=== PATIENT | male | born 1970 | race Caucasian/White ===

== ENCOUNTER 2017-07-18 11:23 | Inpatient (IN) | payer OTHER ==
[2017-07-18 13:41] LABS: BASOPHIL 0.2 % (0-2.0); EOSINOPHIL 0.3 % (0-4.5); MCHC 33.8 g/dl (32.0-35.9); MEAN CELL VOLUME 97.8 fl (80-96); MEAN PLT VOLUME 8.3 fl (7.5-11.1); NEUTROPHILS 89.9 % (42.8-82.8); PLATELET COUNT 195 K/MM3 (134-434); RDW 13.1 % (11.9-15.9); WHITE BLOOD COUNT 14.8 K/mm3 (4.0-10.0)
[2017-07-18 14:07] LABS: ALBUMIN 3.9 g/dl (3.4-5.0); ANION GAP 5 (8-16); BILIRUBIN,TOTAL 0.2 mg/dL (0.2-1.0); CALCIUM 9.6 mg/dL (8.5-10.1); CO2 32 mmol/L (21-32); CREATININE 1.1 mg/dL (0.7-1.3); GLUCOSE,RANDOM 121 mg/dL (74-106); SGOT/AST 12 U/L (15-37); SGPT/ALT 18 U/L (12-78); TOT PROT 7.5 g/dl (6.4-8.2)
[2017-07-18 14:08] LABS: ALK PHOS 64 U/L (45-117)
--- NOTE | 2017-07-18 15:52 | PDOC ---
History of Present Illness - General History Source: Patient Exam Limitations: No Limitations - History of Present Illness Initial Comments: 07/18/17 16:09 The patient is a 47 year old male with a significant past medical history of mild mental retardation, seizure disorder, schizophrenia, depression and hypertension who presents to the ED s/p fall earlier today. The patient reports he was walking down a flight of stairs when he tripped and fell down 3 stairs towards the bottom. Patient states he landed on his back but denies injury to the head. Patient reports pain to his lower back and a slight frontal headache. Denies fever or chills. Denies nausea, vomiting. Denies cough. Denies loss of consciousness. Denies any other symptoms. Denies a history of falling. <Char Whatley - Last Filed: 07/18/17 16:33> - General History Source: Patient, Other (aid) Exam Limitations: No Limitations <Dana Ricketts - Last Filed: 07/18/17 17:00> - General Chief Complaint: Injury Stated Complaint: INJURY Time Seen by Provider: 07/18/17 12:36 Past History <Char Whatley - Last Filed: 07/18/17 16:33> - Past Medical History GI Disorders: Yes Psychiatric Problems: Yes (depression,explosive d/o) Seizures: Yes - Suicide/Smoking/Psychosocial Hx Smoking History: Never smoked Have you smoked in the past 12 months: No Number of Cigarettes Smoked Daily: 0 Cigars Per Day: 0 Information on smoking cessation initiated: No Hx Alcohol Use: No Drug/Substance Use Hx: No Substance Use Type: None <Dana Ricketts - Last Filed: 07/18/17 17:00> - Past Medical History Allergies/Adverse Reactions: Allergies Allergy/AdvReac Type Severity Reaction Status Date / Time No Known Allergies Allergy Verified 07/18/17 12:58 Home Medications: Ambulatory Orders Bethanechol Chloride [Urecholine -] 50 mg PO BID 10/28/15 Buspirone HCl [Buspar -] 15 mg PO BID 10/28/15 Calcium Carbonate/Vitamin D3 [Oystercal-D 500 mg-400 Unit Tb] 1 each PO DAILY Clozapine [Clozaril] 300 mg PO DAILY 10/28/15 Divalproex *ER* [Depakote *ER* -] 250 mg PO DAILY 10/28/15 Divalproex *ER* [Depakote *ER* -] 500 mg PO HS 10/28/15 Docusate Sodium [Colace -] 300 mg PO TID 10/28/15 Enalapril Maleate [Vasotec -] 2.5 mg PO DAILY 10/28/15 Ergocalciferol (Vitamin D2) [Vitamin D] 50,000 unit PO DAILY 10/28/15 Folic Acid - 1 mg PO DAILY 10/28/15 Lacosamide [Vimpat -] 50 mg PO BID 10/28/15 Levothyroxine [Synthroid -] 15 mcg PO DAILY 10/28/15 Levothyroxine [Synthroid -] 175 mcg PO DAILY 10/28/15 [place] Carbonate [Eskalith -] 450 mg PO BID 10/28/15 Multivitamins [Tab-A-Vit -] 1 tab PO DAILY 10/28/15 Omeprazole [Prilosec (RX)] 20 mg PO DAILY 10/28/15 Sennosides [Senna] 8.6 mg PO BID 10/28/15 Tamsulosin HCl [Flomax] 0.4 mg PO DAILY 10/28/15 Review of Systems - Review of Systems Able to Perform ROS?: Yes Comments:: 07/18/17 16:09 GENERAL/CONSTITUTIONAL: No fever or chills. No weakness. HEAD, EYES, EARS, NOSE AND THROAT: No change in vision. No ear pain or discharge. No sore throat. CARDIOVASCULAR: No chest pain or shortness of breath. RESPIRATORY: No cough, wheezing, or hemoptysis. GASTROINTESTINAL: No nausea, vomiting, diarrhea or constipation. GENITOURINARY: No dysuria, frequency, or change in urination. MUSCULOSKELETAL: + back pain. No joint or muscle swelling or pain. No neck pain. SKIN: No rash NEUROLOGIC: + headache. No vertigo, loss of consciousness, or change in strength/sensation. ENDOCRINE: No increased thirst. No abnormal weight change. HEMATOLOGIC/LYMPHATIC: No anemia, easy bleeding, or history of blood clots. ALLERGIC/IMMUNOLOGIC: No hives or skin allergy. All Other Systems: Reviewed and Negative <Char Whatley - Last Filed: 07/18/17 16:33> *Physical Exam - Vital Signs Last Vital Signs Temp Pulse Resp BP Pulse Ox 98.6 F 72 16 131/70 100 07/18/17 11:38 07/18/17 11:38 07/18/17 11:38 07/18/17 11:38 07/18/17 11:38 - Physical Exam Comments: 07/18/17 16:09 GENERAL: Awake, alert, and fully oriented, in no acute distress HEAD: No signs of trauma EYES: PERRLA, EOMI, sclera anicteric, conjunctiva clear ENT: Auricles normal inspection, hearing grossly normal, nares patent, oropharynx clear without exudates. Moist mucosa NECK: Normal ROM, supple, no lymphadenopathy, JVD, or masses. No midline cervical spinal tenderness. LUNGS: Breath sounds equal, clear to auscultation bilaterally. No wheezes, and no crackles HEART: Regular rate and rhythm, normal S1 and S2, no murmurs, rubs or gallops ABDOMEN: Soft, nontender, normoactive bowel sounds. No guarding, no rebound. No masses EXTREMITIES: Normal range of motion, no edema. No clubbing or cyanosis. No cords, erythema, or tenderness MUSCULOSKELETAL: + lower back tenderness. NEUROLOGICAL: Alert, oriented. GCS 25, 5/5 strength intact. At baseline. SKIN: Warm, Dry, normal turgor, no rashes or lesions noted. <Char Whatley - Last Filed: 07/18/17 16:33> - Vital Signs Last Vital Signs Temp Pulse Resp BP Pulse Ox 98.6 F 72 16 131/70 100 07/18/17 11:38 07/18/17 11:38 07/18/17 11:38 07/18/17 11:38 07/18/17 11:38 <Dana Ricketts - Last Filed: 07/18/17 17:00> Heart Score/ECG Review #1 General ECG Interpretation: Sinus Rhythm, Normal Rate (72), Normal Intervals, No acute ischemic changes <Dana Ricketts - Last Filed: 07/18/17 17:00> ED Treatment Course - LABORATORY CBC & Chemistry Diagram: 07/18/17 13:31 07/18/17 13:31 - ADDITIONAL ORDERS Additional order review: Laboratory Results 07/18/17 07/18/17 13:31 13:31 Sodium 140 Potassium 4.5 Chloride 103 Carbon Dioxide 32 Anion Gap 5 L BUN 15 D Creatinine 1.1 D Creat Clearance w eGFR > 60 Random Glucose 121 H D Lactic Acid 1.1 Calcium 9.6 Total Bilirubin 0.2 D AST 12 L ALT 18 Alkaline Phosphatase 64 D Total Protein 7.5 Albumin 3.9 07/18/17 13:31 RBC 3.90 L MCV 97.8 H MCHC 33.8 RDW 13.1 MPV 8.3 Neutrophils % 89.9 H D Lymphocytes % 5.2 L D Monocytes % 4.4 Eosinophils % 0.3 D Basophils % 0.2 - RADIOLOGY Radiograph Interpretation: 07/18/17 16:33 CT/HEAD CT WITHOUT CONTRAST Impression: No CT evidence of acute intracranial pathology. Reported by: Jose Miguel Barton CT/CERVICAL SPINE CT W/O CONTR Impression: No fracture is identified. CT/THORACIC SPINE CT W/O CONTRAST Impression: No thoracic spine fracture is identified. An acute nondisplaced fracture of the left eight rib is noted posteriorly. Several small right upper lobe opacities are seen which may be on the basis of infiltrates, pulmonary contusion or less likely groundglass pulmonary nodules. Correlate clinically and will close follow-up CT to evaluate for resolution. Reported by: Jose Miguel Barton - Medications Given in the ED: ED Medications Discontinued Medications Generic Name Dose Route Start Last Admin Trade Name Freq PRN Reason Stop Dose Admin Ketorolac Tromethamine 30 mg 07/18/17 15:55 07/18/17 16:02 Toradol Injection - IVPUSH 07/18/17 15:56 30 mg ONCE ONE Administration <Char Whatley - Last Filed: 07/18/17 16:33> - LABORATORY CBC & Chemistry Diagram: 07/18/17 13:31 07/18/17 13:31 - ADDITIONAL ORDERS Additional order review: Laboratory Results 07/18/17 07/18/17 13:31 13:31 Sodium 140 Potassium 4.5 Chloride 103 Carbon Dioxide 32 Anion Gap 5 L BUN 15 D Creatinine 1.1 D Creat Clearance w eGFR > 60 Random Glucose 121 H D Lactic Acid 1.1 Calcium 9.6 Total Bilirubin 0.2 D AST 12 L ALT 18 Alkaline Phosphatase 64 D Total Protein 7.5 Albumin 3.9 07/18/17 13:31 RBC 3.90 L MCV 97.8 H MCHC 33.8 RDW 13.1 MPV 8.3 Neutrophils % 89.9 H D Lymphocytes % 5.2 L D Monocytes % 4.4 Eosinophils % 0.3 D Basophils % 0.2 <Dana Ricketts - Last Filed: 07/18/17 17:00> Medical Decision Making - Medical Decision Making 07/18/17 16:[address] Rendon at 16:03. Patient will be admitted <Char Whatley - Last Filed: 07/18/17 16:33> - Medical Decision Making 07/18/17 15:50 47 yo male with h/o schizoaffective disorde,r epilepsy, under 24 hour care here with aid. for fall down stairs. pt states he was walking down stairs, and tripped. fell down 3 - 4 stairs towards bottom of stair case. landed on his back. denies loc. does c/o mild headach.e no new weakness. numbness no vomiting. no f/c no other complaints. fall was unwitness. pt at his baseline. on exam awake alert head atraumatic. no cervical spine tenderness. lungs clear bilaterally heart rrr no mrg abd soft nt nd. ext wwp. no edema. no swelling. plan: r/o traumatic injury ct head. cervical spine and spinal ct r/o fx. pain control. arabella robertson back to facility. 07/18/17 16:29 pt wiht rib fracture. and possible infiltrate. no sxs or trauma suggestive of contusion. will treat with ceftriaxone and azithromycin. due to rib fracture in prescence of infection will admit of pain control, incentive spirometry and abx. d/w pushpinder sings. will admit to observationl. <Dana Ricketts - Last Filed: 07/18/17 17:00> *DC/Admit/Observation/Transfer - Attestations Scribe Attestion: 07/18/17 16:09 Documentation prepared by Char Whatley, acting as biomedical photographer for Dana Ricketts MD <Char Whatley - Last Filed: 07/18/17 16:33> - Discharge Dispostion Admit: Yes <Dana Ricketts - Last Filed: 07/18/17 17:00> Diagnosis at time of Disposition: Pneumonia, Closed rib fracture - Referrals
[2017-07-18] MEDS ORDERED: KETOROLAC TROMETHAMINE 30 MG/1 ML VIAL IVPUSH ONE (15:55)
[2017-07-18] MEDS ORDERED: CEFTRIAXONE 1 GM in DEXTROSE 5%-WATER - 100 ML IVPB ONE (16:08)
[2017-07-18] MEDS ORDERED: AZITHROMYCIN IVPB 500 MG in DEXTROSE 5%-WATER - 250 ML IVPB ONE (16:08)
[2017-07-18] MEDS ORDERED: cefTRIAXone SODIUM 1 GM VIAL ONE ×2 (16:48→16:49)
[2017-07-18] MEDS ORDERED: KETOROLAC TROMETHAMINE 30 MG/1 ML VIAL ONE (16:48)
[2017-07-18] MEDS ORDERED: AZITHROMYCIN IVPB 250 ML IVPB ONE (16:48)
[2017-07-18] MEDS ORDERED: ALBUTEROL SO4 0.083% IH SOL 2.5 MG/3 ML VIAL.NEB. NEB PRN (17:34)
[2017-07-18] MEDS ORDERED: CEFTRIAXONE 50 ML ONE (18:55)
[2017-07-18 20:14] VITALS: BMI 20.6
[2017-07-18 21:11] LABS: BASOPHIL 0.1 % (0-2.0); EOSINOPHIL 0.5 % (0-4.5); MCH 33.9 pg (25.7-33.7); MCHC 34.3 g/dl (32.0-35.9); MEAN CELL VOLUME 98.7 fl (80-96); MEAN PLT VOLUME 8.5 fl (7.5-11.1); NEUTROPHILS 79.1 % (42.8-82.8); PLATELET COUNT 183 K/MM3 (134-434); RDW 13.3 % (11.9-15.9); WHITE BLOOD COUNT 8.6 K/mm3 (4.0-10.0)
[2017-07-18] MEDS: LITHIUM CARBONATE 450 MG TABLET.ER PO SCH (21:31)
[2017-07-18] MEDS: busPIRone HCL 5 MG TABLET PO SCH (21:31)
[2017-07-18] MEDS: DIVALPROEX NA *ER* EXTEND REL 500 MG TABLET.SA (FP) PO SCH (21:31)
[2017-07-18] MEDS: BETHANECHOL CHLORIDE 25 MG TABLET PO SCH (21:31)
[2017-07-18] MEDS: HEPARIN NA (PORCINE) 5,000 UNITS/ML 1ML VIAL SQ SCH (21:32)
[2017-07-18] MEDS: LACOSAMIDE 50 MG TABLET PO SCH (21:32)
[2017-07-18] MEDS: SENNOSIDES 8.6MG TABLET (FP) PO SCH (21:32)
[2017-07-19] MEDS: ACETAMINOPHEN 325 MG TABLET (FP) PO PRN ×2 (05:04→13:04)
[2017-07-19] MEDS ORDERED: LEVOTHYROXINE NA 100 MCG TABLET (FP) ONE (05:53)
[2017-07-19] MEDS ORDERED: LEVOTHYROXINE NA 75 MCG TABLET (FP) ONE (05:53)
[2017-07-19] MEDS: LEVOTHYROXINE 100 MCG, LEVOTHYROXINE 75 MCG PO SCH (06:22)
--- NOTE | 2017-07-19 09:55 | EKG ---
Test Reason : Blood Pressure : / mmHG Vent. Rate : 072 BPM Atrial Rate : 072 BPM P-R Int : 162 ms QRS Dur : 100 ms QT Int : 372 ms P-R-T Axes : 072 026 043 degrees QTc Int : 407 ms POOR DATA QUALITY, INTERPRETATION MAY BE ADVERSELY AFFECTED NORMAL SINUS RHYTHM NORMAL ECG WHEN COMPARED WITH ECG OF 08-DEC-2009 12:48, NO SIGNIFICANT CHANGE WAS FOUND Confirmed by JOVANY RIZVI MD ([id number]) on 07/19/2017 9:54:45 AM Referred By: Confirmed By:JOVANY RIZVI MD
[2017-07-19] MEDS ORDERED: LEVOTHYROXINE NA 175 MCG TABLET PO SCH (10:00)
[2017-07-19] MEDS ORDERED: PATIENT'S OWN MEDICATION (NON-FORMULARY) (Calcium Carbonate/Vitamin D3 [Oystercal-D 500 Mg PO SCH (10:00)
[2017-07-19] MEDS ORDERED: PATIENT'S OWN MEDICATION (NON-FORMULARY) (Omeprazole 20 MG) PO SCH (10:00)
[2017-07-19] MEDS ORDERED: CLOZAPINE 300 MG PO SCH (10:00)
[2017-07-19] MEDS ORDERED: cefTRIAXone SODIUM 1 GM VIAL ONE (10:15)
[2017-07-19] MEDS ORDERED: PT OWN MED DRAWER 7, Y5N ONE ×2 (10:15→21:01)
[2017-07-19] MEDS ORDERED: DEXTROSE 5%-WATER - 50 ML IVPB ONE (10:15)
[2017-07-19] MEDS: CEFTRIAXONE 1 GM in DEXTROSE 5%-WATER - 50 ML IVPB SCH (10:23)
[2017-07-19] MEDS: FOLIC ACID 1 MG TABLET (FP) PO SCH (10:24)
[2017-07-19] MEDS: TAMSULOSIN HCL 0.4 MG CAP.ER.24H (FP) PO SCH (10:24)
[2017-07-19] MEDS: SENNOSIDES 8.6MG TABLET (FP) PO SCH ×2 (10:24→21:02)
[2017-07-19] MEDS: ENALAPRIL MALEATE 2.5 MG TABLET (FP) PO SCH (10:24)
[2017-07-19] MEDS: BETHANECHOL CHLORIDE 25 MG TABLET PO SCH ×2 (10:24→21:02)
[2017-07-19] MEDS: MULTIVITAMINS (DAILY MVI) TABLET (FP) PO SCH (10:24)
[2017-07-19] MEDS: LACOSAMIDE 50 MG TABLET PO SCH ×2 (10:24→21:02)
[2017-07-19] MEDS: PANTOPRAZOLE 20 MG TABLET (FP) PO SCH (10:24)
[2017-07-19] MEDS: HEPARIN NA (PORCINE) 5,000 UNITS/ML 1ML VIAL SQ SCH ×2 (10:25→21:02)
[2017-07-19] MEDS: CALCIUM 500MG/VIT-D 200 UNITS COMBO TABLET (FP) PO SCH (10:25)
[2017-07-19] MEDS: DIVALPROEX NA *ER* EXTEND REL 250 MG TABLET.SA PO SCH (10:26)
[2017-07-19] MEDS: busPIRone HCL 5 MG TABLET PO SCH ×2 (10:26→21:03)
[2017-07-19] MEDS: cloZAPine 100 MG TABLET PO SCH (10:27)
[2017-07-19] MEDS: LITHIUM CARBONATE 450 MG TABLET.ER PO SCH ×2 (10:27→21:03)
[2017-07-19] MEDS ORDERED: clonazePAM 0.5 MG TABLET PO PRN (15:12)
--- NOTE | 2017-07-19 15:19 | HP ---
Admitting History and Physical - Primary Care Physician PCP: Rios Rendon - Admission Chief Complaint: fall History of Present Illness: The patient is a 47 year old male with a significant past medical history of mild mental retardation, seizure disorder, schizophrenia, hypothyroidism, depression and hypertension who presents to the ED s/p fall . The patient reports he was walking down a flight of stairs when he tripped and fell down 3 stairs towards the bottom. Patient states he landed on his back but denies injury to the head. Patient reports pain to his lower back and a slight frontal headache. Denies fever or chills. Denies nausea, vomiting. Denies cough. Denies loss of consciousness. Denies any other symptoms. Denies a history of falling. work up done in er was -ve except showed rib fracture and possible pneumonia / lung opacities wbc were elevated also given abx ct head-ve pt kept for obs case was discussed with er physician. pt seen today sitting in chair. no distress. poor historian. denies pain. no cough/ headche. no h/o fever/ chills History Source: Medical Record, Caregiver - Smoking History Smoking history: Never smoked Have you smoked in the past 12 months: No Aproximately how many cigarettes per day: 0 - Alcohol/Substance Use Hx Alcohol Use: No Home Medications - Allergies Allergies/Adverse Reactions: Allergies Allergy/AdvReac Type Severity Reaction Status Date / Time No Known Allergies Allergy Verified 07/18/17 12:58 - Home Medications Home Medications: Ambulatory Orders Bethanechol Chloride [Urecholine -] 50 mg PO BID 10/28/15 Buspirone HCl [Buspar -] 15 mg PO BID 10/28/15 Calcium Carbonate/Vitamin D3 [Oystercal-D 500 mg-400 Unit Tb] 1 each PO DAILY Clozapine [Clozaril] 300 mg PO DAILY 10/28/15 Divalproex *ER* [Depakote *ER* -] 250 mg PO DAILY 10/28/15 Divalproex *ER* [Depakote *ER* -] 500 mg PO HS 10/28/15 Docusate Sodium [Colace -] 300 mg PO TID 10/28/15 Enalapril Maleate [Vasotec -] 2.5 mg PO DAILY 10/28/15 Ergocalciferol (Vitamin D2) [Vitamin D] 50,000 unit PO DAILY 10/28/15 Folic Acid - 1 mg PO DAILY 10/28/15 Lacosamide [Vimpat -] 50 mg PO BID 10/28/15 Levothyroxine [Synthroid -] 15 mcg PO DAILY 10/28/15 Levothyroxine [Synthroid -] 175 mcg PO DAILY 10/28/15 [place] Carbonate [Eskalith -] 450 mg PO BID 10/28/15 Multivitamins [Tab-A-Vit -] 1 tab PO DAILY 10/28/15 Omeprazole [Prilosec (RX)] 20 mg PO DAILY 10/28/15 Sennosides [Senna] 8.6 mg PO BID 10/28/15 Tamsulosin HCl [Flomax] 0.4 mg PO DAILY 10/28/15 Review of Systems Findings/Remarks: see rampart Physical Examination Vital Signs: Vital Signs Temperature 98.3 F 07/19/17 08:00 Pulse Rate 71 07/19/17 11:03 Respiratory Rate 20 07/19/17 08:00 Blood Pressure 149/73 07/19/17 08:00 O2 Sat by Pulse Oximetry (%) 97 07/19/17 11:03 Constitutional: Yes: No Distress, Calm Eyes: Yes: Conjunctiva Clear Neck: Yes: Supple Cardiovascular: Yes: Regular Rate and Rhythm Respiratory: Yes: CTA Bilaterally Gastrointestinal: Yes: Normal Bowel Sounds, Soft Edema: No Neurological: Yes: Alert Psychiatric: Yes: Alert Labs: CBC, BMP 07/18/17 20:00 Imaging - Results Chest X-ray: Report Reviewed Cat Scan: Report Reviewed EKG: Report Reviewed Problem List - Problems (1) Closed rib fracture Code(s): S22.39XA - FRACTURE OF ONE RIB, UNSP SIDE, INIT FOR CLOS FX (2) Pneumonia Code(s): J18.9 - PNEUMONIA, UNSPECIFIED ORGANISM (3) Hypertension Code(s): I10 - ESSENTIAL (PRIMARY) HYPERTENSION (4) Mental retardation Code(s): F79 - UNSPECIFIED INTELLECTUAL DISABILITIES (5) Hypothyroidism Code(s): E03.9 - HYPOTHYROIDISM, UNSPECIFIED Assessment/Plan stable doubt pneumonia cxr ok. will order ct chest. meds reviewed lithium level pending fall precautions. if stable- anticipate d/c in am.
[2017-07-19] MEDS: DIVALPROEX NA *ER* EXTEND REL 500 MG TABLET.SA (FP) PO SCH (21:03)
[2017-07-20] MEDS ORDERED: LEVOTHYROXINE NA 75 MCG TABLET (FP) ONE (05:34)
[2017-07-20] MEDS ORDERED: LEVOTHYROXINE NA 100 MCG TABLET (FP) ONE (05:34)
[2017-07-20] MEDS: LEVOTHYROXINE 100 MCG, LEVOTHYROXINE 75 MCG PO SCH (06:10)
[2017-07-20] MEDS ORDERED: VANCOMYCIN 1,000 MG in DEXTROSE 5%-WATER - 250 ML IVPB ONE (09:30)
[2017-07-20] MEDS ORDERED: cefTRIAXone SODIUM 1 GM VIAL ONE (10:28)
[2017-07-20] MEDS ORDERED: DEXTROSE 5%-WATER - 50 ML IVPB ONE (10:28)
[2017-07-20] MEDS ORDERED: PT OWN MED DRAWER 7, Y5N ONE ×2 (10:28→18:06)
[2017-07-20] MEDS: MULTIVITAMINS (DAILY MVI) TABLET (FP) PO SCH (10:31)
[2017-07-20] MEDS: HEPARIN NA (PORCINE) 5,000 UNITS/ML 1ML VIAL SQ SCH ×2 (10:31→21:38)
[2017-07-20] MEDS: LACOSAMIDE 50 MG TABLET PO SCH ×2 (10:31→21:38)
[2017-07-20] MEDS: CALCIUM 500MG/VIT-D 200 UNITS COMBO TABLET (FP) PO SCH (10:31)
[2017-07-20] MEDS: BETHANECHOL CHLORIDE 25 MG TABLET PO SCH ×2 (10:32→21:38)
[2017-07-20] MEDS: SENNOSIDES 8.6MG TABLET (FP) PO SCH ×2 (10:32→21:38)
[2017-07-20] MEDS: ENALAPRIL MALEATE 2.5 MG TABLET (FP) PO SCH (10:32)
[2017-07-20] MEDS: PANTOPRAZOLE 20 MG TABLET (FP) PO SCH (10:32)
[2017-07-20] MEDS: TAMSULOSIN HCL 0.4 MG CAP.ER.24H (FP) PO SCH (10:32)
[2017-07-20] MEDS: FOLIC ACID 1 MG TABLET (FP) PO SCH (10:32)
[2017-07-20] MEDS: CEFTRIAXONE 1 GM in DEXTROSE 5%-WATER - 50 ML IVPB SCH (10:34)
[2017-07-20] MEDS: busPIRone HCL 5 MG TABLET PO SCH ×2 (10:35→21:39)
[2017-07-20] MEDS: cloZAPine 100 MG TABLET PO SCH (10:36)
[2017-07-20] MEDS: DIVALPROEX NA *ER* EXTEND REL 250 MG TABLET.SA PO SCH (10:37)
[2017-07-20] MEDS: LITHIUM CARBONATE 450 MG TABLET.ER PO SCH ×2 (10:38→21:39)
--- NOTE | 2017-07-20 10:42 | PN ---
Progress Note (short form) - Note Progress Note: ID consult dictated imp/reccd s/p fall with rib fracture bacteremia possible pneumonia leukocytosis one of four blood cultures positive gpc clusters, suspect contaminant no signs of skin breakdown or clinical endocarditis repeat blood cultures prior to vancomycin on rocephin for possible pneumonia, f/u chest ct Problem List - Problems (1) Bacteremia Code(s): R78.81 - BACTEREMIA (2) Pneumonia Code(s): J18.9 - PNEUMONIA, UNSPECIFIED ORGANISM (3) Leukocytosis Code(s): D72.829 - ELEVATED WHITE BLOOD CELL COUNT, UNSPECIFIED
[2017-07-20] MEDS: DOCUSATE SODIUM 100 MG CAPSULE (FP) PO SCH ×2 (13:45→21:38)
[2017-07-20] MEDS: ACETAMINOPHEN 325 MG TABLET (FP) PO PRN (14:07)
--- NOTE | 2017-07-20 19:34 | PN ---
Progress Note (short form) - Note Progress Note: pt seen/ examined earlier today c/c- pain in back +ve one set of cultute-- GM +ve no other issues afebrile given one dose of vanco Vital Signs Temp 98.4 F 07/20/17 18:00 Pulse 97 H 07/20/17 18:00 Resp 20 07/20/17 18:00 BP 106/66 07/20/17 18:00 Pulse Ox 100 07/20/17 12:00 Intake & Output 07/19/17 07/20/17 07/20/17 23:59 11:59 23:59 Intake Total 350 50 450 Balance 350 50 450 Intake: IVPB 50 50 50 Oral 300 400 Other: Voiding Method Toilet Toilet Toilet # Unmeasured Voids Void 3 1 Bowel Movement No # Bowel Movements 0 Active Medications Acetaminophen (Tylenol -) 650 mg PO Q4H PRN PRN Reason: FEVER OR PAIN Last Admin: 07/20/17 14:07 Dose: 650 mg Albuterol Sulfate (Ventolin 0.083% Nebulizer Soln -) 1 amp NEB Q4H PRN PRN Reason: SHORT OF BREATH/WHEEZING Bethanechol Chloride (Urecholine -) 50 mg PO BID [facility] Last Admin: 07/20/17 10:32 Dose: 50 mg Buspirone HCl (Buspar -) 15 mg PO BID [facility] Last Admin: 07/20/17 10:35 Dose: 15 mg Calcium Carbonate/Cholecalciferol (Os-Arturo 500+D -) 1 tab PO DAILY [facility] Last Admin: 07/20/17 10:31 Dose: 1 tab Clonazepam (Klonopin -) 0.5 mg PO BID PRN PRN Reason: ANXIETY Clozapine (Clozaril -) 300 mg PO DAILY [facility] Last Admin: 07/20/17 10:36 Dose: 300 mg Divalproex Sodium (Depakote *Er* -) 250 mg PO DAILY [facility] Last Admin: 07/20/17 10:37 Dose: 250 mg Divalproex Sodium (Depakote *Er* -) 500 mg PO HS [facility] Last Admin: 07/19/17 21:03 Dose: 500 mg Docusate Sodium (Colace -) 100 mg PO TID [facility] Last Admin: 07/20/17 13:45 Dose: 100 mg Enalapril Maleate (Vasotec -) 2.5 mg PO DAILY [facility] Last Admin: 07/20/17 10:32 Dose: 2.5 mg Folic Acid (Folic Acid -) 1 mg PO DAILY [facility] Last Admin: 07/20/17 10:32 Dose: 1 mg Heparin Sodium (Porcine) (Heparin -) 5,000 unit SQ BID [facility] Last Admin: 07/20/17 10:31 Dose: 5,000 unit Ceftriaxone Sodium 1 gm/ (Dextrose) 50 mls @ 100 mls/hr IVPB DAILY [facility] Last Admin: 07/20/17 10:34 Dose: 100 mls/hr Lacosamide (Vimpat -) 50 mg PO BID [facility] Last Admin: 07/20/17 10:31 Dose: 50 mg Levothyroxine Sodium (Synthroid -) 150 mcg PO SuFrSa@0700 [facility] Levothyroxine Sodium 100 mcg/ (Levothyroxine Sodium 75 mcg) 175 mcg PO MoTuWeTh @0700 [facility] [place] Carbonate (Eskalith -) 450 mg PO BID [facility] Last Admin: 07/20/17 10:38 Dose: 450 mg Multivitamins/Minerals/Vitamin C (Tab-A-Vit -) 1 tab PO DAILY [facility] Last Admin: 07/20/17 10:31 Dose: 1 tab Naproxen (Naprosyn -) 500 mg PO BID PRN PRN Reason: BACK PAIN Pantoprazole Sodium (Protonix -) 20 mg PO DAILY [facility] Last Admin: 07/20/17 10:32 Dose: 20 mg Senna (Senna -) 1 tab PO BID [facility] Last Admin: 07/20/17 10:32 Dose: 1 tab Tamsulosin HCl (Flomax -) 0.4 mg PO DAILY@0830 [facility] Last Admin: 07/20/17 10:32 Dose: 0.4 mg CBC, BMP 07/18/17 20:00 07/18/17 13:31 ct chest-- noted Microbiology 07/18/17 16:59 Blood Culture - Preliminary Blood - Peripheral Venous NO GROWTH OBTAINED AFTER 48 HOURS, INCUBATION TO CONTINUE FOR 3 DAYS. 07/18/17 16:59 Blood Culture - Preliminary Blood - Peripheral Venous Pending Organism Physical Examination Constitutional: Yes: No Distress, Calm Eyes: Yes: Conjunctiva Clear Neck: Yes: Supple Cardiovascular: Yes: Regular Rate and Rhythm Respiratory: Yes: CTA Bilaterally Gastrointestinal: Yes: Normal Bowel Sounds, Soft Edema: No Neurological: Yes: Alert Psychiatric: Yes: Alert Imaging - Results Chest X-ray: Report Reviewed Cat Scan: Report Reviewed EKG: Report Reviewed Assessment/Plan +ve gm +ve bactremia likley contaminant Pneumonia ? ct chest noted meds reviewed naproxyn for pain-likely muscular due to fall fall precautions. lithium level pending. will follow Problem List - Problems (1) Closed rib fracture Code(s): S22.39XA - FRACTURE OF ONE RIB, UNSP SIDE, INIT FOR CLOS FX (2) Pneumonia Code(s): J18.9 - PNEUMONIA, UNSPECIFIED ORGANISM (3) Hypertension Code(s): I10 - ESSENTIAL (PRIMARY) HYPERTENSION (4) Mental retardation Code(s): F79 - UNSPECIFIED INTELLECTUAL DISABILITIES (5) Hypothyroidism Code(s): E03.9 - HYPOTHYROIDISM, UNSPECIFIED
[2017-07-20] MEDS: NAPROXEN 500 MG TABLET (FP) PO PRN (19:48)
[2017-07-20] MEDS: DIVALPROEX NA *ER* EXTEND REL 500 MG TABLET.SA (FP) PO SCH (21:39)
--- NOTE | 2017-07-20 21:53 | CONS ---
DATE OF CONSULTATION: 07/20/2017 REQUESTING PROVIDER: Rios Rendon MD HISTORY: This is a 47-year-old man with past medical history of mild mental retardation, schizoaffective disorder, and depression. He lives in a long term. He tripped and sustained a fall down 3 steps towards the bottom. He landed on his back. He was brought to the emergency room where he had multiple imaging studies. He reports discomfort in his lower back. He had a head CT that was negative. Cervical spine and thoracic spine CT scans showed a left 8th rib fracture and possible pneumonia. He was noted to have an elevated white count, but no fevers. He was admitted for observation. Given his elevated white count, which was 14.8 on admission and the abnormal possible infiltrate on CT scan, he was started on ceftriaxone and a dedicated chest CT was ordered. I am asked to see him because one of four blood culture bottles is now growing gram-positive cocci and clusters. Patient is awake and alert. He still notes that he has some low back pain, but otherwise feels well. PAST MEDICAL HISTORY: Notable for a history of mild mental retardation, seizure disorder, depression, hypothyroidism, hypertension, and schizoaffective disorder. PAST SURGICAL HISTORY: There is no known surgical history. ALLERGIES: No known drug allergies. MEDICATIONS AT PRISON: Include Vimpat, clonazepam, Depakote, BuSpar, lithium, Vasotec, vitamin D, Os-Arturo, multivitamins, folic acid, omeprazole, senna, Colace, bethanechol, clozapine, Flomax, Synthroid. FAMILY HISTORY: Not available. SOCIAL HISTORY: As stated previously, resides in a long term. REVIEW OF SYSTEMS: He describes having low back pain, otherwise there are no complaints. PHYSICAL EXAMINATION: Vital signs: Since admission, he has been afebrile since admission. Current temperature is 98.2, pulse 84, blood pressure 128/80, respiratory rate 16, saturating 97% on room air. HEENT: He is normocephalic. His eyes are anicteric. He has poor dentition. He does not recall when he last went to the dentist. Neck: Supple. Lungs: Diminished breath sounds at the bases. Heart: Regular rate and rhythm. There are no murmurs, rubs, or gallops. Abdomen: Soft and nontender. Extremities: Without edema. He has no skin breakdown. He has no phlebitis. LABORATORY: White count on admission was 14.8. This morning it is 8.6, hemoglobin 12.6, platelets of 183. Chemistries: BUN is 15 and creatinine is 1.1. LFTs are normal. Blood cultures: 1 of 4 bottles are growing gram-positive cocci and clusters. Imaging is as previously reported. IN SUMMARY: This is a 47-year-old man, status post fall with rib fracture, bacteremia, possible pneumonia and leukocytosis. One of four blood cultures is positive for gram-positive cocci and clusters. I suspect contaminant as there is no sign of skin breakdown or clinical endocarditis. He has no fever as well. I would recommend we repeat blood cultures before giving him vancomycin. He is on Rocephin for possible pneumonia and would follow up chest CT to see if we need to continue this as well. Further recommendations to follow based on his clinical course. Jessica GONZALEZ/[id number]
[2017-07-21] MEDS ORDERED: LEVOTHYROXINE NA 75 MCG TABLET (FP) ONE (06:03)
[2017-07-21] MEDS ORDERED: LEVOTHYROXINE NA 100 MCG TABLET (FP) ONE (06:03)
[2017-07-21] MEDS: LEVOTHYROXINE 100 MCG, LEVOTHYROXINE 75 MCG PO SCH (06:05)
[2017-07-21] MEDS: DOCUSATE SODIUM 100 MG CAPSULE (FP) PO SCH ×3 (06:05→21:07)
[2017-07-21] MEDS: NAPROXEN 500 MG TABLET (FP) PO PRN ×2 (06:06→21:08)
[2017-07-21] MEDS: TAMSULOSIN HCL 0.4 MG CAP.ER.24H (FP) PO SCH (08:13)
[2017-07-21] MEDS ORDERED: PT OWN MED DRAWER 7, Y5N ONE (09:40)
[2017-07-21] MEDS ORDERED: cefTRIAXone SODIUM 1 GM VIAL ONE (09:40)
[2017-07-21] MEDS ORDERED: DEXTROSE 5%-WATER - 50 ML IVPB ONE (09:41)
[2017-07-21] MEDS: CEFTRIAXONE 1 GM in DEXTROSE 5%-WATER - 50 ML IVPB SCH (09:41)
[2017-07-21] MEDS: PANTOPRAZOLE 20 MG TABLET (FP) PO SCH (09:42)
[2017-07-21] MEDS: CALCIUM 500MG/VIT-D 200 UNITS COMBO TABLET (FP) PO SCH (09:42)
[2017-07-21] MEDS: ENALAPRIL MALEATE 2.5 MG TABLET (FP) PO SCH (09:42)
[2017-07-21] MEDS: SENNOSIDES 8.6MG TABLET (FP) PO SCH ×2 (09:42→21:07)
[2017-07-21] MEDS: FOLIC ACID 1 MG TABLET (FP) PO SCH (09:42)
[2017-07-21] MEDS: MULTIVITAMINS (DAILY MVI) TABLET (FP) PO SCH (09:50)
[2017-07-21] MEDS: BETHANECHOL CHLORIDE 25 MG TABLET PO SCH ×2 (09:50→21:07)
[2017-07-21] MEDS: LACOSAMIDE 50 MG TABLET PO SCH ×2 (09:50→21:07)
[2017-07-21] MEDS: busPIRone HCL 5 MG TABLET PO SCH ×2 (09:50→21:08)
[2017-07-21] MEDS: cloZAPine 100 MG TABLET PO SCH (09:51)
[2017-07-21] MEDS: DIVALPROEX NA *ER* EXTEND REL 250 MG TABLET.SA PO SCH (09:51)
[2017-07-21] MEDS: LITHIUM CARBONATE 450 MG TABLET.ER PO SCH ×2 (09:52→21:11)
[2017-07-21] MEDS: HEPARIN NA (PORCINE) 5,000 UNITS/ML 1ML VIAL SQ SCH ×2 (09:55→21:07)
--- NOTE | 2017-07-21 10:53 | PN ---
Progress Note (short form) - Note Progress Note: no distress No c/o cough and SOB Feels fine Vital Signs - 24 hr 07/20/17 07/20/17 07/20/17 12:00 14:00 18:00 Temperature 98.0 F 98.4 F Pulse Rate 108 H 97 H Respiratory 20 20 Rate Blood Pressure 137/71 106/66 O2 Sat by Pulse 100 Oximetry (%) 07/20/17 07/20/17 07/21/17 20:00 22:00 02:00 Temperature 97.9 F 98.0 F Pulse Rate 90 96 H Respiratory 18 20 Rate Blood Pressure 110/72 126/76 O2 Sat by Pulse 98 Oximetry (%) 07/21/17 07/21/17 07/21/17 04:00 06:00 09:07 Temperature 98.2 F 98.2 F Pulse Rate 86 84 Respiratory 20 20 Rate Blood Pressure 131/82 130/44 O2 Sat by Pulse 96 Oximetry (%) Current Medications Generic Name Dose Route Start Last Admin Trade Name Freq PRN Reason Stop Dose Admin Acetaminophen 650 mg 07/18/17 17:34 07/20/17 14:07 Tylenol - PO 650 mg Q4H PRN Administration FEVER OR PAIN Albuterol Sulfate 1 amp 07/18/17 17:34 Ventolin 0.083% Nebulizer Soln - NEB Q4H PRN SHORT OF BREATH/WHEEZING Bethanechol Chloride 50 mg 07/18/17 22:00 07/21/17 09:50 Urecholine - PO 50 mg BID TORSTEN Administration Buspirone HCl 15 mg 07/18/17 22:00 07/21/17 09:50 Buspar - PO 15 mg BID TORSTEN Administration Calcium Carbonate/Cholecalciferol 1 tab 07/19/17 10:00 07/21/17 09:42 Os-Arturo 500+D - PO 1 tab DAILY TORSTEN Administration Clonazepam 0.5 mg 07/19/17 15:12 Klonopin - PO BID PRN ANXIETY Clozapine 300 mg 07/19/17 10:00 07/21/17 09:51 Clozaril - PO 300 mg DAILY TORSTEN Administration Divalproex Sodium 250 mg 07/19/17 10:00 07/21/17 09:51 Depakote *Er* - PO 250 mg DAILY TORSTEN Administration Divalproex Sodium 500 mg 07/18/17 22:00 07/20/17 21:39 Depakote *Er* - PO 500 mg HS TORSTEN Administration Docusate Sodium 100 mg 07/20/17 14:00 07/21/17 06:05 Colace - PO 100 mg TID TORSTEN Administration Enalapril Maleate 2.5 mg 07/19/17 10:00 07/21/17 09:42 Vasotec - PO 2.5 mg DAILY TORSTEN Administration Folic Acid 1 mg 07/19/17 10:00 07/21/17 09:42 Folic Acid - PO 1 mg DAILY TORSTEN Administration Heparin Sodium (Porcine) 5,000 unit 07/18/17 22:00 07/21/17 09:55 Heparin - SQ 5,000 unit BID TORSTEN Administration Ceftriaxone Sodium 1 gm/ 50 mls @ 100 mls/hr 07/19/17 10:00 07/21/17 09:41 Dextrose IVPB 100 mls/hr DAILY TORSTEN Administration Lacosamide 50 mg 07/18/17 22:00 07/21/17 09:50 Vimpat - PO 50 mg BID TORSTEN Administration Levothyroxine Sodium 150 mcg 07/24/17 07:00 Synthroid - PO [id number]@0700 TORSTEN Levothyroxine Sodium 100 mcg/ 175 mcg 07/21/17 07:00 07/21/17 06:05 Levothyroxine Sodium 75 mcg PO 175 mcg [id number]@0700 TORSTEN Administration [place] Carbonate 450 mg 07/18/17 22:00 07/21/17 09:52 Eskalith - PO 450 mg BID TORSTEN Administration Multivitamins/Minerals/Vitamin C 1 tab 07/19/17 10:00 07/21/17 09:50 Tab-A-Vit - PO 1 tab DAILY TORSTEN Administration Naproxen 500 mg 07/20/17 16:40 07/21/17 06:06 Naprosyn - PO 500 mg BID PRN Administration BACK PAIN Pantoprazole Sodium 20 mg 07/19/17 10:00 07/21/17 09:42 Protonix - PO 20 mg DAILY TORSTEN Administration Senna 1 tab 07/18/17 22:00 07/21/17 09:42 Senna - PO 1 tab BID TORSTEN Administration Tamsulosin HCl 0.4 mg 07/19/17 08:30 07/21/17 08:13 Flomax - PO 0.4 mg DAILY@0830 TORSTEN Administration Laboratory Results - last 24 hr 07/19/17 06:40 [place] 1.2 S1 S2 RRR Lungs clear Abd- soft, NT No edema A/P ? opacification right lung-- will order CT chest in 3 months ? Pneumonia- on antibiotics repeat blood cultures pending-- one of 4 bottles positive-- likely contaminant if repeat negative, will dc pt to [facility] tomorrow Problem List - Problems (1) Bacteremia Code(s): R78.81 - BACTEREMIA (2) Hypertension Code(s): I10 - ESSENTIAL (PRIMARY) HYPERTENSION (3) Leukocytosis Code(s): D72.829 - ELEVATED WHITE BLOOD CELL COUNT, UNSPECIFIED (4) Pneumonia Code(s): J18.9 - PNEUMONIA, UNSPECIFIED ORGANISM
[2017-07-21] MEDS ORDERED: BISACODYL 10 MG SUPP.RECT RC ONE (13:55)
--- NOTE | 2017-07-21 16:25 | PN ---
Progress Note (short form) - Note Progress Note: NAD Vital Signs Period Temp Pulse Resp BP Sys/Coughlin Pulse Ox Last 24 Hr 97.9 F-98.8 F 84-100 18-20 106-131/44-82 96-98 cor-rrr lungs clear abd soft,nt ext no edema CBC, BMP 07/18/17 20:00 07/18/17 13:31 Microbiology 07/20/17 11:05 Blood - Peripheral Venous Blood Culture - Preliminary NO GROWTH OBTAINED AFTER 24 HOURS, INCUBATION TO CONTINUE FOR 4 DAYS. 07/20/17 11:00 Blood - Peripheral Venous Blood Culture - Preliminary NO GROWTH OBTAINED AFTER 24 HOURS, INCUBATION TO CONTINUE FOR 4 DAYS. 07/18/17 16:59 Blood - Peripheral Venous Blood Culture - Preliminary NO GROWTH OBTAINED AFTER 48 HOURS, INCUBATION TO CONTINUE FOR 3 DAYS. 07/18/17 16:59 Blood - Peripheral Venous Blood Culture - Preliminary Pending Organism imp/reccd s/p fall with rib fracture bacteremia possible pneumonia leukocytosis one of four blood cultures positive gpc clusters, suspect contaminant f/u cultures in am continue ceftriaxone for pneumonia hopefully home in am on ceftin Problem List - Problems (1) Bacteremia Code(s): R78.81 - BACTEREMIA (2) Pneumonia Code(s): J18.9 - PNEUMONIA, UNSPECIFIED ORGANISM (3) Leukocytosis Code(s): D72.829 - ELEVATED WHITE BLOOD CELL COUNT, UNSPECIFIED
[2017-07-21] MEDS: DIVALPROEX NA *ER* EXTEND REL 500 MG TABLET.SA (FP) PO SCH (21:08)
[2017-07-22 01:55] VITALS: PULSE 77
[2017-07-22] MEDS ORDERED: LEVOTHYROXINE NA 75 MCG TABLET (FP) ONE (06:05)
[2017-07-22] MEDS ORDERED: LEVOTHYROXINE NA 100 MCG TABLET (FP) ONE (06:06)
[2017-07-22] MEDS: LEVOTHYROXINE 100 MCG, LEVOTHYROXINE 75 MCG PO SCH (06:07)
[2017-07-22] MEDS: DOCUSATE SODIUM 100 MG CAPSULE (FP) PO SCH (06:07)
[2017-07-22] MEDS: TAMSULOSIN HCL 0.4 MG CAP.ER.24H (FP) PO SCH (08:13)
--- NOTE | 2017-07-22 09:42 | DS ---
Physical Examination Vital Signs: Vital Signs Temperature 97.9 F 07/22/17 01:55 Pulse Rate 77 07/22/17 01:55 Respiratory Rate 19 07/22/17 01:55 Blood Pressure 114/74 07/22/17 01:55 O2 Sat by Pulse Oximetry (%) 95 07/21/17 20:20 Constitutional: Yes: No Distress, Calm Cardiovascular: Yes: Regular Rate and Rhythm Respiratory: Yes: CTA Bilaterally Gastrointestinal: Yes: Normal Bowel Sounds, Soft. No: Abdomen, Obese, Distention, Tenderness Edema: No Discharge Summary Reason For Visit: PNEUMONIA, CLOSED RIB FRACTURE Current Active Problems Bacteremia (Acute) Closed rib fracture (Acute) Hypertension (Acute) Hypothyroidism (Acute) Leukocytosis (Acute) Mental retardation (Acute) Pneumonia (Acute) Hospital Course: Admitted for fall- found to have left rib fracture Also found to have pneumonia Started on iv antibiotics pt better CT chest shows right lobe opacification-- needs follow up CT chest in 3 months to reassess the opacity blood cultures were repeated and they are negative initial one shows one of 4 bottles positive for bacteremia -- likely contaminant stable for dc to home may resume work shop Condition: Improved - Instructions Referrals: Rios Rendon MD [Primary Care Provider] - Disposition: HALF-WAY FACILITY - Home Medications Comprehensive Discharge Medication List: Ambulatory Orders Bethanechol Chloride [Urecholine -] 50 mg PO BID 10/28/15 Buspirone HCl [Buspar -] 15 mg PO BID 10/28/15 Calcium Carbonate/Vitamin D3 [Oystercal-D 500 mg-400 Unit Tb] 1 each PO DAILY Clozapine [Clozaril] 300 mg PO DAILY 10/28/15 Divalproex *ER* [Depakote *ER* -] 250 mg PO DAILY 10/28/15 Divalproex *ER* [Depakote *ER* -] 500 mg PO HS 10/28/15 Docusate Sodium [Colace -] 300 mg PO TID 10/28/15 Enalapril Maleate [Vasotec -] 2.5 mg PO DAILY 10/28/15 Ergocalciferol (Vitamin D2) [Vitamin D] 50,000 unit PO DAILY 10/28/15 Folic Acid - 1 mg PO DAILY 10/28/15 Lacosamide [Vimpat -] 50 mg PO BID 10/28/15 Levothyroxine [Synthroid -] 15 mcg PO DAILY 10/28/15 Levothyroxine [Synthroid -] 175 mcg PO DAILY 10/28/15 [place] Carbonate [Eskalith -] 450 mg PO BID 10/28/15 Multivitamins [Tab-A-Vit -] 1 tab PO DAILY 10/28/15 Omeprazole [Prilosec (RX)] 20 mg PO DAILY 10/28/15 Sennosides [Senna] 8.6 mg PO BID 10/28/15 Tamsulosin HCl [Flomax] 0.4 mg PO DAILY 10/28/15
[2017-07-22] MEDS ORDERED: PT OWN MED DRAWER 7, Y5N ONE (09:43)
[2017-07-22] MEDS ORDERED: cefTRIAXone SODIUM 1 GM VIAL ONE (09:43)
[2017-07-22] MEDS ORDERED: DEXTROSE 5%-WATER - 50 ML IVPB ONE (09:44)
--- NOTE | 2017-07-22 09:46 | PN ---
Progress Note (short form) - Note Progress Note: NAD feels well wants to go home Vital Signs Period Temp Pulse Resp BP Sys/Coughlin Pulse Ox Last 24 Hr 97.9 F-98.8 F 77-102 19-20 114-128/66-74 95 cor-rrr lungs clear abd soft,nt ext no edema CBC, BMP 07/18/17 20:00 07/18/17 13:31 Microbiology 07/18/17 16:59 Blood - Peripheral Venous Blood Culture - Preliminary Anaerobic Cocci 07/18/17 16:59 Blood - Peripheral Venous Blood Culture - Preliminary NO GROWTH OBTAINED AFTER 72 HOURS, INCUBATION TO CONTINUE FOR 2 DAYS. 07/20/17 11:05 Blood - Peripheral Venous Blood Culture - Preliminary NO GROWTH OBTAINED AFTER 24 HOURS, INCUBATION TO CONTINUE FOR 4 DAYS. 07/20/17 11:00 Blood - Peripheral Venous Blood Culture - Preliminary NO GROWTH OBTAINED AFTER 24 HOURS, INCUBATION TO CONTINUE FOR 4 DAYS. imp/reccd s/p fall with rib fracture bacteremia-suspect contaminant possible pneumonia leukocytosis one of four blood cultures positive gpc clusters, suspect contaminant can switch to po augmentin 875 bid for 7 days please call back if needed Problem List - Problems (1) Bacteremia Code(s): R78.81 - BACTEREMIA (2) Pneumonia Code(s): J18.9 - PNEUMONIA, UNSPECIFIED ORGANISM (3) Leukocytosis Code(s): D72.829 - ELEVATED WHITE BLOOD CELL COUNT, UNSPECIFIED
[2017-07-22] MEDS: PANTOPRAZOLE 20 MG TABLET (FP) PO SCH (09:56)
[2017-07-22] MEDS: MULTIVITAMINS (DAILY MVI) TABLET (FP) PO SCH (09:56)
[2017-07-22] MEDS: SENNOSIDES 8.6MG TABLET (FP) PO SCH (09:56)
[2017-07-22] MEDS: FOLIC ACID 1 MG TABLET (FP) PO SCH (09:56)
[2017-07-22] MEDS: ENALAPRIL MALEATE 2.5 MG TABLET (FP) PO SCH (09:56)
[2017-07-22] MEDS: LACOSAMIDE 50 MG TABLET PO SCH (09:56)
[2017-07-22] MEDS: CALCIUM 500MG/VIT-D 200 UNITS COMBO TABLET (FP) PO SCH (09:56)
[2017-07-22] MEDS: busPIRone HCL 5 MG TABLET PO SCH (09:57)
[2017-07-22] MEDS: BETHANECHOL CHLORIDE 25 MG TABLET PO SCH (09:57)
[2017-07-22] MEDS: CEFTRIAXONE 1 GM in DEXTROSE 5%-WATER - 50 ML IVPB SCH (09:58)
[2017-07-22] MEDS: HEPARIN NA (PORCINE) 5,000 UNITS/ML 1ML VIAL SQ SCH (09:58)
[2017-07-22] MEDS: LITHIUM CARBONATE 450 MG TABLET.ER PO SCH (09:59)
[2017-07-22] MEDS: cloZAPine 100 MG TABLET PO SCH (10:00)
[2017-07-22 13:03] VITALS: BP 134/72; TEMP 98.4
[2017-07-24] MEDS ORDERED: LEVOTHYROXINE NA 75 MCG TABLET (FP) PO SCH (07:00)
== END 2017-07-22 14:31 | disposition home or self-care (01) | DRG 205 ==
LOC: JER 11:23 → JERFT 11:23 → JERBED 16:31 → J6S 19:41 → OBSVTOIN 07-20 12:05
PROVIDERS: ADMIT Internal Medicine; ATTEND Internal Medicine
DX: S22.32XA Fracture of one rib, left side, initial encounter for closed fracture (principal); J18.9 Pneumonia, unspecified organism; G40.802 Other epilepsy, not intractable, without status epilepticus; F20.89 Other schizophrenia; R78.81 Bacteremia; Y92.89 Other specified places as the place of occurrence of the external cause; W10.8XXA Fall (on) (from) other stairs and steps, initial encounter; F70 Mild intellectual disabilities; F32.89 Other specified depressive episodes; I10 Essential (primary) hypertension; E03.9 Hypothyroidism, unspecified; D72.829 Elevated white blood cell count, unspecified
CPT/HCPCS: 36415; 70450-TC; 71020-TC; 71101-TC; 71250-TC; 72125-TC; 72128-TC; 80053; 80178; 83605; 85025; 87040; 93005; 93010; 94010; 99283-25; G0378; J1644

== ENCOUNTER 2017-11-09 10:02 | Day surgery (SDC) | payer OTHER ==
[2017-11-06 13:16] VITALS: BMI 20.5
[2017-11-09 10:37] VITALS: TEMP 97.6
[2017-11-09 10:50] LABS: BASO % 0.3 % (0-2.0); EOS % 1.7 % (0-4.5); HEMATOCRIT 37.6 % (35.4-49); HEMOGLOBIN 12.4 GM/dL (11.7-16.9); LYMPH % 19.7 % (8-40); MCH 32.6 pg (25.7-33.7); MEAN CELL VOLUME 98.8 fl (80-96); MEAN PLT VOLUME 8.3 fl (7.5-11.1); MONO % 5.9 % (3.8-10.2); NEUT % 72.4 % (42.8-82.8); PLATELET COUNT 186 K/MM3 (134-434); RBC 3.81 M/mm3 (4.00-5.60); RDW 13.2 % (11.9-15.9); WHITE BLOOD COUNT 6.9 K/mm3 (4.0-10.0)
[2017-11-09 10:59] LABS: INR 1.01 (0.82-1.09); PROTHROMBIN TIME (PATIENT) 11.4 SEC (9.98-11.88)
[2017-11-09 12:57] VITALS: BP 133/84; PULSE 75
== END 2017-11-09 12:45 | disposition home or self-care (01) ==
LOC: JRADIR 10:02
PROVIDERS: ATTEND Internal Medicine Pulmonary Disease
PROC: BB4BZZZ Ultrasonography of Pleura (ICD-10-PCS; principal; 2017-11-09)
DX: J90 Pleural effusion, not elsewhere classified (principal); Z53.8 Procedure and treatment not carried out for other reasons
CPT/HCPCS: 36415; 76604-TC; 85025; 85610

== ENCOUNTER 2018-07-21 09:14 | Emergency (ER) | payer OTHER ==
[2018-07-21 09:18] VITALS: BP 123/68; PULSE 88; TEMP 97.9; BMI 22.8
--- NOTE | 2018-07-21 10:17 | PDOC ---
History of Present Illness - General Chief Complaint: Injury Stated Complaint: FALL/INJURY Time Seen by Provider: 07/21/18 09:34 History Source: Patient, Legal Guardian(s) Exam Limitations: No Limitations - History of Present Illness Initial Comments: 07/21/18 10:12 Slipped, tripped and fell this morning on extension cord. Patient states he hit his head and left hand. There was no LOC, no bleeding from nose or ears, no behavior changes per guardian Occurred: reports: just prior to arrival Severity: reports: mild Pain Location: reports: face, upper extremity Method of Injury: Yes: fall Modifying Factors: improves with: None Loss of Consciousness: no loss of consciousness Associated Symptoms (Fall): denies symptoms Past History - Travel Traveled outside of the country in the last 30 days: No Close contact w/someone who was outside of country & ill: No - Past Medical History Allergies/Adverse Reactions: Allergies Allergy/AdvReac Type Severity Reaction Status Date / Time chlorpromazine Allergy Intermediate Verified 07/21/18 09:19 [From Thorazine] Home Medications: Ambulatory Orders Buspirone HCl [Buspar -] 30 mg PO BID 10/28/15 Calcium Carbonate/Vitamin D3 [Oystercal-D 500 mg-400 Unit Tb] 1 each PO DAILY Clozapine [Clozaril] 300 mg PO HS 10/28/15 Docusate Sodium [Colace -] 300 mg PO TID 10/28/15 Enalapril Maleate [Vasotec -] 2.5 mg PO DAILY 10/28/15 Ergocalciferol (Vitamin D2) [Vitamin D] 50,000 unit PO MONTHLY 10/28/15 Folic Acid - 1 mg PO DAILY 10/28/15 Lacosamide [Vimpat -] 50 mg PO BID 10/28/15 Levothyroxine [Synthroid -] 15 mcg PO ASDIR 10/28/15 Levothyroxine [Synthroid -] 175 mcg PO ASDIR 10/28/15 [place] Carbonate [Eskalith -] 450 mg PO BID 10/28/15 Multivitamins [Multivit ([facility] Formulary)] 1 tab PO DAILY 10/28/15 Omeprazole [Prilosec (RX)] 20 mg PO DAILY 10/28/15 Sennosides [Senna] 8.6 mg PO BID 10/28/15 Tamsulosin HCl [Flomax -] 0.4 mg PO HS 10/28/15 Clonazepam [Klonopin] 0.5 mg PO TID 11/06/17 Depakote 500 mg PO BID 11/06/17 Desmopressin Acetate [Ddavp] 0.2 mg PO BID 11/06/17 Anemia: No Asthma: No Cancer: No Cardiac Disorders: No CVA: No COPD: No CHF: No DVT: No Dementia: No Diabetes: No GI Disorders: Yes (GERD) Disorders: No HTN: Yes Hypercholesterolemia: No Liver Disease: No Psychiatric Problems: Yes (depression,explosive d/o) Seizures: Yes Thyroid Disease: No - Suicide/Smoking/Psychosocial Hx Smoking History: Never smoked Have you smoked in the past 12 months: No Number of Cigarettes Smoked Daily: 0 Cigars Per Day: 0 Information on smoking cessation initiated: No Hx Alcohol Use: No Drug/Substance Use Hx: No Substance Use Type: None Hx Substance Use Treatment: No *Physical Exam - Vital Signs Last Vital Signs Temp Pulse Resp BP Pulse Ox 97.9 F 88 17 123/68 99 07/21/18 09:17 07/21/18 09:17 07/21/18 09:17 07/21/18 09:17 07/21/18 09:17 - Physical Exam General Appearance: Yes: Nourished, Appropriately Dressed. No: Apparent Distress, Mild Distress HEENT: positive: ROXANA, Normal ENT Inspection (nasal bridge, either orbit, or forehead. No evidence of contusion, abrasion or hematoma.), TMs Normal (no hemotympanum, no drainage from nose or ears, no evidence of skull fracture), Other (no dental injury, has full range of motion of jaw) Neck: positive: Supple. negative: Tender, Tender midline Respiratory/Chest: positive: Chest Tender, Lungs Clear Musculoskeletal: positive: Normal Inspection Extremity: positive: Normal Capillary Refill, Normal Inspection (no tenderness along any extremity, left wrist has a superficial abrasion at wrist joint but has full range of motion to all digits, strong grasp, flexion and extension at wrist and elbow. Neurovascular intact to fingers.), Normal Range of Motion Integumentary: positive: Normal Color, Dry, Warm Neurologic: positive: cashier assistant II-XII NML intact, Fully Oriented, Alert, Normal Mood/ Affect, Normal Response, Motor Strength 5/5 Progress Note - Progress Note Progress Note: Status post fall with no obvious injuries. May treat conservatively and Tylenol as needed. *DC/Admit/Observation/Transfer Diagnosis at time of Disposition: Contusion of face Qualifiers: Encounter type: initial encounter Qualified Code(s): S00.83XA - Contusion of other part of head, initial encounter - Discharge Dispostion Disposition: HOME Condition at time of disposition: Stable Decision to Admit order: No - Referrals Referrals: Car Parr MD [Primary Care Provider] - - Patient Instructions Additional Instructions: Rest, ice to area on and off for 15 minutes 4-6 times a day Avoid heavy lifting or exercise until pain and swelling is resolved or until further directed Followup with private physician in one to 2 days if not improving, May use ibuprofen 2-200 mg tablets every 6 hours as needed for pain - Post Discharge Activity Forms/Work/School Notes: Back to Work
== END 2018-07-21 10:22 | disposition home or self-care (01) ==
LOC: JERFT 09:14
DX: S00.83XA Contusion of other part of head, initial encounter (principal); W18.39XA Other fall on same level, initial encounter; Y93.89 Activity, other specified; Y92.89 Other specified places as the place of occurrence of the external cause; K21.9 Gastro-esophageal reflux disease without esophagitis; I10 Essential (primary) hypertension; F32.9 Major depressive disorder, single episode, unspecified; F63.81 Intermittent explosive disorder
CPT/HCPCS: 99281-25

== ENCOUNTER 2018-11-07 14:55 | Emergency (ER) | payer OTHER ==
[2018-11-07 15:03] VITALS: BP 121/55; PULSE 103; TEMP 99.2; BMI 19.9
[2018-11-07] MEDS ORDERED: SODIUM CHLORIDE 0.9% 500 ML INFUS.BAG IV ONE (16:32)
--- NOTE | 2018-11-07 17:04 | PDOC ---
Attending Attestation - HPI HPI: 11/07/18 19:36 The patient is a 48 year old male, from [facility], with a significant past medical history of intellectual disability, anxiety/depression with psychosis, conduct disorder, urination retention, hypothyroidism, and HTN who presents to the ED today complaining of vomiting and diarrhea since last night. The patient reports a non bilious and non bloody vomiting after eating dinner last night and reports another episode after eating breakfast this morning. Patient also reports loose stool. Denies fever or chills. Denies any other symptoms <Char Whatley - Last Filed: 11/07/18 19:35> - Resident Resident Name: Gisela Mckeon - ED Attending Attestation I have performed the following: I have examined & evaluated the patient, The case was reviewed & discussed with the resident, I agree w/resident's findings & plan, Exceptions are as noted - HPI HPI: 11/07/18 17:03 48 yo male had experienced 2 episodes of vomiting and loose stools. Pt lives at senior living and p/w an attendant - Physicial Exam PE: 11/08/18 02:20 slender 48 yo male has 2 episodes of vomiting head ncat neck supple lungs cta b/l cvs [id number] abd soft,nontender ext no edema neuro axox3,ambulatory skin warm and dry - Medical Decision Making 11/08/18 02:24 pt's symptoms resolved benign abd exam labs reviewed pt was hungry and ate a sandwich, passed po challenge and was discharged <Casi Matthew - Last Filed: 11/08/18 02:27> Attestations - Attestations 11/07/18 19:37 Documentation prepared by Char Whatley, acting as medical case manager for Casi Matthew MD <Char Whatley - Last Filed: 11/07/18 19:35>
--- NOTE | 2018-11-07 17:09 | PDOC ---
History of Present Illness - General Chief Complaint: Nausea/Vomiting Stated Complaint: FEVER - History of Present Illness Initial Comments: Davey Wright is a 48yo man with a H intellectual disability, anxiety/ depression with psychosis, conduct disorder, previous SOB 2/2 severe constipation, urinary retention, hypothyroidism, HTN who presents from [facility] (assisted) with emesis and diarrhea. Per Davey, present with an aide from [facility], he ate a normal breakfast today and vomited after eating. This episode of emesis was witnessed, and the aide confirms that it was NBNB. Davey then reported a second episode of emesis last night after dinner, and he additioally stated that he was having loose stools. Per the aide, Davey has not had any recent travel, change in diet or unusual foods, sick contacts, change in medication, fevers/chills, or other recent illness. He follows up with his PMD and psych regularly, and he has his medication levels checked as indicated. He previously had severe constipation and polyuria, but these have both resolved; he now has regular bowel movements at least daily with his prescribed bowel regimen. He denies any recent constipation, abdominal bloating, or significant pain. He states that he was feeling well prior to yesterday evening. Past History - Past Medical History Allergies/Adverse Reactions: Allergies Allergy/AdvReac Type Severity Reaction Status Date / Time chlorpromazine Allergy Intermediate Verified 11/07/18 15:03 [From Thorazine] Home Medications: Ambulatory Orders Buspirone HCl [Buspar -] 30 mg PO BID 10/28/15 Calcium Carbonate/Vitamin D3 [Oystercal-D 500 mg-400 Unit Tb] 1 each PO DAILY Clozapine [Clozaril] 300 mg PO HS 10/28/15 Docusate Sodium [Colace -] 300 mg PO TID 10/28/15 Enalapril Maleate [Vasotec -] 2.5 mg PO DAILY 10/28/15 Ergocalciferol (Vitamin D2) [Vitamin D] 50,000 unit PO MONTHLY 10/28/15 Folic Acid - 1 mg PO DAILY 10/28/15 Lacosamide [Vimpat -] 50 mg PO BID 10/28/15 Levothyroxine [Synthroid -] 15 mcg PO ASDIR 10/28/15 Levothyroxine [Synthroid -] 175 mcg PO ASDIR 10/28/15 [place] Carbonate [Eskalith -] 450 mg PO BID 10/28/15 Multivitamins [Multivit ([facility] Formulary)] 1 tab PO DAILY 10/28/15 Omeprazole [Prilosec (RX)] 20 mg PO DAILY 10/28/15 Sennosides [Senna] 8.6 mg PO BID 10/28/15 Tamsulosin HCl [Flomax -] 0.4 mg PO HS 10/28/15 Clonazepam [Klonopin] 0.5 mg PO TID 11/06/17 Desmopressin Acetate [Ddavp] 0.2 mg PO BID 11/06/17 Anemia: No Asthma: No Cancer: No Cardiac Disorders: No CVA: No COPD: No CHF: No DVT: No Dementia: No Diabetes: No GI Disorders: Yes (GERD) Disorders: No HTN: Yes Hypercholesterolemia: No Liver Disease: No Psychiatric Problems: Yes (depression,explosive d/o) Seizures: Yes Thyroid Disease: No - Suicide/Smoking/Psychosocial Hx Smoking History: Never smoked Have you smoked in the past 12 months: No Number of Cigarettes Smoked Daily: 0 Cigars Per Day: 0 Hx Alcohol Use: No Drug/Substance Use Hx: No Substance Use Type: None Hx Substance Use Treatment: No Review of Systems - Review of Systems Comments:: General: No fevers, no chills, no weight or appetite change, no malaise HEENT: No changes in vision, no changes in hearing, no congestion, no sore throat CV: No chest pain, no palpitations, no LE edema Pulm: No SOB, no cough, no wheezing GI: +nausea, vomiting, diarrhea : No frequency, no urgency, no dysuria Musc: No back pain, no joint swelling, no recent injury Skin: No rash, no lesions, no erythema Endo: No excessive thirst, no heat/cold intolerance Heme: No unusual bruising or bleeding, no swollen glands Neuro: No syncope, no numbness/tingling, no focal weakness Vasc: No claudication Psych: h/o anxiety, depression, psychosis (per notes) *Physical Exam - Vital Signs Last Vital Signs Temp Pulse Resp BP Pulse Ox 99.2 F 103 H 20 121/55 L 99 11/07/18 15:00 11/07/18 15:00 11/07/18 15:00 11/07/18 15:00 11/07/18 15:00 - Physical Exam Comments: General: Comfortable, no acute distress HEENT: PERRL, EOMI, MMM, voice normal, normal neck ROM, no LAD Cards: RRR, no murmur appreciated Pulm: Comfortable on room air, clear to auscultation bilaterally Abd: Soft, nontender, nondistended, no rigidity or guarding, +BS Ext: Atraumatic. No LE edema. ROM intact. Strength 5/5 and equal bilaterally Vasc: Extremities WWP. Skin: Normal color, no rashes or lesions Neuro: A&Ox3, CN grossly intact, normal speech, motor/sensory grossly intact and symmetric Psych: Mood appropriate to situation Moderate Sedation - Procedure Monitoring Vital Signs: Procedure Monitoring Vital Signs Temperature 99.2 F 11/07/18 15:00 Pulse Rate 103 H 11/07/18 15:00 Respiratory Rate 20 11/07/18 15:00 Blood Pressure 121/55 L 11/07/18 15:00 O2 Sat by Pulse Oximetry (%) 99 11/07/18 15:00 ED Treatment Course - LABORATORY CBC & Chemistry Diagram: 11/07/18 17:00 11/07/18 17:00 Medical Decision Making - Medical Decision Making 11/07/18 17:01 Davey Wright is a 48yo man with a PMH of intellectual disability, anemia, urinary retention, hypothyroidism, SBO (v severe constipation), HTN, anxiety/ depression who presents from his assisted with 2x emesis and report of diarrhea. He was tachycardic on arrival - Nausea, vomiting, diarrhea most likely due to viral gastroenteritis. No known sick contacts, but per aide from facility did not report symptoms until vomiting was witnessed today, possible other residents are ill. No report of travel or diet change. - h/o SBO and constipation, but benign abdominal exam. Reports at least one BM per day. Med list includes doc/senna and miralax, and aide reports that Mr Wright has regular BMs - Less likely bacterial in nature as pt has no report of eating raw or undercooked foods, no known sick contacts, unlikely to have exposure - No abdominal tenderness suggesting appendicitis, cholecystitis, or other acute surgical pathology - CBC, CMP, mag, phos, UA, urine culture for evaluation - 1L NS bolus for likly dehydration given tachycardia in the setting of vomiting and diarrhea - Could potentially be medication induced as pt takes multiple psych meds, synthroid. However, per notes from PMD has levels checked regularly and has not had a dosage change recently 11/07/18 18:29 - Labs reviewed. No concerning abnormalities - No additional episodes of vomiting. Denies nausea currently, feels hungry. - Need to send UA for for eval, but will likely d/c home. 11/07/18 18:57 - Requesting dinner. Will PO challenge as pt states he is hungry and feels much better. 11/07/18 19:19 - Tolerated turkey sandwich and apple juice without issues. Continues to deny nausea - HR checked at bedside manually; approximately 85-90/min after bolus - Discussed home care and return precautions with Mr Wright's aide. She states understanding. Discussed with Dr Matthew. Gisela Mckeon PGY1 *DC/Admit/Observation/Transfer Diagnosis at time of Disposition: Vomiting and diarrhea - Discharge Dispostion Condition at time of disposition: Stable - Referrals - Patient Instructions Printed Discharge Instructions: DI for Diarrhea and Traveler's Diarrhea -- Adult, DI for Vomiting -- Adult Additional Instructions: Discharge Instructions: - You were seen in the emergency department for nausea, vomiting, and diarrhea. - You had IV fluids for dehydration - You had blood tests to check your blood counts, electrolytes, kidney function , and liver function. These were all normal - At home, continue to encourage fluid intake. Make sure you are drinking plenty of water, clear juices, sports drinks, or other clear liquids even if you cannot eat. Avoid acidic foods, spicy foods, and dairy products until you are feeling better. When you feel ready to eat, start with easy to digest foods such as bread or rice. - Make an appointment to follow up with your primary doctor if your symptoms continue for more than a week. - Seek immediate medical care if you have severe nausea/vomiting that prevents you from eating, you cannot tolerate liquids, you have fever to 101F or higher, you have blood in your vomit or the vomit becomes green, or you have any medical emergency including chest pain or shortness of breath. - Post Discharge Activity
[2018-11-07 17:32] LABS: BASO % 0.2 % (0-2.0); EOS % 0.5 % (0-4.5); HEMOGLOBIN 12.8 GM/dL (11.7-16.9); LYMPH % 3.6 % (8-40); MCH 34.6 pg (25.7-33.7); MCHC 34.6 g/dl (32.0-35.9); MEAN CELL VOLUME 100.1 fl (80-96); MEAN PLT VOLUME 8.4 fl (7.5-11.1); MONO % 4.9 % (3.8-10.2); NEUT % 90.8 % (42.8-82.8); PLATELET COUNT 156 K/MM3 (134-434); RBC 3.69 M/mm3 (4.00-5.60); RDW 13.7 % (11.9-15.9); WHITE BLOOD COUNT 8.8 K/mm3 (4.0-10.0)
[2018-11-07 18:07] LABS: ALBUMIN 3.5 g/dl (3.4-5.0); ALK PHOS 57 U/L (45-117); ANION GAP 8 MMOL/L (8-16); BILIRUBIN,TOTAL 0.5 mg/dL (0.2-1); BLOOD UREA NITROGEN 19 mg/dL (7-18); CALCIUM 8.6 mg/dL (8.5-10.1); CHLORIDE 103 mmol/L (98-107); CO2 25 mmol/L (21-32); CREATININE 1.1 mg/dL (0.55-1.3); GLUCOSE,RANDOM 92 mg/dL (74-106); PHOSPHOROUS 3.5 mg/dL (2.5-4.9); SGPT/ALT 15 U/L (13-61); SODIUM 136 mmol/L (136-145); TOT PROT 7.1 g/dl (6.4-8.2)
[2018-11-07 18:08] LABS: POTASSIUM 4.3 mmol/L (3.5-5.1); SGOT/AST 14 U/L (15-37)
[2018-11-07 18:47] LABS: URINE APPEARANCE CLEAR; URINE BILIRUBIN NEGATIVE (<2.0 mg/dL); URINE COLOR LTYELLOW; URINE GLUCOSE (UA) NEGATIVE (NEGATIVE); URINE KETONE TRACE (NEGATIVE); URINE LEUK ESTERASE NEGATIVE (NEGATIVE); URINE NITRITE NEGATIVE (NEGATIVE); URINE PROTEIN NEGATIVE (NEGATIVE); URINE UROBILINOGEN NEGATIVE mg/dL (0.2-1.0)
== END 2018-11-07 19:48 | disposition home or self-care (01) ==
LOC: JER 14:55
DX: R11.2 Nausea with vomiting, unspecified (principal); R19.7 Diarrhea, unspecified; I10 Essential (primary) hypertension; F91.8 Other conduct disorders; F79 Unspecified intellectual disabilities; F41.8 Other specified anxiety disorders; F32.3 Major depressive disorder, single episode, severe with psychotic features; E03.9 Hypothyroidism, unspecified; Z87.19 Personal history of other diseases of the digestive system
CPT/HCPCS: 36415; 80053; 81003; 83735; 84100; 85025; 99283-25

== ENCOUNTER 2018-12-07 07:28 | Emergency (ER) | payer OTHER ==
[2018-12-07 07:55] VITALS: BP 111/68; PULSE 96; TEMP 98.7; BMI 25.0
--- NOTE | 2018-12-07 08:36 | PDOC ---
History of Present Illness - General History Source: Patient, Other ([facility] staff) - History of Present Illness Associated Symptoms: denies: headaches, nausea/vomiting <Debora Gomez - Last Filed: 12/07/18 09:33> <Aishwarya Loza - Last Filed: 12/07/18 12:42> - General Chief Complaint: Head/Neck problem Stated Complaint: HEAD LAC S/P FALL Time Seen by Provider: 12/07/18 08:27 Past History - Past Medical History Anemia: No Asthma: No Cancer: No Cardiac Disorders: No CVA: No COPD: No CHF: No DVT: No Dementia: No Diabetes: No GI Disorders: Yes (GERD) Disorders: No HTN: Yes Hypercholesterolemia: No Liver Disease: No Psychiatric Problems: Yes (depression,explosive d/o) Seizures: Yes Thyroid Disease: No - Suicide/Smoking/Psychosocial Hx Smoking History: Never smoked Have you smoked in the past 12 months: No Number of Cigarettes Smoked Daily: 0 Cigars Per Day: 0 Hx Alcohol Use: No Drug/Substance Use Hx: No Substance Use Type: None Hx Substance Use Treatment: No <Debora Gomez - Last Filed: 12/07/18 09:33> <Aishwarya Loza - Last Filed: 12/07/18 12:42> - Past Medical History Allergies/Adverse Reactions: Allergies Allergy/AdvReac Type Severity Reaction Status Date / Time chlorpromazine Allergy Intermediate Verified 12/07/18 07:50 [From Thorazine] Home Medications: Ambulatory Orders Buspirone HCl [Buspar -] 30 mg PO BID 10/28/15 Calcium Carbonate/Vitamin D3 [Oystercal-D 500 mg-400 Unit Tb] 1 each PO DAILY Clozapine [Clozaril] 300 mg PO HS 10/28/15 Docusate Sodium [Colace -] 300 mg PO TID 10/28/15 Enalapril Maleate [Vasotec -] 2.5 mg PO DAILY 10/28/15 Ergocalciferol (Vitamin D2) [Vitamin D] 50,000 unit PO MONTHLY 10/28/15 Folic Acid - 1 mg PO DAILY 10/28/15 Lacosamide [Vimpat -] 50 mg PO BID 10/28/15 Levothyroxine [Synthroid -] 15 mcg PO ASDIR 10/28/15 Levothyroxine [Synthroid -] 175 mcg PO ASDIR 10/28/15 [place] Carbonate [Eskalith -] 450 mg PO BID 10/28/15 Multivitamins [Multivit ([facility] Formulary)] 1 tab PO DAILY 10/28/15 Omeprazole [Prilosec (RX)] 20 mg PO DAILY 10/28/15 Sennosides [Senna] 8.6 mg PO BID 10/28/15 Tamsulosin HCl [Flomax -] 0.4 mg PO HS 10/28/15 Clonazepam [Klonopin] 0.5 mg PO TID 11/06/17 Desmopressin Acetate [Ddavp] 0.2 mg PO BID 11/06/17 Review of Systems - Review of Systems Respiratory: No: Shortness of Breath Cardiac (ROS): No: Chest Pain ABD/GI: No: Nausea, Vomiting Neurological: No: Headache, Dizziness <Debora Gomez - Last Filed: 12/07/18 09:33> *Physical Exam - Vital Signs Last Vital Signs Temp Pulse Resp BP Pulse Ox 98.7 F 96 H 16 111/68 99 12/07/18 07:52 12/07/18 07:52 12/07/18 07:52 12/07/18 07:52 12/07/18 07:52 - Physical Exam General Appearance: Yes: Appropriately Dressed. No: Apparent Distress HEENT: positive: Normal Voice, Other (minor facial abrasiosn to R forehead and nasal bridge, no facial swelling/deformity, ~1cm superficial lac to R parietal area) Respiratory/Chest: positive: Lungs Clear, Normal Breath Sounds. negative: Respiratory Distress Cardiovascular: positive: Regular Rate, S1, S2 Integumentary: positive: Dry, Warm Neurologic: positive: Alert, Normal Mood/Affect, Motor Strength 5/5 <Debora Gomez - Last Filed: 12/07/18 09:33> - Vital Signs Last Vital Signs Temp Pulse Resp BP Pulse Ox 98.7 F 96 H 16 111/68 99 12/07/18 07:52 12/07/18 07:52 12/07/18 07:52 12/07/18 07:52 12/07/18 07:52 <Aishwarya Loza - Last Filed: 12/07/18 12:42> Moderate Sedation - Procedure Monitoring Vital Signs: Procedure Monitoring Vital Signs Temperature 98.7 F 12/07/18 07:52 Pulse Rate 96 H 12/07/18 07:52 Respiratory Rate 16 12/07/18 07:52 Blood Pressure 111/68 12/07/18 07:52 O2 Sat by Pulse Oximetry (%) 99 12/07/18 07:52 <Debora Gomez - Last Filed: 12/07/18 09:33> - Procedure Monitoring Vital Signs: Procedure Monitoring Vital Signs Temperature 98.7 F 12/07/18 07:52 Pulse Rate 96 H 12/07/18 07:52 Respiratory Rate 16 12/07/18 07:52 Blood Pressure 111/68 12/07/18 07:52 O2 Sat by Pulse Oximetry (%) 99 12/07/18 07:52 <Aishwarya Loza - Last Filed: 12/07/18 12:42> Procedures - Laceration/Wound Repair Right Head Wound Length: to 2.5 cm Wound Explored: clean Wound's Depth, Shape: superficial Irrigated w/ Saline: Yes Betadine Prep: Yes Wound Repaired With: Tiesha (5) Progress: 12/07/18 08:44 bacitracin applied <Debora Gomez - Last Filed: 12/07/18 09:33> ED Treatment Course - Medications Given in the ED: ED Medications Discontinued Medications Generic Name Dose Route Start Last Admin Trade Name Freq PRN Reason Stop Dose Admin Diphtheria/Tetanus/Acell Pertussis 0.5 ml 12/07/18 08:38 12/07/18 08:51 Boostrix - IM 12/07/18 08:39 0.5 ml .ONCE ONE Administration <Aishwarya Loza - Last Filed: 12/07/18 12:42> Medical Decision Making - Medical Decision Making 12/07/18 08:28 48-year-old male, resident of [facility] with history of schizoaffective d/o, depression, seizures, hypothyroid and HTN, brought in by [facility] staff for unwitnessed head injury. Per staff member, took care of patient overnight and that last night pt had no obvious injuries, but that this a.m. when he saw patient, pt had multiple facial and head injuries. States patient told him he tripped and fell in his room last night but unsure if he struck head against the furniture or the ground. Patient is able to give history here and denies any LOC. Reports no headache, nausea, vomiting, visual changes or focal weakness at this time. Denies chest pain or dizziness prior to fall. Pt also denies seizure and per [facility] staff, pt's seizures has been well controlled on meds and that pt has not had a seizure in years. Per staff member, pt is baseline otherwise w/ no AMS See exam Head injury s/p suspected mechanical fall Not on blood thinners Stable and in NAD, w/ exam only remarkable for minor facial abrasions and scalp lac -tetanus -lac repair -CTH -anticipate dc back to [facility] 12/07/18 09:36 CTH read as neg for acute pathology. Pt has since been given tetanus and had scalp lac repaired w/ tiesha. Pt remains stable and alert here. Will dc w/ wound check as needed in 2 days <Debora Gomez - Last Filed: 12/07/18 09:33> *DC/Admit/Observation/Transfer <Debora Gomez - Last Filed: 12/07/18 09:33> - Attestations Physician Attestion: I reviewed the case with the mid-level practitioner and agree with the mid- level practitioner's assessment, diagnosis and disposition. <Aishwarya Loza - Last Filed: 12/07/18 12:42> Diagnosis at time of Disposition: Head injury Qualifiers: Encounter type: initial encounter Qualified Code(s): S09.90XA - Unspecified injury of head, initial encounter Laceration of scalp Qualifiers: Encounter type: initial encounter Qualified Code(s): S01.01XA - Laceration without foreign body of scalp, initial encounter - Discharge Dispostion Disposition: HOME - Referrals Referrals: Rios Rendon MD [Primary Care Provider] - - Patient Instructions Printed Discharge Instructions: Laceration Repair, DI for Closed Head Injury Additional Instructions: Patient was seen here for head and facial injuries. His head CT was negative. He was given tetanus vaccine We placed 5 tiesha in patient's scalp. Return for nay signs of infection such as redness, pus or fever Otherwise, patient needs to return to ED in 7-14 days for removal of tiesha In the meantime, keep wound dry for 2 days. After that you can let water run over wound You can apply bacitracin ointment (this is over the counter) once a day to laceration until patient returns for removal of tiesha. Facial abrasions are minor and should heal on their own. Pt can resume all usual activities - Post Discharge Activity
[2018-12-07] MEDS ORDERED: DIPHTH,PERTUSS(ACELL),TET 0.5 ML DISP.SYRIN IM ONE ×2 (08:38→08:47)
== END 2018-12-07 10:28 | disposition home or self-care (01) ==
LOC: JER 07:28
PROC: 3E0234Z Introduction of Serum, Toxoid and Vaccine into Muscle, Percutaneous Approach (ICD-10-PCS; principal; 2018-12-07)
PROC: 0HQ0XZZ Repair Scalp Skin, External Approach (ICD-10-PCS; 2018-12-07)
DX: S01.01XA Laceration without foreign body of scalp, initial encounter (principal); S00.31XA Abrasion of nose, initial encounter; S00.81XA Abrasion of other part of head, initial encounter; W18.39XA Other fall on same level, initial encounter; Y93.89 Activity, other specified; Y92.098 Other place in other non-institutional residence as the place of occurrence of the external cause; Y99.8 Other external cause status; I10 Essential (primary) hypertension; E03.9 Hypothyroidism, unspecified; G40.909 Epilepsy, unspecified, not intractable, without status epilepticus; F25.9 Schizoaffective disorder, unspecified; F32.9 Major depressive disorder, single episode, unspecified
CPT/HCPCS: 12001; 70450-TC; 90471; 90715; 99281-25

== ENCOUNTER 2018-12-10 01:44 | Inpatient (IN) | payer OTHER ==
--- NOTE | 2018-12-10 01:57 | PDOC ---
History of Present Illness - General Chief Complaint: SIRS, Suspected/Possible Stated Complaint: FEVER Time Seen by Provider: 12/10/18 01:57 History Source: Patient, Care Provider, EMS, [facility] Records Exam Limitations: Clinical Condition - History of Present Illness Initial Comments: 48 yo M w a hx of intellectual disability, anxiety/depression with psychosis, conduct disorder, previous SOB 2/2 severe constipation, urinary retention, hypothyroidism, HTN presents from [facility] (skilled nursing) [facility] with fevers up to 102. The aid who is with him at bedside states that he found him in bed shaking noticed he had a fever and then brought him into the ER. The patient is not able to contribute much to the history secondary to his mental condition. PCP: Rios Rendon Hx: From [facility]. Denies smoking, drinking, or other substance usage. Allergies: Chlorpromazine Past History - Past Medical History Allergies/Adverse Reactions: Allergies Allergy/AdvReac Type Severity Reaction Status Date / Time chlorpromazine Allergy Intermediate Verified 12/10/18 02:05 [From Thorazine] Home Medications: Ambulatory Orders Buspirone HCl [Buspar -] 30 mg PO BID 10/28/15 Calcium Carbonate/Vitamin D3 [Oystercal-D 500 mg-400 Unit Tb] 1 each PO DAILY Clozapine [Clozaril] 300 mg PO HS 10/28/15 Docusate Sodium [Colace -] 300 mg PO TID 10/28/15 Enalapril Maleate [Vasotec -] 2.5 mg PO DAILY 10/28/15 Ergocalciferol (Vitamin D2) [Vitamin D] 50,000 unit PO MONTHLY 10/28/15 Folic Acid - 1 mg PO DAILY 10/28/15 Lacosamide [Vimpat -] 50 mg PO BID 10/28/15 Levothyroxine [Synthroid -] 15 mcg PO ASDIR 10/28/15 Levothyroxine [Synthroid -] 175 mcg PO ASDIR 10/28/15 [place] Carbonate [Eskalith -] 450 mg PO BID 10/28/15 Multivitamins [Multivit ([facility] Formulary)] 1 tab PO DAILY 10/28/15 Omeprazole [Prilosec (RX)] 20 mg PO DAILY 10/28/15 Sennosides [Senna] 8.6 mg PO BID 10/28/15 Tamsulosin HCl [Flomax -] 0.4 mg PO HS 10/28/15 Clonazepam [Klonopin] 0.5 mg PO TID 11/06/17 Desmopressin Acetate [Ddavp] 0.2 mg PO BID 11/06/17 Anemia: No Asthma: No Cancer: No Cardiac Disorders: No CVA: No COPD: No CHF: No DVT: No Dementia: No Diabetes: No GI Disorders: Yes (GERD) Disorders: No HTN: Yes Hypercholesterolemia: No Liver Disease: No Psychiatric Problems: Yes (depression,explosive d/o) Seizures: Yes Thyroid Disease: No - Suicide/Smoking/Psychosocial Hx Smoking History: Never smoked Have you smoked in the past 12 months: No Number of Cigarettes Smoked Daily: 0 Cigars Per Day: 0 Hx Alcohol Use: No Drug/Substance Use Hx: No Substance Use Type: None Hx Substance Use Treatment: No Review of Systems - Review of Systems Able to Perform ROS?: No (Dementia) *Physical Exam - Physical Exam Comments: GENERAL: Repeatedly saying he is hungry. Well-appearing, well-nourished. No apparent distress. HEENT: Normocephalic, atraumatic. PERRL, EOM intact. CARDIOVASCULAR: Normal S1, S2. Tachycardic rate and regular rhythm. PULMONARY: No evidence of respiratory distress. Lungs clear to auscultation bilaterally. No wheezing, rales or rhonchi. ABDOMEN: Soft, non-distended, non-tender. EXTREMITIES: Normal ROM in all four extremities. No gross deformities. SKIN: Warm, dry. No rash NEUROLOGICAL: No focal neurological deficits. ED Treatment Course - LABORATORY CBC & Chemistry Diagram: 12/10/18 02:41 12/10/18 02:41 Medical Decision Making - Medical Decision Making 48 yo M w a hx of intellectual disability, anxiety/depression with psychosis, conduct disorder, previous SOB 2/2 severe constipation, urinary retention, hypothyroidism, HTN presents from [facility] (skilled nursing) [facility] with fevers up to 102. The aid who is with him at bedside states that he found him in bed shaking noticed he had a fever and then brought him into the ER. The patient is not able to contribute much to the history secondary to his mental condition. VS: Febrile, tachycardic DDx IBNLT: Influenza, Sepsis, pna, gastroenteritis, UTI, other infection. Plan: ED adult sepsis workup - labs, urine, ekg, cxr, IV hydration, offirmev, re -assess. CXR shows a suspicious lesion in the right upper lobe - Will obtain a CT chest CT chest shows a cavitary lesion suspicious for pna vs cancer. - Will antibiose in ed, place in isolation, and admit for PNA and to have cancer ruled out. *DC/Admit/Observation/Transfer Diagnosis at time of Disposition: PNA (pneumonia) - Discharge Dispostion Condition at time of disposition: Stable Decision to Admit order: Yes - Referrals - Patient Instructions - Post Discharge Activity
[2018-12-10] MEDS ORDERED: SODIUM CHLORIDE 2,449 ML IV ONE (02:35)
[2018-12-10] MEDS ORDERED: ACETAMINOPHEN 1000 MG/100 ML VIAL (NON FORMULARY) IVPB ONE (02:37)
[2018-12-10] MEDS ORDERED: ACETAMINOPHEN INJECTION 100 ML IVPB ONE (02:45)
[2018-12-10 03:31] LABS: BASO % 0.2 % (0-2.0); EOS % 0.9 % (0-4.5); HEMATOCRIT 30.5 % (35.4-49); LYMPH % 10.2 % (8-40); MCH 35.5 pg (25.7-33.7); MEAN CELL VOLUME 98.6 fl (80-96); MEAN PLT VOLUME 8.5 fl (7.5-11.1); NEUT % 78.7 % (42.8-82.8); PLATELET COUNT 246 K/MM3 (134-434); RDW 13.4 % (11.9-15.9); WHITE BLOOD COUNT 9.9 K/mm3 (4.0-10.0)
[2018-12-10 03:43] LABS: INR 1.21 (0.83-1.09); PROTHROMBIN TIME (PATIENT) 14.3 SEC (9.7-13.0)
[2018-12-10 03:45] LABS: ACTIVATED PTT 33.9 SECONDS (25.2-36.5)
--- NOTE | 2018-12-10 03:59 | PDOC ---
Attending Attestation - Resident Resident Name: Davion Moreland - ED Attending Attestation I have performed the following: I have examined & evaluated the patient, The case was reviewed & discussed with the resident, I agree w/resident's findings & plan, Exceptions are as noted - HPI HPI: 12/10/18 03:57 48-year-old male with past medical history of GERD, hypertension, depression, seizure disorder, mental retardation, psychosis, conduct disorder, thyroid disorder presents from [facility] for fever. The patient's caretakers at the bedside noted that he was having chills. They noted a temperature of approximately 101. Patient himself does not specify any specific complaints. - Physicial Exam PE: 12/10/18 03:57 GENERAL: Awake, alert, and fully oriented, in no acute distress. Warm to touch. HEAD: No signs of trauma EYES: EOMI, sclera anicteric, conjunctiva clear ENT: Auricles normal inspection, hearing grossly normal, nares patent, NECK: Normal ROM, supple, LUNGS: Breath sounds equal, clear to auscultation bilaterally. No wheezes, and no crackles HEART: Regular rate and rhythm, normal S1 and S2, no murmurs, rubs or gallops ABDOMEN: Soft, nontender, No guarding, no rebound. No masses EXTREMITIES: Normal range of motion, no edema. No clubbing or cyanosis. No cords, erythema, or tenderness NEUROLOGICAL: Cranial nerves II through XII grossly intact. Normal speech SKIN: Warm, Dry, normal turgor, no rashes or lesions noted. - Medical Decision Making 12/10/18 03:58 Vital Signs Temp Pulse Resp BP Pulse Ox 100.9 F H 103 H 18 111/76 97 12/10/18 02:02 12/10/18 02:02 12/10/18 02:02 12/10/18 02:02 12/10/18 02:02 48 year old male with history of MR presents with fever. Will need to investigate including chest xray, labs, UA/UC, blood cultures. Tylenol for the fever. Reassess. Otherwise, nontoxic appearing. 12/10/18 05:35 CBC, BMP 12/10/18 02:41 12/10/18 02:41 CMP Sodium 135 mmol/L (136-145) L 12/10/18 02:41 Potassium 4.7 mmol/L (3.5-5.1) 12/10/18 02:41 Chloride 103 mmol/L (98-107) 12/10/18 02:41 Carbon Dioxide 27 mmol/L (21-32) 12/10/18 02:41 Anion Gap 5 MMOL/L (8-16) L 12/10/18 02:41 BUN 13 mg/dL (7-18) 12/10/18 02:41 Creatinine 1.0 mg/dL (0.55-1.3) 12/10/18 02:41 Creat Clearance w eGFR > 60 (>60) 12/10/18 02:41 Random Glucose 113 mg/dL (74-106) H 12/10/18 02:41 Calcium 8.8 mg/dL (8.5-10.1) 12/10/18 02:41 Total Bilirubin 0.2 mg/dL (0.2-1) 12/10/18 02:41 AST 12 U/L (15-37) L 12/10/18 02:41 ALT 13 U/L (13-61) 12/10/18 02:41 Alkaline Phosphatase 53 U/L (45-117) 12/10/18 02:41 Creatine Kinase 34 U/L (26-308) 12/10/18 02:41 CK-MB (CK-2) < 1.0 ng/mL (0.5-3.6) 12/10/18 02:41 Troponin I < 0.02 ng/ml (0.00-0.05) 12/10/18 02:41 Total Protein 6.7 g/dl (6.4-8.2) 12/10/18 02:41 Albumin 2.7 g/dl (3.4-5.0) L 12/10/18 02:41 Chest xray reviewed by me, pending official radiology read. Appears to have a new coin lesion on right upper chest. Will obtain a chest CT to further evaluate for potential malignancy. UA pending. 12/10/18 05:58 CT chest reviewed by me, pending official radiology read. Large ?cavitary? lesion in right upper lobe. Could this be cancer? Could this be TB? Will initiate vanc and zosyn. Will isolate patient on TB precautions. Admit. 12/10/18 06:08 Phone numbers: TERE ([employer] [employer]): [phone] Nurse Suzan: [phone] Heart Score/ECG Review #1 ECG reviewed & interpreted by me at: 03:00 12/10/18 03:59 NSR 99, no std/claudette, normal axis, normal intervals, QTC 420 msec
[2018-12-10 04:00] LABS: ALBUMIN 2.7 g/dl (3.4-5.0); ALK PHOS 53 U/L (45-117); ANION GAP 5 MMOL/L (8-16); BILIRUBIN,TOTAL 0.2 mg/dL (0.2-1); BLOOD UREA NITROGEN 13 mg/dL (7-18); CALCIUM 8.8 mg/dL (8.5-10.1); CHLORIDE 103 mmol/L (98-107); CO2 27 mmol/L (21-32); GLUCOSE,RANDOM 113 mg/dL (74-106); POTASSIUM 4.7 mmol/L (3.5-5.1); SGOT/AST 12 U/L (15-37); SGPT/ALT 13 U/L (13-61); SODIUM 135 mmol/L (136-145); TOT PROT 6.7 g/dl (6.4-8.2)
[2018-12-10] MEDS ORDERED: VANCOMYCIN 1,000 MG in DEXTROSE 5%-WATER - 250 ML IVPB ONE (05:55)
[2018-12-10] MEDS ORDERED: PIPERACILLIN/TAZOB 3.375 GM 3.375 GM in DEXTROSE 5%-WATER - 50 ML IVPB ONE (05:56)
[2018-12-10] MEDS ORDERED: PIPERACILLIN/TAZOB 3.375 GM 3.375 GM/50 ML BAG IVPB ONE (05:58)
[2018-12-10] MEDS ORDERED: VANCOMYCIN 1 GRAM (PRE-DOCKED) 1,000 MG/250 ML BAG IVPB ONE (06:10)
--- NOTE | 2018-12-10 11:32 | EKG ---
Test Reason : Blood Pressure : / mmHG Vent. Rate : 099 BPM Atrial Rate : 099 BPM P-R Int : 156 ms QRS Dur : 094 ms QT Int : 328 ms P-R-T Axes : 070 006 033 degrees QTc Int : 420 ms NORMAL SINUS RHYTHM NORMAL ECG WHEN COMPARED WITH ECG OF 18-JUL-2017 13:25, NO SIGNIFICANT CHANGE WAS FOUND Confirmed by JOVANY RIZVI MD ([id number]) on 12/10/2018 11:31:52 AM Referred By: GERONIMO Confirmed By:JOVANY RIZVI MD
[2018-12-10] MEDS ORDERED: ACETAMINOPHEN 325 MG TABLET (FP) PO PRN (13:10)
--- NOTE | 2018-12-10 13:18 | HP ---
Admitting History and Physical - Primary Care Physician PCP: Rios Rendon - Admission History of Present Illness: Pt well known to me In summary/ Per ER notes 48 yo M w a hx of intellectual disability, anxiety/depression with psychosis, conduct disorder, previous SOB 2/2 severe constipation, urinary retention, hypothyroidism, HTN presents from [facility] ([facility] with fevers up to 102. The aid who is with him at bedside states that he found him in bed shaking noticed he had a fever and then brought him into the ER. The patient is not able to contribute much to the history secondary to his mental condition. ct chest showed lung mass-- Pneumonia vs malignancy pt given abx admitted to floor kept in isolation - concern about TB pt still in er . Seen / examined awake/ comfortable mood calm denies pain denies cough denies abd pain denies headache History Source: Medical Record Limitations to Obtaining History: Clinical Condition, Poor Historian - Smoking History Smoking history: Never smoked Have you smoked in the past 12 months: No Aproximately how many cigarettes per day: 0 - Alcohol/Substance Use Hx Alcohol Use: No Home Medications - Allergies Allergies/Adverse Reactions: Allergies Allergy/AdvReac Type Severity Reaction Status Date / Time chlorpromazine Allergy Intermediate Verified 12/10/18 02:05 [From Thorazine] - Home Medications Home Medications: Ambulatory Orders Buspirone HCl [Buspar -] 30 mg PO BID 10/28/15 Calcium Carbonate/Vitamin D3 [Oystercal-D 500 mg-400 Unit Tb] 1 each PO DAILY Clozapine [Clozaril] 300 mg PO HS 10/28/15 Docusate Sodium [Colace -] 300 mg PO TID 10/28/15 Enalapril Maleate [Vasotec -] 2.5 mg PO DAILY 10/28/15 Ergocalciferol (Vitamin D2) [Vitamin D] 50,000 unit PO MONTHLY 10/28/15 Folic Acid - 1 mg PO DAILY 10/28/15 Lacosamide [Vimpat -] 50 mg PO BID 10/28/15 Levothyroxine [Synthroid -] 15 mcg PO ASDIR 10/28/15 Levothyroxine [Synthroid -] 175 mcg PO ASDIR 10/28/15 [place] Carbonate [Eskalith -] 450 mg PO BID 10/28/15 Multivitamins [Multivit ([facility] Formulary)] 1 tab PO DAILY 10/28/15 Omeprazole [Prilosec (RX)] 20 mg PO DAILY 10/28/15 Sennosides [Senna] 8.6 mg PO BID 10/28/15 Tamsulosin HCl [Flomax -] 0.4 mg PO HS 10/28/15 Clonazepam [Klonopin] 0.5 mg PO TID 11/06/17 Desmopressin Acetate [Ddavp] 0.2 mg PO BID 11/06/17 Review of Systems Findings/Remarks: see [facility] Physical Examination Vital Signs: Vital Signs Temperature 99.8 F H 12/10/18 11:29 Pulse Rate 86 12/10/18 05:41 Respiratory Rate 18 12/10/18 05:41 Blood Pressure 101/55 L 12/10/18 05:41 O2 Sat by Pulse Oximetry (%) 98 12/10/18 05:41 Constitutional: Yes: No Distress, Calm Eyes: Yes: Conjunctiva Clear HENT: Yes: Other (marah + -- scalp) Neck: Yes: Supple Cardiovascular: Yes: Regular Rate and Rhythm Respiratory: Yes: CTA Bilaterally Gastrointestinal: Yes: Soft Edema: No Neurological: Yes: Alert Psychiatric: Yes: Alert Labs: CBC, BMP 12/10/18 02:41 12/10/18 02:41 Imaging - Results Chest X-ray: Report Reviewed Cat Scan: Report Reviewed EKG: Report Reviewed Problem List - Problems (1) Lung mass Code(s): R91.8 - OTHER NONSPECIFIC ABNORMAL FINDING OF LUNG FIELD (2) Psychiatric disorder Code(s): F99 - MENTAL DISORDER, NOT OTHERWISE SPECIFIED (3) Pneumonia Code(s): J18.9 - PNEUMONIA, UNSPECIFIED ORGANISM (4) Hypertension Code(s): I10 - ESSENTIAL (PRIMARY) HYPERTENSION (5) Hypothyroidism Code(s): E03.9 - HYPOTHYROIDISM, UNSPECIFIED (6) Mental retardation Code(s): F79 - UNSPECIFIED INTELLECTUAL DISABILITIES Assessment/Plan Clinically stable Abx per i/d got zosyn pulmonary consult had lung mass 07/05-- which was cleared in f/u ct chest continue psych meds check lithium level dvt prophylaxis discussed with nursing staff also pt also had recent fall-- marah in Head 12/07 in er -- site claen -- to be removed in 5-7 days will follow
[2018-12-10] MEDS ORDERED: DOCUSATE SODIUM 100 MG CAPSULE (FP) PO ONE (14:21)
[2018-12-10] MEDS ORDERED: clonazePAM 0.5 MG TABLET ONE (14:21)
[2018-12-10] MEDS: DOCUSATE SODIUM 100 MG CAPSULE (FP) PO SCH ×2 (14:27→21:17)
[2018-12-10] MEDS: clonazePAM 0.5 MG TABLET PO SCH ×3 (14:27→21:17)
--- NOTE | 2018-12-10 17:24 | PN ---
Progress Note (short form) - Note Progress Note: ID CONSULT DICTATED RUL ROUND PNEUMONIA WITH CAVITATION ? NECROTIZING PNEUMONIA ? AFB DISEASE ? CAVITARY NEOPLASM ISOLATE SPUTUM AFB BC/SPUTUM C/S/ LEGIONELLA/PNEUMOCOCCAL AG QUANTIFERON HIV TEST EMPRIC ZOSYN
[2018-12-10] MEDS ORDERED: DEXTROSE 5%-WATER - 50 ML IVPB ONE (17:45)
[2018-12-10] MEDS ORDERED: PIPERACILLIN/TAZOBACTAM 3.375 GM VIAL IVPB ONE (17:45)
[2018-12-10] MEDS: PIPERACILLIN/TAZOB 3.375 GM 3.375 GM in DEXTROSE 5%-WATER - 50 ML IVPB SCH (17:56)
[2018-12-10 18:18] VITALS: BMI 21.9
[2018-12-10] MEDS: LITHIUM CARBONATE 450 MG TABLET.ER PO SCH (21:16)
[2018-12-10] MEDS: LACOSAMIDE 50 MG TABLET PO SCH (21:17)
[2018-12-10] MEDS: SENNOSIDES 8.6MG TABLET (FP) PO SCH (21:17)
[2018-12-10] MEDS: busPIRone HCL 10 MG TABLET (FP) PO SCH (21:17)
[2018-12-10] MEDS: cloZAPine 100 MG TABLET PO SCH (21:17)
[2018-12-10] MEDS: DESMOPRESSIN ACETATE 0.2 MG TABLET PO SCH (21:18)
[2018-12-11] MEDS ORDERED: PIPERACILLIN/TAZOBACTAM 3.375 GM VIAL IVPB ONE ×3 (00:21→16:49)
[2018-12-11] MEDS ORDERED: DEXTROSE 5%-WATER - 50 ML IVPB ONE ×3 (00:22→16:49)
[2018-12-11] MEDS: PIPERACILLIN/TAZOB 3.375 GM 3.375 GM in DEXTROSE 5%-WATER - 50 ML IVPB SCH ×3 (01:14→17:31)
[2018-12-11] MEDS ORDERED: LEVOTHYROXINE NA 25 MCG TABLET (FP) ONE ×2 (05:23→06:02)
[2018-12-11] MEDS ORDERED: LEVOTHYROXINE NA 100 MCG TABLET (FP) ONE ×2 (05:23→06:02)
[2018-12-11] MEDS: clonazePAM 0.5 MG TABLET PO SCH ×3 (06:01→21:28)
[2018-12-11] MEDS: LEVOTHYROXINE 100 MCG, LEVOTHYROXINE 75 MCG PO SCH (06:01)
[2018-12-11] MEDS: DOCUSATE SODIUM 100 MG CAPSULE (FP) PO SCH ×3 (06:01→21:29)
[2018-12-11] MEDS ORDERED: LEVOTHYROXINE NA 175 MCG TABLET PO SCH (07:00)
[2018-12-11 08:24] LABS: BASO % 0.2 % (0-2.0); EOS % 1.5 % (0-4.5); HEMATOCRIT 34.3 % (35.4-49); LYMPH % 12.5 % (8-40); MCH 34.8 pg (25.7-33.7); MCHC 34.9 g/dl (32.0-35.9); MEAN CELL VOLUME 99.9 fl (80-96); MEAN PLT VOLUME 8.5 fl (7.5-11.1); MONO % 9.2 % (3.8-10.2); NEUT % 76.6 % (42.8-82.8); PLATELET COUNT 245 K/MM3 (134-434); RBC 3.43 M/mm3 (4.00-5.60); RDW 13.2 % (11.9-15.9)
[2018-12-11 09:09] LABS: ALK PHOS 60 U/L (45-117); ANION GAP 6 MMOL/L (8-16); BILIRUBIN,TOTAL 0.2 mg/dL (0.2-1); BLOOD UREA NITROGEN 13 mg/dL (7-18); CALCIUM 9.2 mg/dL (8.5-10.1); CHLORIDE 105 mmol/L (98-107); CO2 28 mmol/L (21-32); CREATININE 0.9 mg/dL (0.55-1.3); GLUCOSE,RANDOM 110 mg/dL (74-106); POTASSIUM 4.3 mmol/L (3.5-5.1); SGOT/AST 14 U/L (15-37); SGPT/ALT 15 U/L (13-61); SODIUM 138 mmol/L (136-145); TOT PROT 7.3 g/dl (6.4-8.2)
[2018-12-11] MEDS ORDERED: PT OWN MED DRAWER 7, Y5N ONE (09:54)
[2018-12-11] MEDS: CALCIUM 500MG/VIT-D 200 UNITS COMBO TABLET (FP) PO SCH (10:27)
[2018-12-11] MEDS: LACOSAMIDE 50 MG TABLET PO SCH ×2 (10:27→21:31)
[2018-12-11] MEDS: MULTIVITAMINS (DAILY MVI) TABLET (FP) PO SCH (10:27)
[2018-12-11] MEDS: SENNOSIDES 8.6MG TABLET (FP) PO SCH ×2 (10:27→21:28)
[2018-12-11] MEDS: PANTOPRAZOLE 20 MG TABLET (FP) PO SCH (10:27)
[2018-12-11] MEDS: FOLIC ACID 1 MG TABLET (FP) PO SCH (10:28)
[2018-12-11] MEDS: LITHIUM CARBONATE 450 MG TABLET.ER PO SCH ×2 (10:28→21:30)
[2018-12-11] MEDS: TAMSULOSIN HCL 0.4 MG CAP PO SCH (10:28)
[2018-12-11] MEDS: busPIRone HCL 10 MG TABLET (FP) PO SCH ×2 (10:29→21:31)
[2018-12-11] MEDS: DESMOPRESSIN ACETATE 0.2 MG TABLET PO SCH ×2 (10:29→21:29)
[2018-12-11] MEDS: ENALAPRIL MALEATE 2.5 MG TABLET (FP) PO SCH (10:30)
--- NOTE | 2018-12-11 11:26 | PN ---
Progress Note (short form) - Note Progress Note: Events noted pt is awake and alert no complaints no coughing On airborne isolation Vital Signs - 24 hr 12/10/18 12/10/18 12/10/18 13:46 14:28 18:14 Temperature 98.4 F 98.5 F Pulse Rate 98 H Pulse Rate [ 98 H Brachial] Respiratory 18 18 Rate Blood Pressure 145/84 Blood Pressure 120/63 [Left Arm] O2 Sat by Pulse 100 Oximetry (%) 12/10/18 12/10/18 12/10/18 18:20 21:00 22:00 Temperature 98.4 F Pulse Rate 97 H Pulse Rate [ Brachial] Respiratory 18 20 Rate Blood Pressure 137/74 Blood Pressure [Left Arm] O2 Sat by Pulse 100 100 Oximetry (%) 12/11/18 12/11/18 07:06 10:00 Temperature 99.2 F 97.9 F Pulse Rate 99 H 100 H Pulse Rate [ Brachial] Respiratory 20 18 Rate Blood Pressure 131/72 123/68 Blood Pressure [Left Arm] O2 Sat by Pulse Oximetry (%) Current Medications Generic Name Dose Route Start Last Admin Trade Name Freq PRN Reason Stop Dose Admin Acetaminophen 650 mg 12/10/18 13:10 Tylenol - PO Q4H PRN FEVER Buspirone HCl 30 mg 12/10/18 22:00 12/11/18 10:29 Buspar - PO 30 mg BID TORSTEN Administration Calcium Carbonate/Cholecalciferol 1 tab 12/11/18 10:00 12/11/18 10:27 Os-Arturo 500+D - PO 1 tab DAILY TORSTEN Administration Clonazepam 0.5 mg 12/10/18 14:30 12/11/18 06:01 Klonopin - PO 0.5 mg TID TORSTEN Administration Clozapine 300 mg 12/10/18 22:00 12/10/18 21:17 Clozaril - PO 300 mg HS TORSTEN Administration Desmopressin Acetate 0.2 mg 12/10/18 22:00 12/11/18 10:29 Ddavp - PO 0.2 mg BID TORSTEN Administration Docusate Sodium 300 mg 12/10/18 14:00 12/11/18 06:01 Colace - PO 300 mg TID TORSTEN Administration Enalapril Maleate 2.5 mg 12/11/18 10:00 12/11/18 10:30 Vasotec - PO 2.5 mg DAILY TORSTEN Administration Folic Acid 1 mg 12/11/18 10:00 12/11/18 10:28 Folic Acid - PO 1 mg DAILY TORSTEN Administration Piperacillin Sod/Tazobactam 50 mls @ 100 mls/hr 12/10/18 18:00 12/11/18 10:28 Sod 3.375 gm/ Dextrose IVPB 100 mls/hr Q8H-IV TORSTEN Administration Protocol Lacosamide 50 mg 12/10/18 22:00 12/11/18 10:27 Vimpat - PO 50 mg BID TORSTEN Administration Levothyroxine Sodium 100 mcg/ 175 mcg 12/11/18 07:00 12/11/18 06:01 Levothyroxine Sodium 75 mcg PO 175 mcg DAILY@0700 TORSTEN Administration [place] Carbonate 450 mg 12/10/18 22:00 12/11/18 10:28 Eskalith - PO 450 mg BID TORSTEN Administration Multivitamins/Minerals/Vitamin C 1 tab 12/11/18 10:00 12/11/18 10:27 Tab-A-Vit - PO 1 tab DAILY TORSTEN Administration Pantoprazole Sodium 20 mg 12/11/18 10:00 12/11/18 10:27 Protonix - PO 20 mg DAILY TOR[facility]EN Administration Senna 2 tab 12/10/18 22:00 12/11/18 10:27 Senna - PO 2 tab BID TORSTEN Administration Tamsulosin HCl 0.4 mg 12/11/18 08:30 12/11/18 10:28 Flomax - PO 0.4 mg DAILY@0830 T[facility]EN Administration Laboratory Results - last 24 hr 12/11/18 12/11/18 12/11/18 05:55 05:55 05:55 WBC 9.0 RBC 3.43 L Hgb 12.0 Hct 34.3 L MCV 99.9 H MCH 34.8 H MCHC 34.9 RDW 13.2 Plt Count 245 MPV 8.5 Absolute Neuts (auto) 6.9 Neutrophils % 76.6 Lymphocytes % 12.5 D Monocytes % 9.2 Eosinophils % 1.5 Basophils % 0.2 Nucleated RBC % 0 Sodium 138 Potassium 4.3 Chloride 105 Carbon Dioxide 28 Anion Gap 6 L BUN 13 Creatinine 0.9 Creat Clearance w eGFR > 60 Random Glucose 110 H Calcium 9.2 Total Bilirubin 0.2 AST 14 L ALT 15 Alkaline Phosphatase 60 Total Protein 7.3 Albumin 3.0 L TSH 2.57 HIV 1&2 Antibody Screen Negative HIV P24 Antigen Negative No pallor S1 S2 RRR lungs ronchi+ Abd- soft, NT, ND No edema PLAN Pneumonia vs malignancy vs TB on airborne isolation till TB ruled out IV antibiotics Nebs Spoke with ID Will need to repeat CT next week DVT prophylaxis-- Lovenox sc Problem List - Problems (1) Lung mass Code(s): R91.8 - OTHER NONSPECIFIC ABNORMAL FINDING OF LUNG FIELD (2) Pneumonia Code(s): J18.9 - PNEUMONIA, UNSPECIFIED ORGANISM (3) Psychiatric disorder Code(s): F99 - MENTAL DISORDER, NOT OTHERWISE SPECIFIED (4) Head injury Code(s): S09.90XA - UNSPECIFIED INJURY OF HEAD, INITIAL ENCOUNTER Qualifiers: Encounter type: initial encounter Qualified Code(s): S09.90XA - Unspecified injury of head, initial encounter (5) Laceration of scalp Code(s): S01.01XA - LACERATION WITHOUT FOREIGN BODY OF SCALP, INITIAL ENCOUNTER Qualifiers: Encounter type: initial encounter Qualified Code(s): S01.01XA - Laceration without foreign body of scalp, initial encounter (6) Mental retardation Code(s): F79 - UNSPECIFIED INTELLECTUAL DISABILITIES
--- NOTE | 2018-12-11 11:46 | CONS ---
INFECTIOUS DISEASE CONSULTATION DATE OF CONSULTATION: 12/10/2018 The patient is a 48-year-old male, developmentally delayed, evaluated for pneumonia. [facility] reports of fever and chills. The patient had apparently developed fever to 102 associated with shaking chills. He was taken to the emergency room where he was noted to have temperature 100.9. Chest x-ray showed a round lesion, right upper lobe. CAT scan of the chest showed a right upper lobe mass-like consolidation with evidence of cavitation. He reports cough productive of brownish sputum. He denies any gustavo hemoptysis. He denies any chest pain or shortness of breath. The patient lives in a penitentiary. No known ill contacts. He denies tobacco use. No recent travel or recent hospitalizations. He has no known TB exposure. His PPD status is not known. He denies history of HIV risk factors. PAST MEDICAL HISTORY: Positive for anxiety, depression, psychosis, hypertension, hypothyroidism, developmental delay, seizure disorder. ALLERGIES: CHLORPROMAZINE. MEDICATIONS: Include BuSpar, Colace, Vasotec, folic acid, Synthroid, Prilosec, Flomax, Klonopin. SOCIAL HISTORY: Lives in a penitentiary. Denies tobacco, alcohol, or illicit drug use. No known risk factors for HIV. SYSTEMS REVIEW: Neurologic: Positive for developmental delay and seizure disorder. No loss of consciousness or focal weakness. Cardiac: Negative chest pain or palpitations. Respiratory: As per HPI. Gastrointestinal: Negative vomiting or diarrhea. Genitourinary: Negative for urinary tract infection. LABORATORY DATA: White count 9.9; neutrophils 78, lymphocytes 10, monocytes 10; hematocrit 30.5; platelet count 246. BUN 13, creatinine 1.0. Liver enzymes normal. Influenza swab negative. PHYSICAL EXAMINATION: General: He is awake and alert, in no acute distress. Vital Signs: Temperature 98.4, T-max 100.9; blood pressure 120/63; pulse 98, regular; respirations 18 per minute. HEENT: Sclerae are anicteric. Poor dentition. Heart: Sounds S1, S2. Lungs: A few rhonchi bilaterally, right lung field greater than left. Abdomen: Soft. No tenderness elicited. No mass, rebound, or rigidity. Extremities: Negative for edema. IMPRESSION: Mass-like consolidation, right upper lobe; rule out necrotizing pneumonia, community-acquired versus atypical pneumonia, acid-fast bacillus disease, and possible neoplasm. Will place on respiratory isolation; obtain sputum AFB, QuantiFERON, sputum culture, urine legionella and pneumococcal antigens, HIV test (patient gives consent); empiric antibiotic coverage with Zosyn. Will need followup imaging to document resolution of infiltrate and possible biopsy to rule out malignancy. Thank you for the kind referral. JOVANY CALIX M.D. [id number]
--- NOTE | 2018-12-11 12:11 | PN ---
Progress Note, Physician History of Present Illness: AWAKE, ALERT NO COMPLAINTS OCCASIONAL COUGH DENIES CHEST PAIN/ DYSPNEA AFEBRILE WBC WNL HIV (-) SPUTUM PENDING - Current Medication List Current Medications: Active Medications Acetaminophen (Tylenol -) 650 mg PO Q4H PRN PRN Reason: FEVER Buspirone HCl (Buspar -) 30 mg PO BID [facility] Last Admin: 12/11/18 10:29 Dose: 30 mg Calcium Carbonate/Cholecalciferol (Os-Arturo 500+D -) 1 tab PO DAILY [facility] Last Admin: 12/11/18 10:27 Dose: 1 tab Clonazepam (Klonopin -) 0.5 mg PO TID [facility] Last Admin: 12/11/18 06:01 Dose: 0.5 mg Clozapine (Clozaril -) 300 mg PO HS [facility] Last Admin: 12/10/18 21:17 Dose: 300 mg Desmopressin Acetate (Ddavp -) 0.2 mg PO BID [facility] Last Admin: 12/11/18 10:29 Dose: 0.2 mg Docusate Sodium (Colace -) 300 mg PO TID [facility] Last Admin: 12/11/18 06:01 Dose: 300 mg Enalapril Maleate (Vasotec -) 2.5 mg PO DAILY [facility] Last Admin: 12/11/18 10:30 Dose: 2.5 mg Enoxaparin Sodium (Lovenox -) 40 mg SQ DAILY [facility] Folic Acid (Folic Acid -) 1 mg PO DAILY [facility] Last Admin: 12/11/18 10:28 Dose: 1 mg Piperacillin Sod/Tazobactam (Sod 3.375 gm/ Dextrose) 50 mls @ 100 mls/hr IVPB Q8H-IV [facility]; Protocol Last Admin: 12/11/18 10:28 Dose: 100 mls/hr Lacosamide (Vimpat -) 50 mg PO BID [facility] Last Admin: 12/11/18 10:27 Dose: 50 mg Levothyroxine Sodium 100 mcg/ (Levothyroxine Sodium 75 mcg) 175 mcg PO DAILY@ 0700 [facility] Last Admin: 12/11/18 06:01 Dose: 175 mcg [place] Carbonate (Eskalith -) 450 mg PO BID [facility] Last Admin: 12/11/18 10:28 Dose: 450 mg Multivitamins/Minerals/Vitamin C (Tab-A-Vit -) 1 tab PO DAILY [facility] Last Admin: 12/11/18 10:27 Dose: 1 tab Pantoprazole Sodium (Protonix -) 20 mg PO DAILY [facility] Last Admin: 12/11/18 10:27 Dose: 20 mg Senna (Senna -) 2 tab PO BID [facility] Last Admin: 12/11/18 10:27 Dose: 2 tab Tamsulosin HCl (Flomax -) 0.4 mg PO DAILY@0830 [facility] Last Admin: 12/11/18 10:28 Dose: 0.4 mg - Objective Vital Signs: Vital Signs Temperature 97.9 F 12/11/18 10:00 Pulse Rate 100 H 12/11/18 10:00 Respiratory Rate 18 12/11/18 10:00 Blood Pressure 123/68 12/11/18 10:00 O2 Sat by Pulse Oximetry (%) 100 12/10/18 21:00 Constitutional: Yes: No Distress Eyes: Yes: Conjunctiva Clear Cardiovascular: Yes: Regular Rate and Rhythm, S1, S2 Respiratory: Yes: CTA Bilaterally Gastrointestinal: Yes: Normal Bowel Sounds, Soft. No: Tenderness Edema: No Labs: CBC, BMP 12/11/18 05:55 12/11/18 05:55 INR, PTT INR 1.21 (0.83-1.09) H 12/10/18 02:41 Assessment/Plan MASS-LIKE RUL CONSOLIDATION WITH ? CAVITATION R/O NECROTIZING PNEUMONIA/ LUNG ABSCESS R/O AFB DZ R/O NEOPLASM AWAIT SPUTUM C/S AFB CONTINUE ZOSYN
--- NOTE | 2018-12-11 14:42 | CON.PULM ---
Consult Consult Specialty:: PULMONARY Referred by:: ANDREY Reason for Consultation:: ABN CXR/CT CHEST - History of Present Illness Chief Complaint: COUGH History of Present Illness: 48 yo M w a hx of intellectual disability, anxiety/depression with psychosis, conduct disorder, previous SOB 2/2 severe constipation, urinary retention, hypothyroidism, HTN presents from [facility] ([facility] with fevers up to 102. The aid who is with him at bedside states that he found him in bed shaking noticed he had a fever and then brought him into the ER. The patient is not able to contribute much to the history secondary to his mental condition. - History Source History Provided By: Medical Record, Transfer Record Limitations to Obtaining History: Clinical Condition - Past Medical History TITLE CURATOR: Yes: Other (DEVELOPMENTAL DISORDER) Cardio/Vascular: No: AFIB Pulmonary: No: Asthma Gastrointestinal: No: Ascites Hepatobiliary: No: Cirrhosis Renal/: No: Renal Failure Heme/Onc: No: Anemia Infectious Disease: No: AIDS - Alcohol/Substance Use Hx Alcohol Use: No - Smoking History Smoking history: Never smoked Have you smoked in the past 12 months: No Aproximately how many cigarettes per day: 0 - Social History Usual Living Arrangement: Assisted Living ADL: Support Services Place of : [facility] History of Recent Travel: No Home Medications - Allergies Allergies/Adverse Reactions: Allergies Allergy/AdvReac Type Severity Reaction Status Date / Time chlorpromazine Allergy Intermediate Verified 12/10/18 02:05 [From Thorazine] - Home Medications Home Medications: Ambulatory Orders Buspirone HCl [Buspar -] 30 mg PO BID 10/28/15 Calcium Carbonate/Vitamin D3 [Oystercal-D 500 mg-400 Unit Tb] 1 each PO DAILY Clozapine [Clozaril] 300 mg PO HS 10/28/15 Docusate Sodium [Colace -] 300 mg PO TID 10/28/15 Enalapril Maleate [Vasotec -] 2.5 mg PO DAILY 10/28/15 Ergocalciferol (Vitamin D2) [Vitamin D] 50,000 unit PO MONTHLY 10/28/15 Folic Acid - 1 mg PO DAILY 10/28/15 Lacosamide [Vimpat -] 50 mg PO BID 10/28/15 Levothyroxine [Synthroid -] 15 mcg PO ASDIR 10/28/15 Levothyroxine [Synthroid -] 175 mcg PO ASDIR 10/28/15 [place] Carbonate [Eskalith -] 450 mg PO BID 10/28/15 Multivitamins [Multivit ([facility] Formulary)] 1 tab PO DAILY 10/28/15 Omeprazole [Prilosec (RX)] 20 mg PO DAILY 10/28/15 Sennosides [Senna] 8.6 mg PO BID 10/28/15 Tamsulosin HCl [Flomax -] 0.4 mg PO HS 10/28/15 Clonazepam [Klonopin] 0.5 mg PO TID 11/06/17 Desmopressin Acetate [Ddavp] 0.2 mg PO BID 11/06/17 Family Disease History - Family Disease History Family History: Unable to Obtain Review of Systems Unable to obtain ROS, reason: POOR INFORMANT Physical Exam Vital Sings: Vital Signs Temperature 97.9 F 12/11/18 10:00 Pulse Rate 100 H 12/11/18 10:00 Respiratory Rate 18 12/11/18 10:00 Blood Pressure 123/68 12/11/18 10:00 O2 Sat by Pulse Oximetry (%) 100 12/10/18 21:00 Constitutional: Yes: Calm Eyes: Yes: EOM Intact HENT: Yes: Normocephalic Neck: Yes: Trachea Midline Cardiovascular: Yes: Regular Rate and Rhythm Respiratory: Yes: Diminished ...Clubbing: No Gastrointestinal: Yes: Normal Bowel Sounds Extremities: Yes: WNL Edema: No Neurological: Yes: Pre-Existing Deficit Labs: CBC, BMP 12/11/18 05:55 12/11/18 05:55 REST REVIEWED Imaging - Results Chest X-ray: Report Reviewed, Image Reviewed Cat Scan: Report Reviewed, Image Reviewed Problem List - Problems (1) Lung mass Code(s): R91.8 - OTHER NONSPECIFIC ABNORMAL FINDING OF LUNG FIELD (2) Pneumonia Code(s): J18.9 - PNEUMONIA, UNSPECIFIED ORGANISM (3) Psychiatric disorder Code(s): F99 - MENTAL DISORDER, NOT OTHERWISE SPECIFIED Assessment/Plan RUL ROUNDED DENSITY WITH HYPERLUCENT AREAS/H/O SHAKING CHILLS AND CONGESTED COUGH WOULD TREAT FOR PNEUMONIA WITH ANTIBIOTICS/NEBS/O2 SUPPLEMENTATION CHECK CULTURES/URINE ANTIGENS NEED TO REPEAT IMAGING STUDY IN 2-4 WEEKS TO DOCUMENT CHANGE IN LESION MAY ULTIMATELY NEED DIAGNOSTIC PROCEDURE TO R/O NEOPLASM WILL FOLLOW R FARA MD
[2018-12-11] MEDS: cloZAPine 100 MG TABLET PO SCH (21:30)
[2018-12-12] MEDS ORDERED: PIPERACILLIN/TAZOBACTAM 3.375 GM VIAL IVPB ONE ×4 (01:12→22:38)
[2018-12-12] MEDS ORDERED: DEXTROSE 5%-WATER - 50 ML IVPB ONE ×3 (01:13→17:19)
[2018-12-12] MEDS: PIPERACILLIN/TAZOB 3.375 GM 3.375 GM in DEXTROSE 5%-WATER - 50 ML IVPB SCH ×3 (01:23→18:27)
[2018-12-12] MEDS ORDERED: LEVOTHYROXINE NA 100 MCG TABLET (FP) ONE (06:00)
[2018-12-12] MEDS ORDERED: LEVOTHYROXINE NA 25 MCG TABLET (FP) ONE (06:00)
[2018-12-12] MEDS: LEVOTHYROXINE 100 MCG, LEVOTHYROXINE 75 MCG PO SCH (06:11)
[2018-12-12] MEDS: DOCUSATE SODIUM 100 MG CAPSULE (FP) PO SCH ×3 (06:12→22:42)
[2018-12-12] MEDS: clonazePAM 0.5 MG TABLET PO SCH ×3 (06:12→22:44)
[2018-12-12] MEDS ORDERED: PT OWN MED DRAWER 7, Y5N ONE ×2 (08:53→09:13)
--- NOTE | 2018-12-12 09:02 | PN ---
Progress Note (short form) - Note Progress Note: pt is awake and alert no complaints dry cough+ On airborne isolation Vital Signs - 24 hr 12/11/18 12/11/18 12/12/18 21:00 22:00 06:00 Temperature 98.6 F 99.8 F H Pulse Rate 108 H 100 H Respiratory 19 20 Rate Blood Pressure 112/74 128/68 O2 Sat by Pulse 100 Oximetry (%) 12/12/18 12/12/18 09:22 15:00 Temperature 99.6 F 98.9 F Pulse Rate 99 H 86 Respiratory 18 18 Rate Blood Pressure 139/79 107/60 O2 Sat by Pulse Oximetry (%) Current Medications Generic Name Dose Route Start Last Admin Trade Name Freq PRN Reason Stop Dose Admin Acetaminophen 650 mg 12/10/18 13:10 12/12/18 09:18 Tylenol - PO 650 mg Q4H PRN Administration FEVER Buspirone HCl 30 mg 12/10/18 22:00 12/12/18 09:05 Buspar - PO 30 mg BID TORSTEN Administration Calcium Carbonate/Cholecalciferol 1 tab 12/11/18 10:00 12/12/18 09:04 Os-Arturo 500+D - PO 1 tab DAILY [facility] Administration Clonazepam 1 mg 12/13/18 08:00 Klonopin - PO AM [facility]ORSTNE Clonazepam 0.5 mg 12/12/18 16:00 12/12/18 16:05 Klonopin - PO 0.5 mg BID [facility]ORSTEN Administration Clozapine 300 mg 12/10/18 22:00 12/11/18 21:30 Clozaril - PO 300 mg HS [facility]ORSTEN Administration Desmopressin Acetate 0.4 mg 12/12/18 09:19 12/12/18 10:14 Ddavp - PO 0.2 mg BID [facility] Administration Docusate Sodium 300 mg 12/10/18 14:00 12/12/18 16:04 Colace - PO 300 mg TID [facility] Administration Enalapril Maleate 2.5 mg 12/11/18 10:00 12/12/18 09:05 Vasotec - PO 2.5 mg DAILY [facility] Administration Enoxaparin Sodium 40 mg 12/12/18 10:00 12/12/18 09:03 Lovenox - SQ 40 mg DAILY [facility] Administration Folic Acid 1 mg 12/11/18 10:00 12/12/18 09:04 Folic Acid - PO 1 mg DAILY [facility] Administration Piperacillin Sod/Tazobactam 50 mls @ 100 mls/hr 12/10/18 18:00 12/12/18 09:03 Sod 3.375 gm/ Dextrose IVPB 100 mls/hr Q8H-IV [facility] Administration Protocol Lacosamide 50 mg 12/10/18 22:00 12/12/18 09:04 Vimpat - PO 50 mg BID [facility] Administration Levothyroxine Sodium 150 mcg 12/13/18 07:00 Synthroid - PO SuFrSa [facility]OR[facility]EN Levothyroxine Sodium 100 mcg/ 175 mcg 12/13/18 09:40 Levothyroxine Sodium 75 mcg PO MoWeTh [facility]ORSTEN [place] Carbonate 450 mg 12/10/18 22:00 12/12/18 09:04 Eskalith - PO 450 mg BID [facility]ORSTEN Administration Multivitamins/Minerals/Vitamin C 1 tab 12/11/18 10:00 12/12/18 09:03 Tab-A-Vit - PO 1 tab DAILY [facility] Administration Pantoprazole Sodium 20 mg 12/11/18 10:00 12/12/18 09:04 Protonix - PO 20 mg DAILY [facility] Administration Senna 2 tab 12/10/18 22:00 12/12/18 09:03 Senna - PO 2 tab BID [facility] Administration Tamsulosin HCl 0.4 mg 12/11/18 08:30 12/12/18 09:04 Flomax - PO 0.4 mg DAILY@0830 [facility] Administration No pallor S1 S2 RRR lungs ronchi+ Abd- soft, NT, ND No edema PLAN Pneumonia vs malignancy vs TB on airborne isolation till TB ruled out IV antibiotics Nebs Spoke with ID pulmonary eval noted unable to get sputum for studies Will need to repeat CT next week DVT prophylaxis-- Lovenox sc Problem List - Problems (1) Lung mass Code(s): R91.8 - OTHER NONSPECIFIC ABNORMAL FINDING OF LUNG FIELD (2) Pneumonia Code(s): J18.9 - PNEUMONIA, UNSPECIFIED ORGANISM (3) Psychiatric disorder Code(s): F99 - MENTAL DISORDER, NOT OTHERWISE SPECIFIED (4) Head injury Code(s): S09.90XA - UNSPECIFIED INJURY OF HEAD, INITIAL ENCOUNTER Qualifiers: Encounter type: initial encounter Qualified Code(s): S09.90XA - Unspecified injury of head, initial encounter (5) Laceration of scalp Code(s): S01.01XA - LACERATION WITHOUT FOREIGN BODY OF SCALP, INITIAL ENCOUNTER Qualifiers: Encounter type: initial encounter Qualified Code(s): S01.01XA - Laceration without foreign body of scalp, initial encounter (6) Mental retardation Code(s): F79 - UNSPECIFIED INTELLECTUAL DISABILITIES
[2018-12-12] MEDS: ENOXAPARIN NA (PORCINE) 40 MG/0.4 ML DISP.SYRIN SQ SCH (09:03)
[2018-12-12] MEDS: SENNOSIDES 8.6MG TABLET (FP) PO SCH ×2 (09:03→22:44)
[2018-12-12] MEDS: MULTIVITAMINS (DAILY MVI) TABLET (FP) PO SCH (09:03)
[2018-12-12] MEDS: FOLIC ACID 1 MG TABLET (FP) PO SCH (09:04)
[2018-12-12] MEDS: PANTOPRAZOLE 20 MG TABLET (FP) PO SCH (09:04)
[2018-12-12] MEDS: CALCIUM 500MG/VIT-D 200 UNITS COMBO TABLET (FP) PO SCH (09:04)
[2018-12-12] MEDS: TAMSULOSIN HCL 0.4 MG CAP PO SCH (09:04)
[2018-12-12] MEDS: LITHIUM CARBONATE 450 MG TABLET.ER PO SCH ×2 (09:04→22:44)
[2018-12-12] MEDS: LACOSAMIDE 50 MG TABLET PO SCH ×2 (09:04→22:44)
[2018-12-12] MEDS: busPIRone HCL 10 MG TABLET (FP) PO SCH ×2 (09:05→22:42)
[2018-12-12] MEDS: DESMOPRESSIN ACETATE 0.2 MG TABLET PO SCH ×3 (09:05→23:44)
[2018-12-12] MEDS: ENALAPRIL MALEATE 2.5 MG TABLET (FP) PO SCH (09:05)
[2018-12-12] MEDS ORDERED: LEVOTHYROXINE 100 MCG, LEVOTHYROXINE 75 MCG PO SCH (09:20)
[2018-12-12] MEDS ORDERED: clonazePAM 0.5 MG TABLET PO ONE (09:30)
--- NOTE | 2018-12-12 13:04 | PN ---
Progress Note, Physician History of Present Illness: AWAKE, ALERT C/O COUGH UNABLE TO GIVE SPUTUM SPECIMEN DENIES CHEST PAIN/ DYSPNEA AFEBRILE WBC WNL HIV (-) - Current Medication List Current Medications: Active Medications Acetaminophen (Tylenol -) 650 mg PO Q4H PRN PRN Reason: FEVER Last Admin: 12/12/18 09:18 Dose: 650 mg Buspirone HCl (Buspar -) 30 mg PO BID [facility] Last Admin: 12/12/18 09:05 Dose: 30 mg Calcium Carbonate/Cholecalciferol (Os-Arturo 500+D -) 1 tab PO DAILY [facility] Last Admin: 12/12/18 09:04 Dose: 1 tab Clonazepam (Klonopin -) 1 mg PO AM [facility] Clonazepam (Klonopin -) 0.5 mg PO BID [facility] Clozapine (Clozaril -) 300 mg PO HS [facility] Last Admin: 12/11/18 21:30 Dose: 300 mg Desmopressin Acetate (Ddavp -) 0.4 mg PO BID [facility] Last Admin: 12/12/18 10:14 Dose: 0.2 mg Docusate Sodium (Colace -) 300 mg PO TID [facility] Last Admin: 12/12/18 06:12 Dose: 300 mg Enalapril Maleate (Vasotec -) 2.5 mg PO DAILY [facility] Last Admin: 12/12/18 09:05 Dose: 2.5 mg Enoxaparin Sodium (Lovenox -) 40 mg SQ DAILY [facility] Last Admin: 12/12/18 09:03 Dose: 40 mg Folic Acid (Folic Acid -) 1 mg PO DAILY [facility] Last Admin: 12/12/18 09:04 Dose: 1 mg Piperacillin Sod/Tazobactam (Sod 3.375 gm/ Dextrose) 50 mls @ 100 mls/hr IVPB Q8H-IV [facility]; Protocol Last Admin: 12/12/18 09:03 Dose: 100 mls/hr Lacosamide (Vimpat -) 50 mg PO BID [facility] Last Admin: 12/12/18 09:04 Dose: 50 mg Levothyroxine Sodium (Synthroid -) 150 mcg PO SuFrSa [facility] Levothyroxine Sodium 100 mcg/ (Levothyroxine Sodium 75 mcg) 175 mcg PO MoWeTh [facility] [place] Carbonate (Eskalith -) 450 mg PO BID [facility] Last Admin: 12/12/18 09:04 Dose: 450 mg Multivitamins/Minerals/Vitamin C (Tab-A-Vit -) 1 tab PO DAILY [facility] Last Admin: 12/12/18 09:03 Dose: 1 tab Pantoprazole Sodium (Protonix -) 20 mg PO DAILY [facility] Last Admin: 12/12/18 09:04 Dose: 20 mg Senna (Senna -) 2 tab PO BID [facility] Last Admin: 12/12/18 09:03 Dose: 2 tab Tamsulosin HCl (Flomax -) 0.4 mg PO DAILY@0830 [facility] Last Admin: 12/12/18 09:04 Dose: 0.4 mg - Objective Vital Signs: Vital Signs Temperature 99.6 F 12/12/18 09:22 Pulse Rate 99 H 12/12/18 09:22 Respiratory Rate 18 12/12/18 09:22 Blood Pressure 139/79 12/12/18 09:22 O2 Sat by Pulse Oximetry (%) 100 12/11/18 21:00 Constitutional: Yes: No Distress Eyes: Yes: Conjunctiva Clear Cardiovascular: Yes: Regular Rate and Rhythm, S1, S2 Respiratory: Yes: Rhonchi Gastrointestinal: Yes: Normal Bowel Sounds, Soft. No: Tenderness Edema: No Labs: CBC, BMP 12/11/18 05:55 12/11/18 05:55 INR, PTT INR 1.21 (0.83-1.09) H 12/10/18 02:41 Assessment/Plan MASS-LIKE RUL CONSOLIDATION WITH ? CAVITATION R/O NECROTIZING PNEUMONIA/ LUNG ABSCESS R/O AFB DZ R/O NEOPLASM AWAIT SPUTUM C/S AFB CONTINUE ZOSYN
--- NOTE | 2018-12-12 13:10 | PN ---
Progress Note (short form) - Note Progress Note: PULMONARY APPEARS STABLE/COUGH CONTINUES VSS/AFEBRILE ANICTERIC/PALE CLEAR BREATH SOUNDS S1S2 BS+ NO EDEMA LABS/MEDS/NOTES/IMAGES REVIEWED RUL ROUNDED DENSITY WITH HYPERLUCENT AREAS/H/O SHAKING CHILLS AND CONGESTED COUGH TREATING FOR PNEUMONIA WITH ANTIBIOTICS/NEBS/O2 SUPPLEMENTATION CHECK CULTURES/URINE ANTIGENS NEED TO REPEAT IMAGING STUDY IN 2-4 WEEKS TO DOCUMENT CHANGE IN LESION MAY ULTIMATELY NEED DIAGNOSTIC PROCEDURE TO R/O NEOPLASM R Terrance GARZA Problem List - Problems (1) Lung mass Code(s): R91.8 - OTHER NONSPECIFIC ABNORMAL FINDING OF LUNG FIELD (2) Pneumonia Code(s): J18.9 - PNEUMONIA, UNSPECIFIED ORGANISM (3) Psychiatric disorder Code(s): F99 - MENTAL DISORDER, NOT OTHERWISE SPECIFIED
[2018-12-12] MEDS ORDERED: DEXTROSE 5%-WATER - 100 ML IVPB ONE (22:38)
[2018-12-12] MEDS: cloZAPine 100 MG TABLET PO SCH (22:42)
[2018-12-13] MEDS: PIPERACILLIN/TAZOB 3.375 GM 3.375 GM in DEXTROSE 5%-WATER - 50 ML IVPB SCH ×3 (01:51→17:13)
[2018-12-13] MEDS: DOCUSATE SODIUM 100 MG CAPSULE (FP) PO SCH ×3 (06:26→21:36)
[2018-12-13] MEDS ORDERED: LEVOTHYROXINE NA 150 MCG TABLET PO SCH (07:00)
[2018-12-13] MEDS: TAMSULOSIN HCL 0.4 MG CAP PO SCH (08:22)
[2018-12-13] MEDS: clonazePAM 0.5 MG TABLET PO SCH ×3 (08:22→21:35)
[2018-12-13] MEDS ORDERED: LEVOTHYROXINE 100 MCG, LEVOTHYROXINE 75 MCG PO SCH (09:40)
--- NOTE | 2018-12-13 10:01 | PN ---
Progress Note (short form) - Note Progress Note: pt seen/ examined awake/ comfortable no complains all f/u noted Vital Signs Temp 98.2 F 12/13/18 06:31 Pulse 88 12/13/18 06:31 Resp 20 12/13/18 06:31 BP 137/80 12/13/18 06:31 Pulse Ox 100 12/12/18 21:00 Intake & Output 12/12/18 12/12/18 12/13/18 11:59 23:59 11:59 Intake Total 1650 Balance 1650 Intake: IVPB 150 Oral 1500 Other: Voiding Method Toilet Toilet # Unmeasured Voids Void 1 2 2 Bowel Movement No Yes # Bowel Movements 2 Active Medications Acetaminophen (Tylenol -) 650 mg PO Q4H PRN PRN Reason: FEVER Last Admin: 12/12/18 09:18 Dose: 650 mg Buspirone HCl (Buspar -) 30 mg PO BID [facility] Last Admin: 12/12/18 22:42 Dose: 30 mg Calcium Carbonate/Cholecalciferol (Os-Arturo 500+D -) 1 tab PO DAILY [facility] Last Admin: 12/12/18 09:04 Dose: 1 tab Clonazepam (Klonopin -) 1 mg PO AM [facility] Last Admin: 12/13/18 08:22 Dose: 1 mg Clonazepam (Klonopin -) 0.5 mg PO BID [facility] Last Admin: 12/12/18 22:44 Dose: 0.5 mg Clozapine (Clozaril -) 300 mg PO HS [facility] Last Admin: 12/12/18 22:42 Dose: 300 mg Desmopressin Acetate (Ddavp -) 0.4 mg PO BID [facility] Last Admin: 12/12/18 23:44 Dose: 0.4 mg Docusate Sodium (Colace -) 300 mg PO TID [facility] Last Admin: 12/13/18 06:26 Dose: 300 mg Enalapril Maleate (Vasotec -) 2.5 mg PO DAILY [facility] Last Admin: 12/12/18 09:05 Dose: 2.5 mg Enoxaparin Sodium (Lovenox -) 40 mg SQ DAILY [facility] Last Admin: 12/12/18 09:03 Dose: 40 mg Folic Acid (Folic Acid -) 1 mg PO DAILY [facility] Last Admin: 12/12/18 09:04 Dose: 1 mg Piperacillin Sod/Tazobactam (Sod 3.375 gm/ Dextrose) 50 mls @ 100 mls/hr IVPB Q8H-IV [facility]; Protocol Last Admin: 12/13/18 01:51 Dose: 100 mls/hr Lacosamide (Vimpat -) 50 mg PO BID [facility] Last Admin: 12/12/18 22:44 Dose: 50 mg Levothyroxine Sodium (Synthroid -) 150 mcg PO SuFrSa [facility] Last Admin: 12/13/18 06:26 Dose: 150 mcg Levothyroxine Sodium 100 mcg/ (Levothyroxine Sodium 75 mcg) 175 mcg PO MoWeTh [facility] [place] Carbonate (Eskalith -) 450 mg PO BID [facility] Last Admin: 12/12/18 22:44 Dose: 450 mg Multivitamins/Minerals/Vitamin C (Tab-A-Vit -) 1 tab PO DAILY [facility] Last Admin: 12/12/18 09:03 Dose: 1 tab Pantoprazole Sodium (Protonix -) 20 mg PO DAILY [facility] Last Admin: 12/12/18 09:04 Dose: 20 mg Senna (Senna -) 2 tab PO BID [facility] Last Admin: 12/12/18 22:44 Dose: 2 tab Tamsulosin HCl (Flomax -) 0.4 mg PO DAILY@0830 [facility] Last Admin: 12/13/18 08:22 Dose: 0.4 mg CBC, BMP 12/11/18 05:55 12/11/18 05:55 Microbiology 12/10/18 02:41 Blood Culture - Preliminary Blood - Peripheral Venous NO GROWTH OBTAINED AFTER 72 HOURS, INCUBATION TO CONTINUE FOR 2 DAYS. 12/10/18 02:41 Blood Culture - Preliminary Blood - Peripheral Venous NO GROWTH OBTAINED AFTER 72 HOURS, INCUBATION TO CONTINUE FOR 2 DAYS. Physical Examination Constitutional: Yes: No Distress, Calm and comfortable. Eyes: Yes: Conjunctiva Clear HEENT: Yes: Other (marah + -- scalp) Neck: Yes: Supple Cardiovascular: Yes: Regular Rate and Rhythm Respiratory: Yes: CTA Bilaterally Gastrointestinal: Yes: Soft Edema: No Neurological: Yes: Alert Psychiatric: Yes: Alert Labs: CBC, BMP 12/10/18 02:41 12/10/18 02:41 Imaging - Results Chest X-ray: Report Reviewed Cat Scan: Report Reviewed EKG: Report Reviewed Assessment/Plan Clinically stable Abx pulmonary / i/d on case Quantiferon pending had lung mass 07/05-- which was cleared in f/u ct chest continue psych meds check lithium level-- pending dvt prophylaxis discussed with nursing staff also will follow Problem List - Problems (1) Lung mass Code(s): R91.8 - OTHER NONSPECIFIC ABNORMAL FINDING OF LUNG FIELD (2) Psychiatric disorder Code(s): F99 - MENTAL DISORDER, NOT OTHERWISE SPECIFIED (3) Pneumonia Code(s): J18.9 - PNEUMONIA, UNSPECIFIED ORGANISM (4) Hypertension Code(s): I10 - ESSENTIAL (PRIMARY) HYPERTENSION (5) Hypothyroidism Code(s): E03.9 - HYPOTHYROIDISM, UNSPECIFIED (6) Mental retardation Code(s): F79 - UNSPECIFIED INTELLECTUAL DISABILITIES
[2018-12-13] MEDS ORDERED: LEVOTHYROXINE NA 25 MCG TABLET (FP) ONE (10:14)
[2018-12-13] MEDS ORDERED: LEVOTHYROXINE NA 100 MCG TABLET (FP) ONE (10:14)
[2018-12-13] MEDS ORDERED: DEXTROSE 5%-WATER - 50 ML IVPB ONE ×2 (10:15→16:55)
[2018-12-13] MEDS ORDERED: PT OWN MED DRAWER 7, Y5N ONE ×2 (10:15→21:30)
[2018-12-13] MEDS ORDERED: PIPERACILLIN/TAZOBACTAM 3.375 GM VIAL IVPB ONE ×2 (10:15→16:54)
--- NOTE | 2018-12-13 10:17 | PN ---
Progress Note (short form) - Note Progress Note: PULMONARY Denies shortness of breath. +nonproductive cough. No further fevers. Vital Signs Period Temp Pulse Resp BP Sys/Coughlin Pulse Ox Last 24 Hr 98.2 F-98.9 F 86-108 18-20 107-137/60-82 100 Gen: NAD at rest Heart: RRR Lung: decreased breath sounds at the bases Abd: soft, nontender Ext: no edema CBC, BMP 12/11/18 05:55 12/11/18 05:55 Active Medications Acetaminophen (Tylenol -) 650 mg PO Q4H PRN PRN Reason: FEVER Last Admin: 12/12/18 09:18 Dose: 650 mg Buspirone HCl (Buspar -) 30 mg PO BID [facility] Last Admin: 12/12/18 22:42 Dose: 30 mg Calcium Carbonate/Cholecalciferol (Os-Arturo 500+D -) 1 tab PO DAILY [facility] Last Admin: 12/12/18 09:04 Dose: 1 tab Clonazepam (Klonopin -) 1 mg PO AM [facility] Last Admin: 12/13/18 08:22 Dose: 1 mg Clonazepam (Klonopin -) 0.5 mg PO BID [facility] Last Admin: 12/12/18 22:44 Dose: 0.5 mg Clozapine (Clozaril -) 300 mg PO HS [facility] Last Admin: 12/12/18 22:42 Dose: 300 mg Desmopressin Acetate (Ddavp -) 0.4 mg PO BID [facility] Last Admin: 12/12/18 23:44 Dose: 0.4 mg Docusate Sodium (Colace -) 300 mg PO TID [facility] Last Admin: 12/13/18 06:26 Dose: 300 mg Enalapril Maleate (Vasotec -) 2.5 mg PO DAILY [facility] Last Admin: 12/12/18 09:05 Dose: 2.5 mg Enoxaparin Sodium (Lovenox -) 40 mg SQ DAILY [facility] Last Admin: 12/12/18 09:03 Dose: 40 mg Folic Acid (Folic Acid -) 1 mg PO DAILY [facility] Last Admin: 12/12/18 09:04 Dose: 1 mg Piperacillin Sod/Tazobactam (Sod 3.375 gm/ Dextrose) 50 mls @ 100 mls/hr IVPB Q8H-IV [facility]; Protocol Last Admin: 12/13/18 01:51 Dose: 100 mls/hr Lacosamide (Vimpat -) 50 mg PO BID [facility] Last Admin: 12/12/18 22:44 Dose: 50 mg Levothyroxine Sodium (Synthroid -) 150 mcg PO SuFrSa [facility] Last Admin: 12/13/18 06:26 Dose: 150 mcg Levothyroxine Sodium 100 mcg/ (Levothyroxine Sodium 75 mcg) 175 mcg PO MoWeTh [facility] [place] Carbonate (Eskalith -) 450 mg PO BID [facility] Last Admin: 12/12/18 22:44 Dose: 450 mg Multivitamins/Minerals/Vitamin C (Tab-A-Vit -) 1 tab PO DAILY [facility] Last Admin: 12/12/18 09:03 Dose: 1 tab Pantoprazole Sodium (Protonix -) 20 mg PO DAILY [facility] Last Admin: 12/12/18 09:04 Dose: 20 mg Senna (Senna -) 2 tab PO BID [facility] Last Admin: 12/12/18 22:44 Dose: 2 tab Tamsulosin HCl (Flomax -) 0.4 mg PO DAILY@0830 [facility] Last Admin: 12/13/18 08:22 Dose: 0.4 mg A/P Lung Mass - Focal Pneumonia vs Abscess vs Malignancy Mental Retardation HTN Hypothyroidism - continue antibiotics - f/u quantiferon - if quantiferon negative, can complete antibiotics and repeat CT chest in 3-4 weeks - DVT prophylaxis
[2018-12-13] MEDS: SENNOSIDES 8.6MG TABLET (FP) PO SCH ×2 (10:23→21:36)
[2018-12-13] MEDS: FOLIC ACID 1 MG TABLET (FP) PO SCH (10:24)
[2018-12-13] MEDS: CALCIUM 500MG/VIT-D 200 UNITS COMBO TABLET (FP) PO SCH (10:24)
[2018-12-13] MEDS: ENALAPRIL MALEATE 2.5 MG TABLET (FP) PO SCH (10:24)
[2018-12-13] MEDS: PANTOPRAZOLE 20 MG TABLET (FP) PO SCH (10:25)
[2018-12-13] MEDS: MULTIVITAMINS (DAILY MVI) TABLET (FP) PO SCH (10:25)
[2018-12-13] MEDS: LACOSAMIDE 50 MG TABLET PO SCH ×2 (10:25→21:34)
[2018-12-13] MEDS: busPIRone HCL 10 MG TABLET (FP) PO SCH ×2 (10:25→21:35)
[2018-12-13] MEDS: ENOXAPARIN NA (PORCINE) 40 MG/0.4 ML DISP.SYRIN SQ SCH (10:26)
[2018-12-13] MEDS: LITHIUM CARBONATE 450 MG TABLET.ER PO SCH ×2 (10:26→21:36)
[2018-12-13] MEDS: DESMOPRESSIN ACETATE 0.2 MG TABLET PO SCH ×2 (10:27→21:36)
--- NOTE | 2018-12-13 12:30 | PN ---
Progress Note, Physician History of Present Illness: AWAKE, ALERT C/O DRY COUGH TRYING TO GIVE SPUTUM SPECIMEN DENIES CHEST PAIN/ DYSPNEA AFEBRILE WBC WNL HIV (-) - Current Medication List Current Medications: Active Medications Acetaminophen (Tylenol -) 650 mg PO Q4H PRN PRN Reason: FEVER Last Admin: 12/12/18 09:18 Dose: 650 mg Buspirone HCl (Buspar -) 30 mg PO BID [facility] Last Admin: 12/13/18 10:25 Dose: 30 mg Calcium Carbonate/Cholecalciferol (Os-Arturo 500+D -) 1 tab PO DAILY [facility] Last Admin: 12/13/18 10:24 Dose: 1 tab Clonazepam (Klonopin -) 1 mg PO AM [facility] Last Admin: 12/13/18 08:22 Dose: 1 mg Clonazepam (Klonopin -) 0.5 mg PO BID [facility] Last Admin: 12/13/18 10:26 Dose: 0.5 mg Clozapine (Clozaril -) 300 mg PO HS [facility] Last Admin: 12/12/18 22:42 Dose: 300 mg Desmopressin Acetate (Ddavp -) 0.4 mg PO BID [facility] Last Admin: 12/13/18 10:27 Dose: 0.4 mg Docusate Sodium (Colace -) 300 mg PO TID [facility] Last Admin: 12/13/18 06:26 Dose: 300 mg Enalapril Maleate (Vasotec -) 2.5 mg PO DAILY [facility] Last Admin: 12/13/18 10:24 Dose: 2.5 mg Enoxaparin Sodium (Lovenox -) 40 mg SQ DAILY [facility] Last Admin: 12/13/18 10:26 Dose: 40 mg Folic Acid (Folic Acid -) 1 mg PO DAILY [facility] Last Admin: 12/13/18 10:24 Dose: 1 mg Piperacillin Sod/Tazobactam (Sod 3.375 gm/ Dextrose) 50 mls @ 100 mls/hr IVPB Q8H-IV [facility]; Protocol Last Admin: 12/13/18 10:23 Dose: 100 mls/hr Lacosamide (Vimpat -) 50 mg PO BID [facility] Last Admin: 12/13/18 10:25 Dose: 50 mg Levothyroxine Sodium (Synthroid -) 150 mcg PO SuFrSa [facility] Last Admin: 12/13/18 06:26 Dose: 150 mcg Levothyroxine Sodium 100 mcg/ (Levothyroxine Sodium 75 mcg) 175 mcg PO MoWeTh [facility] Last Admin: 12/13/18 10:24 Dose: 25 mcg [place] Carbonate (Eskalith -) 450 mg PO BID [facility] Last Admin: 12/13/18 10:26 Dose: 450 mg Multivitamins/Minerals/Vitamin C (Tab-A-Vit -) 1 tab PO DAILY [facility] Last Admin: 12/13/18 10:25 Dose: 1 tab Pantoprazole Sodium (Protonix -) 20 mg PO DAILY [facility] Last Admin: 12/13/18 10:25 Dose: 20 mg Senna (Senna -) 2 tab PO BID [facility] Last Admin: 12/13/18 10:23 Dose: 2 tab Tamsulosin HCl (Flomax -) 0.4 mg PO DAILY@0830 [facility] Last Admin: 12/13/18 08:22 Dose: 0.4 mg - Objective Vital Signs: Vital Signs Temperature 98.2 F 12/13/18 06:31 Pulse Rate 88 12/13/18 06:31 Respiratory Rate 20 12/13/18 06:31 Blood Pressure 137/80 12/13/18 06:31 O2 Sat by Pulse Oximetry (%) 100 12/12/18 21:00 Constitutional: Yes: No Distress Eyes: Yes: Conjunctiva Clear Cardiovascular: Yes: Regular Rate and Rhythm, S1, S2 Respiratory: Yes: Rhonchi Gastrointestinal: Yes: Normal Bowel Sounds, Soft. No: Tenderness Edema: No Labs: CBC, BMP 12/11/18 05:55 12/11/18 05:55 INR, PTT INR 1.21 (0.83-1.09) H 12/10/18 02:41 Assessment/Plan MASS-LIKE RUL CONSOLIDATION WITH ? CAVITATION R/O NECROTIZING PNEUMONIA/ LUNG ABSCESS R/O AFB DZ R/O NEOPLASM AWAIT SPUTUM C/S AFB CONTINUE ZOSYN
[2018-12-13] MEDS: cloZAPine 100 MG TABLET PO SCH (21:36)
[2018-12-14] MEDS ORDERED: PIPERACILLIN/TAZOBACTAM 3.375 GM VIAL IVPB ONE ×4 (00:17→23:24)
[2018-12-14] MEDS ORDERED: DEXTROSE 5%-WATER - 50 ML IVPB ONE ×4 (00:17→23:24)
[2018-12-14] MEDS: PIPERACILLIN/TAZOB 3.375 GM 3.375 GM in DEXTROSE 5%-WATER - 50 ML IVPB SCH ×3 (02:00→18:06)
[2018-12-14] MEDS: DOCUSATE SODIUM 100 MG CAPSULE (FP) PO SCH ×3 (05:44→21:21)
[2018-12-14] MEDS: clonazePAM 0.5 MG TABLET PO SCH ×3 (06:04→21:22)
[2018-12-14] MEDS ORDERED: PT OWN MED DRAWER 7, Y5N ONE ×4 (10:04→21:26)
--- NOTE | 2018-12-14 10:05 | PN ---
Progress Note (short form) - Note Progress Note: PULMONARY Denies shortness of breath. +nonproductive cough. No fevers or chills. Quantiferon pending. Vital Signs Period Temp Pulse Resp BP Sys/Coughlin Pulse Ox Last 24 Hr 98.0 F-98.5 F 80-96 18-18 114-124/63-85 100-100 Gen: NAD at rest Heart: RRR Lung: decreased breath sounds at the bases Abd: soft, nontender Ext: no edema CBC, BMP 12/11/18 05:55 12/11/18 05:55 Active Medications Acetaminophen (Tylenol -) 650 mg PO Q4H PRN PRN Reason: FEVER Last Admin: 12/12/18 09:18 Dose: 650 mg Buspirone HCl (Buspar -) 30 mg PO BID [facility] Last Admin: 12/13/18 21:35 Dose: 30 mg Calcium Carbonate/Cholecalciferol (Os-Arturo 500+D -) 1 tab PO DAILY [facility] Last Admin: 12/13/18 10:24 Dose: 1 tab Clonazepam (Klonopin -) 1 mg PO AM [facility] Last Admin: 12/14/18 06:04 Dose: 1 mg Clonazepam (Klonopin -) 0.5 mg PO BID [facility] Last Admin: 12/13/18 21:35 Dose: 0.5 mg Clozapine (Clozaril -) 300 mg PO HS [facility] Last Admin: 12/13/18 21:36 Dose: 300 mg Desmopressin Acetate (Ddavp -) 0.4 mg PO BID [facility] Last Admin: 12/13/18 21:36 Dose: 0.4 mg Docusate Sodium (Colace -) 300 mg PO TID [facility] Last Admin: 12/14/18 05:44 Dose: 300 mg Enalapril Maleate (Vasotec -) 2.5 mg PO DAILY [facility] Last Admin: 12/13/18 10:24 Dose: 2.5 mg Enoxaparin Sodium (Lovenox -) 40 mg SQ DAILY [facility] Last Admin: 12/13/18 10:26 Dose: 40 mg Folic Acid (Folic Acid -) 1 mg PO DAILY [facility] Last Admin: 12/13/18 10:24 Dose: 1 mg Piperacillin Sod/Tazobactam (Sod 3.375 gm/ Dextrose) 50 mls @ 100 mls/hr IVPB Q8H-IV [facility]; Protocol Last Admin: 12/14/18 02:00 Dose: 100 mls/hr Lacosamide (Vimpat -) 50 mg PO BID [facility] Last Admin: 12/13/18 21:34 Dose: 50 mg Levothyroxine Sodium (Synthroid -) 150 mcg PO SuFrSa [facility] Last Admin: 12/13/18 06:26 Dose: 150 mcg Levothyroxine Sodium 100 mcg/ (Levothyroxine Sodium 75 mcg) 175 mcg PO MoWeTh [facility] Last Admin: 12/13/18 10:24 Dose: 25 mcg [place] Carbonate (Eskalith -) 450 mg PO BID [facility] Last Admin: 12/13/18 21:36 Dose: 450 mg Multivitamins/Minerals/Vitamin C (Tab-A-Vit -) 1 tab PO DAILY [facility] Last Admin: 12/13/18 10:25 Dose: 1 tab Pantoprazole Sodium (Protonix -) 20 mg PO DAILY [facility] Last Admin: 12/13/18 10:25 Dose: 20 mg Senna (Senna -) 2 tab PO BID [facility] Last Admin: 12/13/18 21:36 Dose: 2 tab Tamsulosin HCl (Flomax -) 0.4 mg PO DAILY@0830 [facility] Last Admin: 12/13/18 08:22 Dose: 0.4 mg A/P Lung Mass - Focal Pneumonia vs Abscess vs Malignancy Mental Retardation HTN Hypothyroidism - continue antibiotics - repeat CXR in AM - f/u quantiferon - if quantiferon negative, can complete antibiotics and repeat CT chest in 3-4 weeks - DVT prophylaxis
[2018-12-14] MEDS: TAMSULOSIN HCL 0.4 MG CAP PO SCH (10:15)
[2018-12-14] MEDS: busPIRone HCL 10 MG TABLET (FP) PO SCH ×2 (10:17→21:22)
[2018-12-14] MEDS: DESMOPRESSIN ACETATE 0.2 MG TABLET PO SCH ×2 (10:18→21:26)
[2018-12-14] MEDS: FOLIC ACID 1 MG TABLET (FP) PO SCH (10:18)
[2018-12-14] MEDS: LITHIUM CARBONATE 450 MG TABLET.ER PO SCH ×2 (10:18→21:23)
[2018-12-14] MEDS: CALCIUM 500MG/VIT-D 200 UNITS COMBO TABLET (FP) PO SCH (10:19)
[2018-12-14] MEDS: LACOSAMIDE 50 MG TABLET PO SCH ×2 (10:19→21:21)
[2018-12-14] MEDS: ENOXAPARIN NA (PORCINE) 40 MG/0.4 ML DISP.SYRIN SQ SCH (10:19)
[2018-12-14] MEDS: MULTIVITAMINS (DAILY MVI) TABLET (FP) PO SCH (10:19)
[2018-12-14] MEDS: PANTOPRAZOLE 20 MG TABLET (FP) PO SCH (10:19)
[2018-12-14] MEDS: ENALAPRIL MALEATE 2.5 MG TABLET (FP) PO SCH (10:20)
[2018-12-14] MEDS: SENNOSIDES 8.6MG TABLET (FP) PO SCH ×2 (10:20→21:22)
--- NOTE | 2018-12-14 12:33 | PN ---
Progress Note (short form) - Note Progress Note: pt is awake and alert no complaints dry cough+ no SOB On airborne isolation Vital Signs - 24 hr 12/13/18 12/13/18 12/13/18 14:56 18:34 21:00 Temperature 98.2 F 98.5 F Pulse Rate 80 90 Respiratory 18 18 Rate Blood Pressure 114/85 115/68 O2 Sat by Pulse 100 Oximetry (%) 12/14/18 12/14/18 06:00 10:00 Temperature 98.1 F 98.1 F Pulse Rate 83 88 Respiratory 18 18 Rate Blood Pressure 124/70 121/74 O2 Sat by Pulse Oximetry (%) Current Medications Generic Name Dose Route Start Last Admin Trade Name Freq PRN Reason Stop Dose Admin Acetaminophen 650 mg 12/10/18 13:10 12/12/18 09:18 Tylenol - PO 650 mg Q4H PRN Administration FEVER Buspirone HCl 30 mg 12/10/18 22:00 12/14/18 10:17 Buspar - PO 30 mg BID [facility] Administration Calcium Carbonate/Cholecalciferol 1 tab 12/11/18 10:00 12/14/18 10:19 Os-Arturo 500+D - PO 1 tab DAILY [facility] Administration Clonazepam 1 mg 12/13/18 08:00 12/14/18 06:04 Klonopin - PO 1 mg AM [facility] Administration Clonazepam 0.5 mg 12/12/18 16:00 12/14/18 10:18 Klonopin - PO 0.5 mg BID [facility] Administration Clozapine 300 mg 12/10/18 22:00 12/13/18 21:36 Clozaril - PO 300 mg HS [facility] Administration Desmopressin Acetate 0.4 mg 12/12/18 09:19 12/14/18 10:18 Ddavp - PO 0.4 mg BID [facility] Administration Docusate Sodium 300 mg 12/10/18 14:00 12/14/18 05:44 Colace - PO 300 mg TID [facility] Administration Enalapril Maleate 2.5 mg 12/11/18 10:00 12/14/18 10:20 Vasotec - PO 2.5 mg DAILY [facility] Administration Enoxaparin Sodium 40 mg 12/12/18 10:00 12/14/18 10:19 Lovenox - SQ 40 mg DAILY [facility] Administration Folic Acid 1 mg 12/11/18 10:00 12/14/18 10:18 Folic Acid - PO 1 mg DAILY [facility] Administration Piperacillin Sod/Tazobactam 50 mls @ 100 mls/hr 12/10/18 18:00 12/14/18 10:20 Sod 3.375 gm/ Dextrose IVPB 100 mls/hr Q8H-IV [facility] Administration Protocol Lacosamide 50 mg 12/10/18 22:00 12/14/18 10:19 Vimpat - PO 50 mg BID [facility] Administration Levothyroxine Sodium 150 mcg 12/13/18 07:00 12/13/18 06:26 Synthroid - PO 150 mcg SuFrSa [facility] Administration Levothyroxine Sodium 100 mcg/ 175 mcg 12/13/18 09:40 12/13/18 10:24 Levothyroxine Sodium 75 mcg PO 25 mcg MoWeTh [facility] Administration [place] Carbonate 450 mg 12/10/18 22:00 12/14/18 10:18 Eskalith - PO 450 mg BID [facility] Administration Multivitamins/Minerals/Vitamin C 1 tab 12/11/18 10:00 12/14/18 10:19 Tab-A-Vit - PO 1 tab DAILY [facility] Administration Pantoprazole Sodium 20 mg 12/11/18 10:00 12/14/18 10:19 Protonix - PO 20 mg DAILY [facility] Administration Senna 2 tab 12/10/18 22:00 12/14/18 10:20 Senna - PO 2 tab BID [facility] Administration Tamsulosin HCl 0.4 mg 12/11/18 08:30 12/14/18 10:15 Flomax - PO 0.4 mg DAILY@0830 [facility] Administration Laboratory Results - last 24 hr 12/11/18 12/12/18 05:55 09:35 [place] 0.8 0.7 No pallor S1 S2 RRR lungs ronchi+ Abd- soft, NT, ND No edema PLAN Pneumonia vs malignancy vs TB on airborne isolation till TB ruled out IV antibiotics Nebs Spoke with ID pulmonary eval noted unable to get sputum for studies Will need to repeat CT next week DVT prophylaxis-- Lovenox sc Problem List - Problems (1) Lung mass Code(s): R91.8 - OTHER NONSPECIFIC ABNORMAL FINDING OF LUNG FIELD (2) Pneumonia Code(s): J18.9 - PNEUMONIA, UNSPECIFIED ORGANISM (3) Psychiatric disorder Code(s): F99 - MENTAL DISORDER, NOT OTHERWISE SPECIFIED (4) Head injury Code(s): S09.90XA - UNSPECIFIED INJURY OF HEAD, INITIAL ENCOUNTER Qualifiers: Encounter type: initial encounter Qualified Code(s): S09.90XA - Unspecified injury of head, initial encounter (5) Laceration of scalp Code(s): S01.01XA - LACERATION WITHOUT FOREIGN BODY OF SCALP, INITIAL ENCOUNTER Qualifiers: Encounter type: initial encounter Qualified Code(s): S01.01XA - Laceration without foreign body of scalp, initial encounter (6) Mental retardation Code(s): F79 - UNSPECIFIED INTELLECTUAL DISABILITIES
[2018-12-14] MEDS: DIVALPROEX SODIUM 500 MG TABLET E.C. PO SCH ×2 (18:06→21:22)
[2018-12-14] MEDS: cloZAPine 100 MG TABLET PO SCH (21:22)
[2018-12-15] MEDS: PIPERACILLIN/TAZOB 3.375 GM 3.375 GM in DEXTROSE 5%-WATER - 50 ML IVPB SCH ×3 (02:29→18:00)
[2018-12-15] MEDS: DIVALPROEX SODIUM 500 MG TABLET E.C. PO SCH ×3 (05:59→21:29)
[2018-12-15] MEDS: DOCUSATE SODIUM 100 MG CAPSULE (FP) PO SCH ×3 (06:00→21:24)
[2018-12-15] MEDS: clonazePAM 0.5 MG TABLET PO SCH ×3 (06:12→21:27)
[2018-12-15] MEDS ORDERED: LEVOTHYROXINE NA 150 MCG TABLET PO SCH (07:57)
[2018-12-15] MEDS ORDERED: LEVOTHYROXINE 100 MCG, LEVOTHYROXINE 75 MCG PO SCH (07:58)
[2018-12-15] MEDS ORDERED: LEVOTHYROXINE NA 100 MCG TABLET (FP) ONE (08:01)
[2018-12-15] MEDS ORDERED: LEVOTHYROXINE NA 25 MCG TABLET (FP) ONE (08:02)
[2018-12-15] MEDS: LEVOTHYROXINE 100 MCG, LEVOTHYROXINE 75 MCG PO SCH (08:06)
[2018-12-15] MEDS: TAMSULOSIN HCL 0.4 MG CAP PO SCH (08:06)
[2018-12-15] MEDS ORDERED: PIPERACILLIN/TAZOBACTAM 3.375 GM VIAL IVPB ONE ×2 (09:05→17:47)
[2018-12-15] MEDS ORDERED: DEXTROSE 5%-WATER - 50 ML IVPB ONE ×2 (09:05→17:47)
[2018-12-15] MEDS ORDERED: PT OWN MED DRAWER 7, Y5N ONE ×2 (09:05→13:01)
[2018-12-15] MEDS: busPIRone HCL 10 MG TABLET (FP) PO SCH ×2 (09:13→21:28)
[2018-12-15] MEDS: MULTIVITAMINS (DAILY MVI) TABLET (FP) PO SCH (09:13)
[2018-12-15] MEDS: ENOXAPARIN NA (PORCINE) 40 MG/0.4 ML DISP.SYRIN SQ SCH (09:13)
[2018-12-15] MEDS: CALCIUM 500MG/VIT-D 200 UNITS COMBO TABLET (FP) PO SCH (09:13)
[2018-12-15] MEDS: LITHIUM CARBONATE 450 MG TABLET.ER PO SCH ×2 (09:14→21:31)
[2018-12-15] MEDS: DESMOPRESSIN ACETATE 0.2 MG TABLET PO SCH ×2 (09:14→21:29)
[2018-12-15] MEDS: ENALAPRIL MALEATE 2.5 MG TABLET (FP) PO SCH (09:14)
[2018-12-15] MEDS: PANTOPRAZOLE 20 MG TABLET (FP) PO SCH (09:14)
[2018-12-15] MEDS: LACOSAMIDE 50 MG TABLET PO SCH ×2 (09:14→21:24)
[2018-12-15] MEDS: SENNOSIDES 8.6MG TABLET (FP) PO SCH ×2 (09:14→21:24)
[2018-12-15] MEDS: FOLIC ACID 1 MG TABLET (FP) PO SCH (09:14)
--- NOTE | 2018-12-15 11:59 | PN ---
Progress Note (short form) - Note Progress Note: pt is awake and alert no complaints dry cough+ no SOB On airborne isolation Vital Signs - 24 hr 12/14/18 12/14/18 12/14/18 14:13 16:30 21:00 Temperature 98.1 F 98.2 F Pulse Rate 89 101 H Respiratory 16 20 Rate Blood Pressure 104/61 115/72 O2 Sat by Pulse 100 Oximetry (%) 12/14/18 12/15/18 12/15/18 22:00 06:00 10:00 Temperature 98.0 F 97.4 F L 97.9 F Pulse Rate 88 84 89 Respiratory 18 18 20 Rate Blood Pressure 118/67 136/79 119/69 O2 Sat by Pulse Oximetry (%) Current Medications Generic Name Dose Route Start Last Admin Trade Name Freq PRN Reason Stop Dose Admin Acetaminophen 650 mg 12/10/18 13:10 12/12/18 09:18 Tylenol - PO 650 mg Q4H PRN Administration FEVER Buspirone HCl 30 mg 12/10/18 22:00 12/15/18 09:13 Buspar - PO 30 mg BID [facility] Administration Calcium Carbonate/Cholecalciferol 1 tab 12/11/18 10:00 12/15/18 09:13 Os-Arturo 500+D - PO 1 tab DAILY [facility] Administration Clonazepam 1 mg 12/13/18 08:00 12/15/18 06:12 Klonopin - PO 1 mg AM [facility] Administration Clonazepam 0.5 mg 12/12/18 16:00 12/15/18 09:14 Klonopin - PO 0.5 mg BID [facility] Administration Clozapine 300 mg 12/10/18 22:00 12/14/18 21:22 Clozaril - PO 300 mg HS [facility] Administration Desmopressin Acetate 0.4 mg 12/12/18 09:19 12/15/18 09:14 Ddavp - PO 0.4 mg BID [facility] Administration Divalproex Sodium 500 mg 12/14/18 16:45 12/15/18 05:59 Depakote - PO 500 mg TID [facility] Administration Docusate Sodium 300 mg 12/10/18 14:00 12/15/18 06:00 Colace - PO 300 mg TID [facility] Administration Enalapril Maleate 2.5 mg 12/11/18 10:00 12/15/18 09:14 Vasotec - PO 2.5 mg DAILY [facility] Administration Enoxaparin Sodium 40 mg 12/12/18 10:00 12/15/18 09:13 Lovenox - SQ 40 mg DAILY [facility] Administration Folic Acid 1 mg 12/11/18 10:00 12/15/18 09:14 Folic Acid - PO 1 mg DAILY [facility] Administration Piperacillin Sod/Tazobactam 50 mls @ 100 mls/hr 12/10/18 18:00 12/15/18 09:10 Sod 3.375 gm/ Dextrose IVPB 100 mls/hr Q8H-IV [facility] Administration Protocol Lacosamide 50 mg 12/10/18 22:00 12/15/18 09:14 Vimpat - PO 50 mg BID [facility] Administration Levothyroxine Sodium 150 mcg 12/15/18 07:57 Synthroid - PO SuFrSa@0700 [facility] Levothyroxine Sodium 100 mcg/ 175 mcg 12/15/18 08:00 12/15/18 08:06 Levothyroxine Sodium 75 mcg PO 175 mcg MoWeTh@0700 [facility] Administration [place] Carbonate 450 mg 12/10/18 22:00 12/15/18 09:14 Eskalith - PO 450 mg BID [facility] Administration Multivitamins/Minerals/Vitamin C 1 tab 12/11/18 10:00 12/15/18 09:13 Tab-A-Vit - PO 1 tab DAILY [facility] Administration Pantoprazole Sodium 20 mg 12/11/18 10:00 12/15/18 09:14 Protonix - PO 20 mg DAILY [facility] Administration Senna 2 tab 12/10/18 22:00 12/15/18 09:14 Senna - PO 2 tab BID [facility] Administration Tamsulosin HCl 0.4 mg 12/11/18 08:30 12/15/18 08:06 Flomax - PO 0.4 mg DAILY@0830 [facility] Administration Laboratory Results - last 24 hr 12/15/18 06:11 POC Glucometer 336 No pallor S1 S2 RRR lungs ronchi+ Abd- soft, NT, ND No edema PLAN Pneumonia vs malignancy vs TB on airborne isolation till TB ruled out- quantiferon tb test pending marah removed today IV antibiotics Nebs unable to get sputum for studies Will need to repeat CT next week DVT prophylaxis-- Lovenox sc Problem List - Problems (1) Lung mass Code(s): R91.8 - OTHER NONSPECIFIC ABNORMAL FINDING OF LUNG FIELD (2) Pneumonia Code(s): J18.9 - PNEUMONIA, UNSPECIFIED ORGANISM (3) Psychiatric disorder Code(s): F99 - MENTAL DISORDER, NOT OTHERWISE SPECIFIED (4) Head injury Code(s): S09.90XA - UNSPECIFIED INJURY OF HEAD, INITIAL ENCOUNTER Qualifiers: Encounter type: initial encounter Qualified Code(s): S09.90XA - Unspecified injury of head, initial encounter (5) Laceration of scalp Code(s): S01.01XA - LACERATION WITHOUT FOREIGN BODY OF SCALP, INITIAL ENCOUNTER Qualifiers: Encounter type: initial encounter Qualified Code(s): S01.01XA - Laceration without foreign body of scalp, initial encounter (6) Mental retardation Code(s): F79 - UNSPECIFIED INTELLECTUAL DISABILITIES
--- NOTE | 2018-12-15 14:37 | PN ---
Progress Note, Physician History of Present Illness: PULMONARY ALERT,NO DISTRESS,MIN COUGH,-SOB - Current Medication List Current Medications: Active Medications Acetaminophen (Tylenol -) 650 mg PO Q4H PRN PRN Reason: FEVER Last Admin: 12/12/18 09:18 Dose: 650 mg Buspirone HCl (Buspar -) 30 mg PO BID [facility] Last Admin: 12/15/18 09:13 Dose: 30 mg Calcium Carbonate/Cholecalciferol (Os-Arturo 500+D -) 1 tab PO DAILY [facility] Last Admin: 12/15/18 09:13 Dose: 1 tab Clonazepam (Klonopin -) 1 mg PO AM [facility] Last Admin: 12/15/18 06:12 Dose: 1 mg Clonazepam (Klonopin -) 0.5 mg PO BID [facility] Last Admin: 12/15/18 09:14 Dose: 0.5 mg Clozapine (Clozaril -) 300 mg PO HS [facility] Last Admin: 12/14/18 21:22 Dose: 300 mg Desmopressin Acetate (Ddavp -) 0.4 mg PO BID [facility] Last Admin: 12/15/18 09:14 Dose: 0.4 mg Divalproex Sodium (Depakote -) 500 mg PO TID [facility] Last Admin: 12/15/18 13:09 Dose: 500 mg Docusate Sodium (Colace -) 300 mg PO TID [facility] Last Admin: 12/15/18 13:09 Dose: 300 mg Enalapril Maleate (Vasotec -) 2.5 mg PO DAILY [facility] Last Admin: 12/15/18 09:14 Dose: 2.5 mg Enoxaparin Sodium (Lovenox -) 40 mg SQ DAILY [facility] Last Admin: 12/15/18 09:13 Dose: 40 mg Folic Acid (Folic Acid -) 1 mg PO DAILY [facility] Last Admin: 12/15/18 09:14 Dose: 1 mg Piperacillin Sod/Tazobactam (Sod 3.375 gm/ Dextrose) 50 mls @ 100 mls/hr IVPB Q8H-IV [facility]; Protocol Last Admin: 12/15/18 09:10 Dose: 100 mls/hr Lacosamide (Vimpat -) 50 mg PO BID [facility] Last Admin: 12/15/18 09:14 Dose: 50 mg Levothyroxine Sodium (Synthroid -) 150 mcg PO SuFrSa@0700 [facility] Levothyroxine Sodium 100 mcg/ (Levothyroxine Sodium 75 mcg) 175 mcg PO MoWeTh@ 0700 [facility] Last Admin: 12/15/18 08:06 Dose: 175 mcg [place] Carbonate (Eskalith -) 450 mg PO BID [facility] Last Admin: 12/15/18 09:14 Dose: 450 mg Multivitamins/Minerals/Vitamin C (Tab-A-Vit -) 1 tab PO DAILY [facility] Last Admin: 12/15/18 09:13 Dose: 1 tab Pantoprazole Sodium (Protonix -) 20 mg PO DAILY [facility] Last Admin: 12/15/18 09:14 Dose: 20 mg Senna (Senna -) 2 tab PO BID [facility] Last Admin: 12/15/18 09:14 Dose: 2 tab Tamsulosin HCl (Flomax -) 0.4 mg PO DAILY@829 [facility] Last Admin: 12/15/18 08:06 Dose: 0.4 mg - Objective Vital Signs: Vital Signs Temperature 97.9 F 12/15/18 10:00 Pulse Rate 89 12/15/18 10:00 Respiratory Rate 20 12/15/18 10:00 Blood Pressure 119/69 12/15/18 10:00 O2 Sat by Pulse Oximetry (%) 100 12/15/18 09:00 Constitutional: Yes: Calm, Thin Eyes: Yes: WNL HENT: Yes: WNL Neck: Yes: WNL Cardiovascular: Yes: Regular Rate and Rhythm, S1, S2 Respiratory: Yes: CTA Bilaterally Gastrointestinal: Yes: Normal Bowel Sounds, Soft Extremities: Yes: WNL Edema: No Labs: INR, PTT Problem List - Problems (1) Lung mass Code(s): R91.8 - OTHER NONSPECIFIC ABNORMAL FINDING OF LUNG FIELD (2) Pneumonia Code(s): J18.9 - PNEUMONIA, UNSPECIFIED ORGANISM (3) Psychiatric disorder Code(s): F99 - MENTAL DISORDER, NOT OTHERWISE SPECIFIED (4) Hypertension Code(s): I10 - ESSENTIAL (PRIMARY) HYPERTENSION (5) Hypothyroidism Code(s): E03.9 - HYPOTHYROIDISM, UNSPECIFIED (6) Mental retardation Code(s): F79 - UNSPECIFIED INTELLECTUAL DISABILITIES Assessment/Plan A/P Lung Mass - Focal Pneumonia vs Abscess vs Malignancy Mental Retardation HTN Hypothyroidism - continue antibiotics - complete antibiotics and repeat CT chest in 3-4 weeks - DVT prophylaxis DR MANUEL
--- NOTE | 2018-12-15 17:19 | PN ---
Progress Note, Physician History of Present Illness: AWAKE, ALERT C/O DRY COUGH UNABLE TO GIVE SPUTUM SPECIMEN DENIES CHEST PAIN/ DYSPNEA AFEBRILE WBC WNL HIV (-) - Current Medication List Current Medications: Active Medications Acetaminophen (Tylenol -) 650 mg PO Q4H PRN PRN Reason: FEVER Last Admin: 12/12/18 09:18 Dose: 650 mg Buspirone HCl (Buspar -) 30 mg PO BID [facility] Last Admin: 12/15/18 09:13 Dose: 30 mg Calcium Carbonate/Cholecalciferol (Os-Arturo 500+D -) 1 tab PO DAILY [facility] Last Admin: 12/15/18 09:13 Dose: 1 tab Clonazepam (Klonopin -) 1 mg PO AM [facility] Last Admin: 12/15/18 06:12 Dose: 1 mg Clonazepam (Klonopin -) 0.5 mg PO BID [facility] Last Admin: 12/15/18 09:14 Dose: 0.5 mg Clozapine (Clozaril -) 300 mg PO HS [facility] Last Admin: 12/14/18 21:22 Dose: 300 mg Desmopressin Acetate (Ddavp -) 0.4 mg PO BID [facility] Last Admin: 12/15/18 09:14 Dose: 0.4 mg Divalproex Sodium (Depakote -) 500 mg PO TID [facility] Last Admin: 12/15/18 13:09 Dose: 500 mg Docusate Sodium (Colace -) 300 mg PO TID [facility] Last Admin: 12/15/18 13:09 Dose: 300 mg Enalapril Maleate (Vasotec -) 2.5 mg PO DAILY [facility] Last Admin: 12/15/18 09:14 Dose: 2.5 mg Enoxaparin Sodium (Lovenox -) 40 mg SQ DAILY [facility] Last Admin: 12/15/18 09:13 Dose: 40 mg Folic Acid (Folic Acid -) 1 mg PO DAILY [facility] Last Admin: 12/15/18 09:14 Dose: 1 mg Piperacillin Sod/Tazobactam (Sod 3.375 gm/ Dextrose) 50 mls @ 100 mls/hr IVPB Q8H-IV [facility]; Protocol Last Admin: 12/15/18 09:10 Dose: 100 mls/hr Lacosamide (Vimpat -) 50 mg PO BID [facility] Last Admin: 12/15/18 09:14 Dose: 50 mg Levothyroxine Sodium (Synthroid -) 150 mcg PO SuFrSa@0700 [facility] Levothyroxine Sodium 100 mcg/ (Levothyroxine Sodium 75 mcg) 175 mcg PO MoWeTh@ 0700 [facility] Last Admin: 12/15/18 08:06 Dose: 175 mcg [place] Carbonate (Eskalith -) 450 mg PO BID [facility] Last Admin: 12/15/18 09:14 Dose: 450 mg Multivitamins/Minerals/Vitamin C (Tab-A-Vit -) 1 tab PO DAILY [facility] Last Admin: 12/15/18 09:13 Dose: 1 tab Pantoprazole Sodium (Protonix -) 20 mg PO DAILY [facility] Last Admin: 12/15/18 09:14 Dose: 20 mg Senna (Senna -) 2 tab PO BID [facility] Last Admin: 12/15/18 09:14 Dose: 2 tab Tamsulosin HCl (Flomax -) 0.4 mg PO DAILY@0830 [facility] Last Admin: 12/15/18 08:06 Dose: 0.4 mg - Objective Vital Signs: Vital Signs Temperature 98.0 F 12/15/18 14:50 Pulse Rate 84 12/15/18 14:50 Respiratory Rate 18 12/15/18 14:50 Blood Pressure 135/70 12/15/18 14:50 O2 Sat by Pulse Oximetry (%) 100 12/15/18 09:00 Constitutional: Yes: No Distress Cardiovascular: Yes: Regular Rate and Rhythm, S1, S2 Respiratory: Yes: CTA Bilaterally Gastrointestinal: Yes: Normal Bowel Sounds, Soft. No: Tenderness Edema: No Labs: CBC, BMP 12/11/18 05:55 12/11/18 05:55 INR, PTT INR 1.21 (0.83-1.09) H 12/10/18 02:41 Assessment/Plan MASS-LIKE RUL CONSOLIDATION WITH ? CAVITATION R/O NECROTIZING PNEUMONIA/ LUNG ABSCESS R/O AFB DZ R/O NEOPLASM AWAIT SPUTUM C/S AFB CONTINUE ZOSYN
[2018-12-15] MEDS: cloZAPine 100 MG TABLET PO SCH (21:28)
[2018-12-16] MEDS ORDERED: DEXTROSE 5%-WATER - 50 ML IVPB ONE ×3 (01:17→17:09)
[2018-12-16] MEDS ORDERED: PIPERACILLIN/TAZOBACTAM 3.375 GM VIAL IVPB ONE ×3 (01:17→17:08)
[2018-12-16] MEDS: PIPERACILLIN/TAZOB 3.375 GM 3.375 GM in DEXTROSE 5%-WATER - 50 ML IVPB SCH ×3 (01:32→17:18)
[2018-12-16] MEDS: DOCUSATE SODIUM 100 MG CAPSULE (FP) PO SCH ×3 (05:19→21:39)
[2018-12-16] MEDS: DIVALPROEX SODIUM 500 MG TABLET E.C. PO SCH ×3 (05:20→21:41)
[2018-12-16] MEDS ORDERED: LEVOTHYROXINE NA 100 MCG TABLET (FP) ONE (06:41)
[2018-12-16] MEDS ORDERED: LEVOTHYROXINE NA 25 MCG TABLET (FP) ONE (06:41)
[2018-12-16] MEDS: clonazePAM 0.5 MG TABLET PO SCH ×3 (06:47→21:40)
[2018-12-16] MEDS: LEVOTHYROXINE 100 MCG, LEVOTHYROXINE 75 MCG PO SCH (06:47)
[2018-12-16] MEDS: TAMSULOSIN HCL 0.4 MG CAP PO SCH (08:48)
--- NOTE | 2018-12-16 09:51 | PN ---
Progress Note (short form) - Note Progress Note: PULMONARY Quantiferon negative. Denies shortness of breath. +nonproductive cough. No fevers or chills. Vital Signs Period Temp Pulse Resp BP Sys/[place]lin Pulse Ox Last 24 Hr 97.5 F-98.0 F 80-117 16-20 119-136/69-90 100 Gen: NAD at rest Heart: RRR Lung: decreased breath sounds at the bases Abd: soft, nontender Ext: no edema CBC, BMP 12/11/18 05:55 12/11/18 05:55 Active Medications Acetaminophen (Tylenol -) 650 mg PO Q4H PRN PRN Reason: FEVER Last Admin: 12/12/18 09:18 Dose: 650 mg Buspirone HCl (Buspar -) 30 mg PO BID [facility] Last Admin: 12/15/18 21:28 Dose: 30 mg Calcium Carbonate/Cholecalciferol (Os-Arturo 500+D -) 1 tab PO DAILY [facility] Last Admin: 12/15/18 09:13 Dose: 1 tab Clonazepam (Klonopin -) 1 mg PO AM [facility] Last Admin: 12/16/18 06:47 Dose: 1 mg Clonazepam (Klonopin -) 0.5 mg PO BID [facility] Last Admin: 12/15/18 21:27 Dose: 0.5 mg Clozapine (Clozaril -) 300 mg PO HS [facility] Last Admin: 12/15/18 21:28 Dose: 300 mg Desmopressin Acetate (Ddavp -) 0.4 mg PO BID [facility] Last Admin: 12/15/18 21:29 Dose: 0.4 mg Divalproex Sodium (Depakote -) 500 mg PO TID [facility] Last Admin: 12/16/18 05:20 Dose: 500 mg Docusate Sodium (Colace -) 300 mg PO TID [facility] Last Admin: 12/16/18 05:19 Dose: 300 mg Enalapril Maleate (Vasotec -) 2.5 mg PO DAILY [facility] Last Admin: 12/15/18 09:14 Dose: 2.5 mg Enoxaparin Sodium (Lovenox -) 40 mg SQ DAILY [facility] Last Admin: 12/15/18 09:13 Dose: 40 mg Folic Acid (Folic Acid -) 1 mg PO DAILY [facility] Last Admin: 12/15/18 09:14 Dose: 1 mg Piperacillin Sod/Tazobactam (Sod 3.375 gm/ Dextrose) 50 mls @ 100 mls/hr IVPB Q8H-IV [facility]; Protocol Last Admin: 12/16/18 01:32 Dose: 100 mls/hr Lacosamide (Vimpat -) 50 mg PO BID [facility] Last Admin: 12/15/18 21:24 Dose: 50 mg Levothyroxine Sodium 100 mcg/ (Levothyroxine Sodium 75 mcg) 175 mcg PO MoWeTh@ 0700 [facility] Last Admin: 12/16/18 06:47 Dose: 175 mcg Levothyroxine Sodium (Synthroid -) 150 mcg PO SuFrSa@0700 [facility] [place] Carbonate (Eskalith -) 450 mg PO BID [facility] Last Admin: 12/15/18 21:31 Dose: 450 mg Multivitamins/Minerals/Vitamin C (Tab-A-Vit -) 1 tab PO DAILY [facility] Last Admin: 12/15/18 09:13 Dose: 1 tab Pantoprazole Sodium (Protonix -) 20 mg PO DAILY [facility] Last Admin: 12/15/18 09:14 Dose: 20 mg Senna (Senna -) 2 tab PO BID [facility] Last Admin: 12/15/18 21:24 Dose: 2 tab Tamsulosin HCl (Flomax -) 0.4 mg PO DAILY@0830 [facility] Last Admin: 12/16/18 08:48 Dose: 0.4 mg A/P Lung Mass - Focal Pneumonia vs Abscess vs Malignancy Mental Retardation HTN Hypothyroidism - can complete antibiotics and repeat CT chest in 3-4 weeks - DVT prophylaxis
[2018-12-16] MEDS ORDERED: PT OWN MED DRAWER 7, Y5N ONE (10:07)
[2018-12-16] MEDS: busPIRone HCL 10 MG TABLET (FP) PO SCH ×2 (10:12→21:41)
[2018-12-16] MEDS: DESMOPRESSIN ACETATE 0.2 MG TABLET PO SCH ×2 (10:16→21:42)
[2018-12-16] MEDS: LITHIUM CARBONATE 450 MG TABLET.ER PO SCH ×2 (10:16→21:43)
[2018-12-16] MEDS: FOLIC ACID 1 MG TABLET (FP) PO SCH (10:17)
[2018-12-16] MEDS: CALCIUM 500MG/VIT-D 200 UNITS COMBO TABLET (FP) PO SCH (10:18)
[2018-12-16] MEDS: PANTOPRAZOLE 20 MG TABLET (FP) PO SCH (10:18)
[2018-12-16] MEDS: SENNOSIDES 8.6MG TABLET (FP) PO SCH ×2 (10:18→21:38)
[2018-12-16] MEDS: ENALAPRIL MALEATE 2.5 MG TABLET (FP) PO SCH (10:19)
[2018-12-16] MEDS: LACOSAMIDE 50 MG TABLET PO SCH ×2 (10:19→21:38)
[2018-12-16] MEDS: MULTIVITAMINS (DAILY MVI) TABLET (FP) PO SCH (10:19)
[2018-12-16] MEDS: ENOXAPARIN NA (PORCINE) 40 MG/0.4 ML DISP.SYRIN SQ SCH (10:20)
--- NOTE | 2018-12-16 11:37 | PN ---
Progress Note (short form) - Note Progress Note: pt is awake and alert no complaints no coughing no SOB On airborne isolation Vital Signs - 24 hr 12/15/18 12/15/18 12/15/18 14:50 16:30 20:45 Temperature 98.0 F 97.5 F L 98 F Pulse Rate 84 117 H 80 Respiratory 18 20 16 Rate Blood Pressure 135/70 136/90 124/71 O2 Sat by Pulse Oximetry (%) 12/15/18 12/16/18 21:00 07:14 Temperature 98 F Pulse Rate 100 H Respiratory 20 Rate Blood Pressure 132/86 O2 Sat by Pulse 100 Oximetry (%) Current Medications Generic Name Dose Route Start Last Admin Trade Name Freq PRN Reason Stop Dose Admin Acetaminophen 650 mg 12/10/18 13:10 12/12/18 09:18 Tylenol - PO 650 mg Q4H PRN Administration FEVER Buspirone HCl 30 mg 12/10/18 22:00 12/16/18 10:12 Buspar - PO 30 mg BID [facility] Administration Calcium Carbonate/Cholecalciferol 1 tab 12/11/18 10:00 12/16/18 10:18 Os-Arturo 500+D - PO 1 tab DAILY [facility] Administration Clonazepam 1 mg 12/13/18 08:00 12/16/18 06:47 Klonopin - PO 1 mg AM [facility] Administration Clonazepam 0.5 mg 12/12/18 16:00 12/16/18 10:18 Klonopin - PO 0.5 mg BID [facility] Administration Clozapine 300 mg 12/10/18 22:00 12/15/18 21:28 Clozaril - PO 300 mg HS [facility] Administration Desmopressin Acetate 0.4 mg 12/12/18 09:19 12/16/18 10:16 Ddavp - PO 0.4 mg BID [facility] Administration Divalproex Sodium 500 mg 12/14/18 16:45 12/16/18 05:20 Depakote - PO 500 mg TID [facility] Administration Docusate Sodium 300 mg 12/10/18 14:00 12/16/18 05:19 Colace - PO 300 mg TID [facility] Administration Enalapril Maleate 2.5 mg 12/11/18 10:00 12/16/18 10:19 Vasotec - PO 2.5 mg DAILY [facility] Administration Enoxaparin Sodium 40 mg 12/12/18 10:00 12/16/18 10:20 Lovenox - SQ 40 mg DAILY [facility] Administration Folic Acid 1 mg 12/11/18 10:00 12/16/18 10:17 Folic Acid - PO 1 mg DAILY [facility] Administration Piperacillin Sod/Tazobactam 50 mls @ 100 mls/hr 12/10/18 18:00 12/16/18 10:19 Sod 3.375 gm/ Dextrose IVPB 100 mls/hr Q8H-IV [facility] Administration Protocol Lacosamide 50 mg 12/10/18 22:00 12/16/18 10:19 Vimpat - PO 50 mg BID [facility] Administration Levothyroxine Sodium 100 mcg/ 175 mcg 12/15/18 08:00 12/16/18 06:47 Levothyroxine Sodium 75 mcg PO 175 mcg MoWeTh@0700 [facility] Administration Levothyroxine Sodium 150 mcg 12/17/18 07:00 Synthroid - PO SuFrSa@0700 [facility] Carbonate 450 mg 12/10/18 22:00 12/16/18 10:16 Eskalith - PO 450 mg BID [facility] Administration Multivitamins/Minerals/Vitamin C 1 tab 12/11/18 10:00 12/16/18 10:19 Tab-A-Vit - PO 1 tab DAILY [facility] Administration Pantoprazole Sodium 20 mg 12/11/18 10:00 12/16/18 10:18 Protonix - PO 20 mg DAILY [facility] Administration Senna 2 tab 12/10/18 22:00 12/16/18 10:18 Senna - PO 2 tab BID [facility] Administration Tamsulosin HCl 0.4 mg 12/11/18 08:30 12/16/18 08:48 Flomax - PO 0.4 mg DAILY@0830 [facility] Administration Laboratory Results - last 24 hr 12/11/18 05:55 TB Test (QFT) Nil 0.03 TB Test (QFT) Mitogen 5.27 TB Test (QFT) Antigen 0.06 TB Test (QFT) Negative TB Positive Criteria No pallor S1 S2 RRR lungs ronchi+ Abd- soft, NT, ND No edema PLAN Pneumonia vs malignancy vs TB on airborne isolation till TB ruled out- quantiferon tb test negative IV antibiotics per ID Nebs unable to get sputum for studies Will need to repeat CT in 3 weeks DVT prophylaxis-- Lovenox sc Problem List - Problems (1) Lung mass Code(s): R91.8 - OTHER NONSPECIFIC ABNORMAL FINDING OF LUNG FIELD (2) Pneumonia Code(s): J18.9 - PNEUMONIA, UNSPECIFIED ORGANISM (3) Psychiatric disorder Code(s): F99 - MENTAL DISORDER, NOT OTHERWISE SPECIFIED (4) Head injury Code(s): S09.90XA - UNSPECIFIED INJURY OF HEAD, INITIAL ENCOUNTER Qualifiers: Encounter type: initial encounter Qualified Code(s): S09.90XA - Unspecified injury of head, initial encounter (5) Laceration of scalp Code(s): S01.01XA - LACERATION WITHOUT FOREIGN BODY OF SCALP, INITIAL ENCOUNTER Qualifiers: Encounter type: initial encounter Qualified Code(s): S01.01XA - Laceration without foreign body of scalp, initial encounter (6) Mental retardation Code(s): F79 - UNSPECIFIED INTELLECTUAL DISABILITIES
[2018-12-16] MEDS: cloZAPine 100 MG TABLET PO SCH (21:42)
[2018-12-17] MEDS ORDERED: DEXTROSE 5%-WATER - 50 ML IVPB ONE ×2 (01:27→10:59)
[2018-12-17] MEDS ORDERED: PIPERACILLIN/TAZOBACTAM 3.375 GM VIAL IVPB ONE ×2 (01:27→10:59)
[2018-12-17] MEDS: PIPERACILLIN/TAZOB 3.375 GM 3.375 GM in DEXTROSE 5%-WATER - 50 ML IVPB SCH ×2 (02:12→11:03)
[2018-12-17] MEDS: LEVOTHYROXINE NA 75 MCG TABLET (FP) PO SCH (06:05)
[2018-12-17] MEDS: DOCUSATE SODIUM 100 MG CAPSULE (FP) PO SCH ×3 (06:05→21:24)
[2018-12-17] MEDS: clonazePAM 0.5 MG TABLET PO SCH ×3 (06:06→21:26)
[2018-12-17] MEDS: DIVALPROEX SODIUM 500 MG TABLET E.C. PO SCH ×3 (06:06→21:25)
--- NOTE | 2018-12-17 09:58 | PN ---
Progress Note (short form) - Note Progress Note: pt seen/ examined chart reviewed awake/ comfortable no complains offered Vital Signs Temp 97.6 F 12/17/18 06:00 Pulse 104 H 12/17/18 06:00 Resp 18 12/17/18 06:00 BP 124/58 L 12/17/18 06:00 Pulse Ox 100 12/16/18 21:00 Intake & Output 12/16/18 12/16/18 12/17/18 11:59 23:59 11:59 Intake Total 680 300 Balance 680 300 Intake: IVPB 50 100 Oral 630 200 Other: Voiding Method Toilet Toilet # Unmeasured Voids Void 1 2 Bowel Movement No Active Medications Acetaminophen (Tylenol -) 650 mg PO Q4H PRN PRN Reason: FEVER Last Admin: 12/12/18 09:18 Dose: 650 mg Buspirone HCl (Buspar -) 30 mg PO BID [facility] Last Admin: 12/16/18 21:41 Dose: 30 mg Calcium Carbonate/Cholecalciferol (Os-Arturo 500+D -) 1 tab PO DAILY [facility] Last Admin: 12/16/18 10:18 Dose: 1 tab Clonazepam (Klonopin -) 1 mg PO AM [facility] Last Admin: 12/17/18 06:06 Dose: 1 mg Clonazepam (Klonopin -) 0.5 mg PO BID [facility] Last Admin: 12/16/18 21:40 Dose: 0.5 mg Clozapine (Clozaril -) 300 mg PO HS [facility] Last Admin: 12/16/18 21:42 Dose: 300 mg Desmopressin Acetate (Ddavp -) 0.4 mg PO BID [facility] Last Admin: 12/16/18 21:42 Dose: 0.4 mg Divalproex Sodium (Depakote -) 500 mg PO TID [facility] Last Admin: 12/17/18 06:06 Dose: 500 mg Docusate Sodium (Colace -) 300 mg PO TID [facility] Last Admin: 12/17/18 06:05 Dose: 300 mg Enalapril Maleate (Vasotec -) 2.5 mg PO DAILY [facility] Last Admin: 12/16/18 10:19 Dose: 2.5 mg Enoxaparin Sodium (Lovenox -) 40 mg SQ DAILY [facility] Last Admin: 12/16/18 10:20 Dose: 40 mg Folic Acid (Folic Acid -) 1 mg PO DAILY [facility] Last Admin: 12/16/18 10:17 Dose: 1 mg Piperacillin Sod/Tazobactam (Sod 3.375 gm/ Dextrose) 50 mls @ 100 mls/hr IVPB Q8H-IV [facility]; Protocol Last Admin: 12/17/18 02:12 Dose: 100 mls/hr Lacosamide (Vimpat -) 50 mg PO BID [facility] Last Admin: 12/16/18 21:38 Dose: 50 mg Levothyroxine Sodium 100 mcg/ (Levothyroxine Sodium 75 mcg) 175 mcg PO MoWeTh@ 0700 [facility] Last Admin: 12/16/18 06:47 Dose: 175 mcg Levothyroxine Sodium (Synthroid -) 150 mcg PO SuFrSa@0700 [facility] Last Admin: 12/17/18 06:05 Dose: 150 mcg [place] Carbonate (Eskalith -) 450 mg PO BID [facility] Last Admin: 12/16/18 21:43 Dose: 450 mg Multivitamins/Minerals/Vitamin C (Tab-A-Vit -) 1 tab PO DAILY [facility] Last Admin: 12/16/18 10:19 Dose: 1 tab Pantoprazole Sodium (Protonix -) 20 mg PO DAILY [facility] Last Admin: 12/16/18 10:18 Dose: 20 mg Senna (Senna -) 2 tab PO BID [facility] Last Admin: 12/16/18 21:38 Dose: 2 tab Tamsulosin HCl (Flomax -) 0.4 mg PO DAILY@0830 [facility] Last Admin: 12/16/18 08:48 Dose: 0.4 mg CBC, BMP 12/11/18 05:55 12/11/18 05:55 Physical Exam. awake/ comfortable S1 S2 RRR lungs- clear Abd- soft, NT, ND No edema Psych - calm PLAN Pneumonia vs malignancy vs TB on airborne isolation till TB ruled out- quantiferon tb test negative IV antibiotics per ID Nebs unable to get sputum for studies d/c isolation ? Discussed with Dr. Mojica today - will follow Will need to repeat CT in 3 weeks DVT prophylaxis-- Lovenox sc check depakote level Problem List - Problems (1) Lung mass Code(s): R91.8 - OTHER NONSPECIFIC ABNORMAL FINDING OF LUNG FIELD (2) Psychiatric disorder Code(s): F99 - MENTAL DISORDER, NOT OTHERWISE SPECIFIED (3) Pneumonia Code(s): J18.9 - PNEUMONIA, UNSPECIFIED ORGANISM (4) Hypertension Code(s): I10 - ESSENTIAL (PRIMARY) HYPERTENSION (5) Hypothyroidism Code(s): E03.9 - HYPOTHYROIDISM, UNSPECIFIED (6) Mental retardation Code(s): F79 - UNSPECIFIED INTELLECTUAL DISABILITIES
[2018-12-17] MEDS ORDERED: PT OWN MED DRAWER 7, Y5N ONE ×2 (10:59→20:51)
[2018-12-17] MEDS: LACOSAMIDE 50 MG TABLET PO SCH ×2 (11:02→22:16)
[2018-12-17] MEDS: SENNOSIDES 8.6MG TABLET (FP) PO SCH ×2 (11:02→21:26)
[2018-12-17] MEDS: CALCIUM 500MG/VIT-D 200 UNITS COMBO TABLET (FP) PO SCH (11:02)
[2018-12-17] MEDS: MULTIVITAMINS (DAILY MVI) TABLET (FP) PO SCH (11:03)
[2018-12-17] MEDS: FOLIC ACID 1 MG TABLET (FP) PO SCH (11:03)
[2018-12-17] MEDS: ENOXAPARIN NA (PORCINE) 40 MG/0.4 ML DISP.SYRIN SQ SCH (11:03)
[2018-12-17] MEDS: TAMSULOSIN HCL 0.4 MG CAP PO SCH (11:03)
[2018-12-17] MEDS: PANTOPRAZOLE 20 MG TABLET (FP) PO SCH (11:03)
[2018-12-17] MEDS: ENALAPRIL MALEATE 2.5 MG TABLET (FP) PO SCH (11:04)
[2018-12-17] MEDS: busPIRone HCL 10 MG TABLET (FP) PO SCH ×2 (11:05→21:23)
[2018-12-17] MEDS: DESMOPRESSIN ACETATE 0.2 MG TABLET PO SCH ×2 (11:05→21:24)
[2018-12-17] MEDS: LITHIUM CARBONATE 450 MG TABLET.ER PO SCH ×2 (11:07→21:53)
--- NOTE | 2018-12-17 13:35 | PN ---
Progress Note (short form) - Note Progress Note: PULMONARY APPEARS STABLE/ VSS/AFEBRILE ANICTERIC/PALE CLEAR BREATH SOUNDS S1S2 BS+ NO EDEMA LABS/MEDS/NOTES/IMAGES REVIEWED RUL ROUNDED DENSITY WITH HYPERLUCENT AREAS/H/O SHAKING CHILLS AND CONGESTED COUGH TREATING FOR PNEUMONIA WITH ANTIBIOTICS/NEBS/O2 SUPPLEMENTATION NEED TO REPEAT IMAGING STUDY IN 2-4 WEEKS TO DOCUMENT CHANGE IN LESION MAY ULTIMATELY NEED DIAGNOSTIC PROCEDURE TO R/O NEOPLASM R Terrance GARZA Problem List - Problems (1) Lung mass Code(s): R91.8 - OTHER NONSPECIFIC ABNORMAL FINDING OF LUNG FIELD (2) Pneumonia Code(s): J18.9 - PNEUMONIA, UNSPECIFIED ORGANISM (3) Psychiatric disorder Code(s): F99 - MENTAL DISORDER, NOT OTHERWISE SPECIFIED
--- NOTE | 2018-12-17 14:20 | PN ---
Progress Note, Physician History of Present Illness: AWAKE, ALERT NO C/O COUGH UNABLE TO GIVE SPUTUM SPECIMEN DENIES CHEST PAIN/ DYSPNEA AFEBRILE WBC WNL HIV (-) - Current Medication List Current Medications: Active Medications Acetaminophen (Tylenol -) 650 mg PO Q4H PRN PRN Reason: FEVER Last Admin: 12/12/18 09:18 Dose: 650 mg Amoxicillin/Clavulanate Potassium (Augmentin - 875mg Tablet) 1 tab PO BID@0800, 1730 [facility] Buspirone HCl (Buspar -) 30 mg PO BID [facility] Last Admin: 12/17/18 11:05 Dose: 30 mg Calcium Carbonate/Cholecalciferol (Os-Arturo 500+D -) 1 tab PO DAILY [facility] Last Admin: 12/17/18 11:02 Dose: 1 tab Clonazepam (Klonopin -) 1 mg PO AM [facility] Last Admin: 12/17/18 06:06 Dose: 1 mg Clonazepam (Klonopin -) 0.5 mg PO BID [facility] Last Admin: 12/17/18 11:03 Dose: 0.5 mg Clozapine (Clozaril -) 300 mg PO HS [facility] Last Admin: 12/16/18 21:42 Dose: 300 mg Desmopressin Acetate (Ddavp -) 0.4 mg PO BID [facility] Last Admin: 12/17/18 11:05 Dose: 0.4 mg Divalproex Sodium (Depakote -) 500 mg PO TID [facility] Last Admin: 12/17/18 06:06 Dose: 500 mg Docusate Sodium (Colace -) 300 mg PO TID [facility] Last Admin: 12/17/18 06:05 Dose: 300 mg Enalapril Maleate (Vasotec -) 2.5 mg PO DAILY [facility] Last Admin: 12/17/18 11:04 Dose: 2.5 mg Enoxaparin Sodium (Lovenox -) 40 mg SQ DAILY [facility] Last Admin: 12/17/18 11:03 Dose: 40 mg Folic Acid (Folic Acid -) 1 mg PO DAILY [facility] Last Admin: 12/17/18 11:03 Dose: 1 mg Lacosamide (Vimpat -) 50 mg PO BID [facility] Last Admin: 12/17/18 11:02 Dose: 50 mg Levothyroxine Sodium 100 mcg/ (Levothyroxine Sodium 75 mcg) 175 mcg PO MoWeTh@ 0700 [facility] Last Admin: 12/16/18 06:47 Dose: 175 mcg Levothyroxine Sodium (Synthroid -) 150 mcg PO SuFrSa@0700 [facility] Last Admin: 12/17/18 06:05 Dose: 150 mcg [place] Carbonate (Eskalith -) 450 mg PO BID [facility] Last Admin: 12/17/18 11:07 Dose: 450 mg Multivitamins/Minerals/Vitamin C (Tab-A-Vit -) 1 tab PO DAILY [facility] Last Admin: 12/17/18 11:03 Dose: 1 tab Pantoprazole Sodium (Protonix -) 20 mg PO DAILY [facility] Last Admin: 12/17/18 11:03 Dose: 20 mg Senna (Senna -) 2 tab PO BID [facility] Last Admin: 12/17/18 11:02 Dose: 2 tab Tamsulosin HCl (Flomax -) 0.4 mg PO DAILY@0830 [facility] Last Admin: 12/17/18 11:03 Dose: 0.4 mg - Objective Vital Signs: Vital Signs Temperature 97.8 F 12/17/18 09:00 Pulse Rate 98 H 12/17/18 09:00 Respiratory Rate 18 12/17/18 09:00 Blood Pressure 132/82 12/17/18 09:00 O2 Sat by Pulse Oximetry (%) 100 12/16/18 21:00 Constitutional: Yes: No Distress Eyes: Yes: Conjunctiva Clear Cardiovascular: Yes: Regular Rate and Rhythm, S1, S2 Respiratory: Yes: CTA Bilaterally Gastrointestinal: Yes: Normal Bowel Sounds, Soft Edema: No Labs: CBC, BMP 12/11/18 05:55 12/11/18 05:55 INR, PTT INR 1.21 (0.83-1.09) H 12/10/18 02:41 Assessment/Plan MASS-LIKE RUL CONSOLIDATION WITH ? CAVITATION R/O NECROTIZING PNEUMONIA/ LUNG ABSCESS R/O AFB DZ R/O NEOPLASM UNABLE TO PROVIDE SPUTUM C/S, AFB DISCONTINUE ZOSYN AUGMENTIN 875MG PO BID X 1OD OUTPATIENT F/U CT CHEST/ PULM FOLLOW UP
[2018-12-17] MEDS: AMOX TR/POT CLAV 875MG/125MG TABLETS (FP) PO SCH (18:13)
[2018-12-17] MEDS: cloZAPine 100 MG TABLET PO SCH (21:23)
[2018-12-18] MEDS: DOCUSATE SODIUM 100 MG CAPSULE (FP) PO SCH ×2 (06:50→14:23)
[2018-12-18] MEDS: DIVALPROEX SODIUM 500 MG TABLET E.C. PO SCH ×2 (06:50→14:23)
[2018-12-18] MEDS: LEVOTHYROXINE NA 75 MCG TABLET (FP) PO SCH (06:51)
[2018-12-18] MEDS ORDERED: clonazePAM 0.5 MG TABLET PO SCH ×2 (08:00→16:00)
[2018-12-18] MEDS ORDERED: PT OWN MED DRAWER 7, Y5N ONE (08:55)
[2018-12-18] MEDS: ENOXAPARIN NA (PORCINE) 40 MG/0.4 ML DISP.SYRIN SQ SCH (09:17)
[2018-12-18] MEDS: TAMSULOSIN HCL 0.4 MG CAP PO SCH (09:17)
[2018-12-18] MEDS: CALCIUM 500MG/VIT-D 200 UNITS COMBO TABLET (FP) PO SCH (09:17)
[2018-12-18] MEDS: AMOX TR/POT CLAV 875MG/125MG TABLETS (FP) PO SCH ×2 (09:17→17:24)
[2018-12-18] MEDS: SENNOSIDES 8.6MG TABLET (FP) PO SCH (09:18)
[2018-12-18] MEDS: MULTIVITAMINS (DAILY MVI) TABLET (FP) PO SCH (09:19)
[2018-12-18] MEDS: LACOSAMIDE 50 MG TABLET PO SCH (09:19)
[2018-12-18] MEDS: FOLIC ACID 1 MG TABLET (FP) PO SCH (09:19)
[2018-12-18] MEDS: PANTOPRAZOLE 20 MG TABLET (FP) PO SCH (09:19)
[2018-12-18] MEDS: LITHIUM CARBONATE 450 MG TABLET.ER PO SCH (09:19)
[2018-12-18] MEDS: busPIRone HCL 10 MG TABLET (FP) PO SCH (09:20)
[2018-12-18] MEDS: DESMOPRESSIN ACETATE 0.2 MG TABLET PO SCH (09:20)
[2018-12-18] MEDS: ENALAPRIL MALEATE 2.5 MG TABLET (FP) PO SCH (09:21)
--- NOTE | 2018-12-18 10:00 | DS ---
Physical Examination Vital Signs: Vital Signs Temperature 98.6 F 12/18/18 09:16 Pulse Rate 97 H 12/18/18 09:16 Respiratory Rate 18 12/18/18 09:16 Blood Pressure 114/69 12/18/18 09:16 O2 Sat by Pulse Oximetry (%) 100 12/16/18 21:00 Findings/Remarks: feels well no complains Constitutional: Yes: Well Nourished, No Distress Eyes: Yes: Conjunctiva Clear Neck: Yes: Supple Cardiovascular: Yes: Regular Rate and Rhythm Respiratory: Yes: CTA Bilaterally Gastrointestinal: Yes: Soft Edema: No Neurological: Yes: Alert Psychiatric: Yes: Alert Labs: CBC, BMP 12/11/18 05:55 12/11/18 05:55 Discharge Summary Reason For Visit: PNEUMONIA Current Active Problems Lung mass (Acute) Pneumonia (Acute) Psychiatric disorder (Acute) Hospital Course: admitted for fever work up showed lung mass treated with abx pulmonary/ i/d followed IN SUMMARY MASS-LIKE RUL CONSOLIDATION WITH ? CAVITATION R/O NECROTIZING PNEUMONIA/ LUNG ABSCESS R/O AFB DZ R/O NEOPLASM UNABLE TO PROVIDE SPUTUM C/S, AFB AUGMENTIN 875MG PO BID X 1OD OUTPATIENT F/U CT CHEST/ PULM FOLLOW UP F/U IN OFFICE IN 2 WEEKS MEDS RECONCILLED ABX PRESCRIBED D/C TO HOME TODAY DISCUSSED WITH NURSING STAFF ALSO Condition: Stable - Instructions Referrals: Rios Rendon MD [Primary Care Provider] - Disposition: HOME - Home Medications Comprehensive Discharge Medication List: Ambulatory Orders Buspirone HCl [Buspar -] 30 mg PO BID 10/28/15 Calcium Carbonate/Vitamin D3 [Oystercal-D 500 mg-400 Unit Tb] 1 each PO DAILY Clozapine [Clozaril] 300 mg PO HS 10/28/15 Docusate Sodium [Colace -] 300 mg PO TID 10/28/15 Enalapril Maleate [Vasotec -] 2.5 mg PO DAILY 10/28/15 Ergocalciferol (Vitamin D2) [Vitamin D] 50,000 unit PO MONTHLY 10/28/15 Folic Acid - 1 mg PO DAILY 10/28/15 Lacosamide [Vimpat -] 50 mg PO BID 10/28/15 Levothyroxine [Synthroid -] 15 mcg PO ASDIR 10/28/15 Levothyroxine [Synthroid -] 175 mcg PO ASDIR 10/28/15 [place] Carbonate [Eskalith -] 450 mg PO BID 10/28/15 Multivitamins [Multivit ([facility] Formulary)] 1 tab PO DAILY 10/28/15 Omeprazole [Prilosec (RX)] 20 mg PO DAILY 10/28/15 Sennosides [Senna] 8.6 mg PO BID 10/28/15 Tamsulosin HCl [Flomax -] 0.4 mg PO HS 10/28/15 Clonazepam [Klonopin] 0.5 mg PO TID 11/06/17 Desmopressin Acetate [Ddavp] 0.2 mg PO BID 11/06/17 Divalproex Sodium 500 mg PO TID 12/13/18 Amox-Tr/K Cl [Augmentin 875-125mg Tablet -] 1 tab PO BID@0800,1730 9 Days #18 tablet 12/18/18 Divalproex [Depakote -] 500 mg PO TID tablet.ec 12/18/18
--- NOTE | 2018-12-18 11:06 | PN ---
Progress Note (short form) - Note Progress Note: Walking in his room. Feels better. Intake & Output 12/15/18 12/16/18 12/17/18 12/18/18 23:59 23:59 23:59 23:59 Intake Total 400 980 350 Balance 400 980 350 Last Vital Signs Temp Pulse Resp BP Pulse Ox 98.6 F 97 H 18 114/69 100 12/18/18 09:16 12/18/18 09:16 12/18/18 09:16 12/18/18 09:16 12/16/18 21:00 Active Medications Acetaminophen (Tylenol -) 650 mg PO Q4H PRN PRN Reason: FEVER Last Admin: 12/12/18 09:18 Dose: 650 mg Amoxicillin/Clavulanate Potassium (Augmentin - 875mg Tablet) 1 tab PO BID@0800, 1730 [facility] Last Admin: 12/18/18 09:17 Dose: 1 tab Buspirone HCl (Buspar -) 30 mg PO BID [facility] Last Admin: 12/18/18 09:20 Dose: 30 mg Calcium Carbonate/Cholecalciferol (Os-Arturo 500+D -) 1 tab PO DAILY [facility] Last Admin: 12/18/18 09:17 Dose: 1 tab Clonazepam (Klonopin -) 0.5 mg PO BID@1600,2000 [facility] Clonazepam (Klonopin -) 1 mg PO DAILY@0800 [facility] Last Admin: 12/18/18 09:18 Dose: 1 mg Clozapine (Clozaril -) 300 mg PO HS [facility] Last Admin: 12/17/18 21:23 Dose: 300 mg Desmopressin Acetate (Ddavp -) 0.4 mg PO BID [facility] Last Admin: 12/18/18 09:20 Dose: 0.4 mg Divalproex Sodium (Depakote -) 500 mg PO TID [facility] Last Admin: 12/18/18 06:50 Dose: 500 mg Docusate Sodium (Colace -) 300 mg PO TID [facility] Last Admin: 12/18/18 06:50 Dose: 300 mg Enalapril Maleate (Vasotec -) 2.5 mg PO DAILY [facility] Last Admin: 12/18/18 09:21 Dose: 2.5 mg Enoxaparin Sodium (Lovenox -) 40 mg SQ DAILY [facility] Last Admin: 12/18/18 09:17 Dose: 40 mg Folic Acid (Folic Acid -) 1 mg PO DAILY [facility] Last Admin: 12/18/18 09:19 Dose: 1 mg Lacosamide (Vimpat -) 50 mg PO BID [facility] Last Admin: 12/18/18 09:19 Dose: 50 mg Levothyroxine Sodium 100 mcg/ (Levothyroxine Sodium 75 mcg) 175 mcg PO MoWeTh@ 0700 [facility] Last Admin: 12/16/18 06:47 Dose: 175 mcg Levothyroxine Sodium (Synthroid -) 150 mcg PO SuFrSa@0700 [facility] Last Admin: 12/18/18 06:51 Dose: 150 mcg [place] Carbonate (Eskalith -) 450 mg PO BID [facility] Last Admin: 12/18/18 09:19 Dose: 450 mg Multivitamins/Minerals/Vitamin C (Tab-A-Vit -) 1 tab PO DAILY [facility] Last Admin: 12/18/18 09:19 Dose: 1 tab Pantoprazole Sodium (Protonix -) 20 mg PO DAILY [facility] Last Admin: 12/18/18 09:19 Dose: 20 mg Senna (Senna -) 2 tab PO BID [facility] Last Admin: 12/18/18 09:18 Dose: 2 tab Tamsulosin HCl (Flomax -) 0.4 mg PO DAILY@0830 [facility] Last Admin: 12/18/18 09:17 Dose: 0.4 mg Gen: NAD at rest Heart: RRR Lung: decreased breath sounds at the bases Abd: soft, nontender Ext: no edema Laboratory Results - last 24 hr 12/18/18 07:00 Valproic Acid 53.1 A/P Lung Mass - Focal Pneumonia vs Abscess vs Malignancy Mental Retardation HTN Hypothyroidism - Complete antibiotics course - Will need repeat CT chest in 4 weeks - DVT prophylaxis Dr Hahn
[2018-12-18 14:40] VITALS: BP 116/70; PULSE 84; TEMP 98.2
== END 2018-12-18 18:54 | disposition home or self-care (01) | DRG 179 ==
LOC: JER 01:44 → JERBED 05:58 → J8W 17:20
PROVIDERS: ADMIT Internal Medicine; ATTEND Internal Medicine
DX: J85.0 Gangrene and necrosis of lung (principal); F71 Moderate intellectual disabilities; F41.8 Other specified anxiety disorders; R91.8 Other nonspecific abnormal finding of lung field; I10 Essential (primary) hypertension; E03.9 Hypothyroidism, unspecified; F91.9 Conduct disorder, unspecified
CPT/HCPCS: 12001; 36415; 70450-TC; 71045-TC-FY; 71250-TC; 80053; 80164; 80178; 82550; 82553; 82962; 83605; 84443; 84484; 85025; 85610; 85730; 86140; 86480; 86850; 86900; 86901; 87040; 87389; 87804; 90471; 90715; 93005; 93010; 99281-25; 99285-25; J0131; J7030

== ENCOUNTER 2018-12-20 10:06 | Emergency (ER) | payer OTHER ==
[2018-12-20 10:15] VITALS: BP 131/71; PULSE 98; TEMP 98.1; BMI 26.5
--- NOTE | 2018-12-20 11:18 | PDOC ---
History of Present Illness - General Chief Complaint: Respiratory Stated Complaint: FEVER Time Seen by Provider: 12/20/18 10:35 History Source: Patient Exam Limitations: Clinical Condition - History of Present Illness Initial Comments: 12/20/18 11:13 Patient with history of mentally challenged, epilepsy and pneumonia on Augmentin status post admission for IV antibiotics brought in from skilled nursing with complaint of fever since yesterday. [facility] staff reported patient was admitted for 2 weeks for pneumonia and discharged 2 days ago and was told to bring patient back if patient have fever. Staff reported patient had fever of 101 overnight and patient was not given anything for fever but patient with temp of 98.0F on presentation. Staff report improvement with cough and with patient now coughing a lot today. Patient denies shortness of breath, dizziness , palpitation. Timing/Duration: 24 hours Past History - Past Medical History Allergies/Adverse Reactions: Allergies Allergy/AdvReac Type Severity Reaction Status Date / Time chlorpromazine Allergy Intermediate Verified 12/20/18 10:11 [From [facility]] Home Medications: Ambulatory Orders Buspirone HCl [Buspar -] 30 mg PO BID 10/28/15 Calcium Carbonate/Vitamin D3 [Oystercal-D 500 mg-400 Unit Tb] 1 each PO DAILY Clozapine [Clozaril] 300 mg PO HS 10/28/15 Docusate Sodium [Colace -] 300 mg PO TID 10/28/15 Enalapril Maleate [Vasotec -] 2.5 mg PO DAILY 10/28/15 Ergocalciferol (Vitamin D2) [Vitamin D] 50,000 unit PO MONTHLY 10/28/15 Folic Acid - 1 mg PO DAILY 10/28/15 Lacosamide [Vimpat -] 50 mg PO BID 10/28/15 Levothyroxine [Synthroid -] 15 mcg PO ASDIR 10/28/15 Levothyroxine [Synthroid -] 175 mcg PO ASDIR 10/28/15 [place] Carbonate [Eskalith -] 450 mg PO BID 10/28/15 Multivitamins [Multivit ([facility] Formulary)] 1 tab PO DAILY 10/28/15 Omeprazole [Prilosec (RX)] 20 mg PO DAILY 10/28/15 Sennosides [Senna] 8.6 mg PO BID 10/28/15 Tamsulosin HCl [Flomax -] 0.4 mg PO HS 10/28/15 Clonazepam [Klonopin] 0.5 mg PO TID 11/06/17 Desmopressin Acetate [Ddavp] 0.2 mg PO BID 11/06/17 Divalproex Sodium 500 mg PO TID 12/13/18 Amox-Tr/K Cl [Augmentin 875-125mg Tablet -] 1 tab PO BID@0800,1730 9 Days #18 tablet 12/18/18 Divalproex [Depakote -] 500 mg PO TID tablet.ec 12/18/18 Anemia: No Asthma: No Cancer: No Cardiac Disorders: No CVA: No COPD: No CHF: No DVT: No Dementia: No Diabetes: No GI Disorders: Yes (GERD) Disorders: No HTN: Yes Hypercholesterolemia: No Liver Disease: No Psychiatric Problems: Yes (depression,explosive d/o) Seizures: Yes Thyroid Disease: Yes (HYPOTHYROID) - Suicide/Smoking/Psychosocial Hx Smoking History: Never smoked Have you smoked in the past 12 months: No Number of Cigarettes Smoked Daily: 0 Cigars Per Day: 0 Information on smoking cessation initiated: No Hx Alcohol Use: No Drug/Substance Use Hx: No Substance Use Type: None Hx Substance Use Treatment: No Review of Systems - Review of Systems Able to Perform ROS?: Yes Is the patient limited Lithuanian proficient: No Constitutional: Yes: Symptoms Reported, See HPI, Chills, Fever. No: Diaphoresis , Loss of Appetite, Malaise, Night Sweats, Weakness, Weight Stable, Unintentional Wgt. Loss, Unexplained wgt Loss, Other HEENTM: No: Symptoms Reported, See HPI, Eye Pain, Blurred Vision, Tearing, Recent change in vision, Double Vision, Cataracts, Ear Pain, Ocular Prothesis, Ear Discharge, Nose Pain, Nose Congestion, Tinnitus, Nose Bleeding, Hearing Loss , Throat Pain, Throat Swelling, Mouth Pain, Dental Problems, Difficulty Swallowing, Mouth Swelling, Other Respiratory: Yes: Symptoms reported, See HPI, Cough (intermittent). No: Orthopnea, Shortness of Breath, SOB with Exertion, SOB at Rest, Stridor, Wheezing, Productive cough, Hemoptysis, Other Cardiac (ROS): No: Symptoms Reported, See HPI, Chest Pain, Edema, Irregular Heart Rate, Lightheadedness, Palpitations, Syncope, Chest Tightness, Other ABD/GI: No: Diarrhea, Nausea, Vomiting All Other Systems: Reviewed and Negative *Physical Exam - Vital Signs Last Vital Signs Temp Pulse Resp BP Pulse Ox 98.1 F 98 H 16 131/71 98 12/20/18 10:12 12/20/18 10:12 12/20/18 10:12 12/20/18 10:12 12/20/18 10:12 - Physical Exam Comments: 12/20/18 11:15 GENERAL: Well developed, well nourished. Awake and alert. No acute distress. HEENT: Normocephalic, atraumatic. PERRLA, EOMI. No conjunctival pallor. Sclera are non-icteric. Moist mucous membranes. Oropharynx is clear. NECK: Supple. Full ROM. CARDIOVASCULAR: Regular rate and rhythm. No murmurs, rubs, or gallops. Distal pulses are 2+ and symmetric. PULMONARY: No evidence of respiratory distress. Lungs clear to auscultation bilaterally. No wheezing, rales or rhonchi. ABDOMINAL: Soft. Non-tender. Non-distended. No rebound or guarding. No organomegaly. Normoactive bowel sounds. MUSCULOSKELETAL Normal range of motion at all joints. SKIN: Warm and dry. No cyanosis. Normal capillary refill. No rashes. No jaundice. NEUROLOGICAL: Alert, awake, appropriate. Gait is normal without ataxia. PSYCHIATRIC: Cooperative. Good eye contact. Appropriate mood General Appearance: Yes: Nourished, Appropriately Dressed. No: Apparent Distress Moderate Sedation - Procedure Monitoring Vital Signs: Procedure Monitoring Vital Signs Temperature 98.1 F 12/20/18 10:12 Pulse Rate 98 H 12/20/18 10:12 Respiratory Rate 16 12/20/18 10:12 Blood Pressure 131/71 12/20/18 10:12 O2 Sat by Pulse Oximetry (%) 98 12/20/18 10:12 ED Treatment Course - LABORATORY CBC & Chemistry Diagram: 12/20/18 12:04 12/20/18 12:04 Medical Decision Making - Medical Decision Making 12/20/18 11:16 Patient with history of pneumonia, mentally challenged and epilepsy brought in from skilled nursing for evaluation of fever since yesterday status post discharge home on by mouth Augmentin antibiotics after IV antibiotics for pneumonia. Patient afebrile on presentation despite reported from skilled nursing with patient with fever overnight and patient not take anything for fever. Lungs clear to auscultation bilateral. Patient in no respiratory distress. Patient PCP contacted and awaiting callback for disposition as PCP has been following patient on hospital admissions and have her follow-up appointment 2 weeks. 12/20/18 12:[address] patient PCP Dr. Rendon who requests workup for fever with labs and blood culture checks x-ray and will determine course of action after lab and imaging. 12/20/18 13:30 CBC shows no elevated white blood cell count. Chest x-ray shows improvedmass on the right side. Patient afebrile now is stable for discharge with pulmonology follow-up. *DC/Admit/Observation/Transfer Diagnosis at time of Disposition: Fever Qualifiers: Fever type: unspecified Qualified Code(s): R50.9 - Fever, unspecified URI (upper respiratory infection) Qualifiers: URI type: unspecified URI Qualified Code(s): J06.9 - Acute upper respiratory infection, unspecified - Discharge Dispostion Disposition: HOME Condition at time of disposition: Stable Decision to Admit order: No - Referrals Referrals: Rios Rendon MD [Primary Care Provider] - - Patient Instructions Additional Instructions: labs was normal. Chest x-rays shows improvement in previous mass on imaging 2 weeks ago.Fever has improved. Continue with prescribed antibiotics from the hospital. Follow-up with primary care as scheduled for follow-up with Dr. Rendon . - Post Discharge Activity
[2018-12-20 12:36] LABS: BASO % 1.1 % (0-2.0); EOS % 1.4 % (0-4.5); HEMATOCRIT 31.5 % (35.4-49); HEMOGLOBIN 10.9 GM/dL (11.7-16.9); LYMPH % 15.9 % (8-40); MCH 34.2 pg (25.7-33.7); MCHC 34.5 g/dl (32.0-35.9); MEAN CELL VOLUME 99.3 fl (80-96); MEAN PLT VOLUME 7.7 fl (7.5-11.1); MONO % 6.3 % (3.8-10.2); NEUT % 75.3 % (42.8-82.8); PLATELET COUNT 302 K/MM3 (134-434); RBC 3.18 M/mm3 (4.00-5.60); RDW 13.8 % (11.9-15.9); WHITE BLOOD COUNT 6.9 K/mm3 (4.0-10.0)
[2018-12-20 13:25] LABS: ALBUMIN 3.2 g/dl (3.4-5.0); ALK PHOS 59 U/L (45-117); ANION GAP 3 MMOL/L (8-16); BILIRUBIN,TOTAL 0.2 mg/dL (0.2-1); BLOOD UREA NITROGEN 11 mg/dL (7-18); CALCIUM 9.3 mg/dL (8.5-10.1); CHLORIDE 101 mmol/L (98-107); CO2 31 mmol/L (21-32); CREATININE 1.2 mg/dL (0.55-1.3); GLUCOSE,RANDOM 90 mg/dL (74-106); POTASSIUM 4.8 mmol/L (3.5-5.1); SGOT/AST < 3 U/L (15-37); SGPT/ALT 23 U/L (13-61); SODIUM 134 mmol/L (136-145); TOT PROT 8.2 g/dl (6.4-8.2)
== END 2018-12-20 13:46 | disposition home or self-care (01) ==
LOC: JERFT 10:06
DX: J06.9 Acute upper respiratory infection, unspecified (principal); Z87.01 Personal history of pneumonia (recurrent); Z79.2 Long term (current) use of antibiotics; G40.909 Epilepsy, unspecified, not intractable, without status epilepticus; K21.9 Gastro-esophageal reflux disease without esophagitis; E03.9 Hypothyroidism, unspecified; F32.9 Major depressive disorder, single episode, unspecified; F60.3 Borderline personality disorder; F79 Unspecified intellectual disabilities
CPT/HCPCS: 36415; 71046-TC-FY; 80053; 85025; 87040; 99281-25

== ENCOUNTER 2019-01-01 18:34 | Emergency (ER) | payer OTHER ==
[2019-01-01 18:50] VITALS: BP 128/87; PULSE 91; TEMP 98.3; BMI 23.7
--- NOTE | 2019-01-01 19:48 | PDOC ---
History of Present Illness - General Chief Complaint: RX Refill Stated Complaint: PRECSRIPTION Time Seen by Provider: 01/01/19 19:05 History Source: Patient Exam Limitations: Clinical Condition - History of Present Illness Initial Comments: 01/01/19 19:49 Patient with history of seizures and mental retardation brought in from group of for medication refill as patient ran out to seizure Vimpat medication.. Reported no symptoms or complaints. Past History - Past Medical History Allergies/Adverse Reactions: Allergies Allergy/AdvReac Type Severity Reaction Status Date / Time chlorpromazine Allergy Intermediate Verified 01/01/19 18:39 [From Thorazine] Home Medications: Ambulatory Orders Buspirone HCl [Buspar -] 30 mg PO BID 10/28/15 Calcium Carbonate/Vitamin D3 [Oystercal-D 500 mg-400 Unit Tb] 1 each PO DAILY Clozapine [Clozaril] 300 mg PO HS 10/28/15 Docusate Sodium [Colace -] 300 mg PO TID 10/28/15 Enalapril Maleate [Vasotec -] 2.5 mg PO DAILY 10/28/15 Ergocalciferol (Vitamin D2) [Vitamin D] 50,000 unit PO MONTHLY 10/28/15 Folic Acid - 1 mg PO DAILY 10/28/15 Levothyroxine [Synthroid -] 15 mcg PO ASDIR 10/28/15 Levothyroxine [Synthroid -] 175 mcg PO ASDIR 10/28/15 [place] Carbonate [Eskalith -] 450 mg PO BID 10/28/15 Multivitamins [Multivit ([facility] Formulary)] 1 tab PO DAILY 10/28/15 Omeprazole [Prilosec (RX)] 20 mg PO DAILY 10/28/15 Sennosides [Senna] 8.6 mg PO BID 10/28/15 Tamsulosin HCl [Flomax -] 0.4 mg PO HS 10/28/15 Clonazepam [Klonopin] 0.5 mg PO TID 11/06/17 Desmopressin Acetate [Ddavp] 0.2 mg PO BID 11/06/17 Divalproex Sodium 500 mg PO TID 12/13/18 Amox-Tr/K Cl [Augmentin 875-125mg Tablet -] 1 tab PO BID@0800,1730 9 Days #18 tablet 12/18/18 Divalproex [Depakote -] 500 mg PO TID tablet.ec 12/18/18 Lacosamide [Vimpat -] 50 mg PO BID 3 Days #12 tab MDD 4 01/01/19 Anemia: No Asthma: No Cancer: No Cardiac Disorders: No CVA: No COPD: No CHF: No DVT: No Dementia: No Diabetes: No GI Disorders: Yes (GERD) Disorders: No HTN: Yes Hypercholesterolemia: No Liver Disease: No Psychiatric Problems: Yes (depression,explosive d/o) Seizures: Yes Thyroid Disease: Yes (HYPOTHYROID) - Suicide/Smoking/Psychosocial Hx Smoking History: Never smoked Have you smoked in the past 12 months: No Number of Cigarettes Smoked Daily: 0 Cigars Per Day: 0 Hx Alcohol Use: No Drug/Substance Use Hx: No Substance Use Type: None Hx Substance Use Treatment: No Review of Systems - Review of Systems Able to Perform ROS?: Yes Is the patient limited Azeri proficient: No Constitutional: No: Chills, Fever HEENTM: No: Symptoms Reported Respiratory: No: Symptoms reported, SOB with Exertion Cardiac (ROS): No: Symptoms Reported ABD/GI: No: Symptoms Reported Neurological: No: Symptoms reported *Physical Exam - Vital Signs Last Vital Signs Temp Pulse Resp BP Pulse Ox 98.3 F 91 H 18 128/87 99 01/01/19 18:39 01/01/19 18:39 01/01/19 18:39 01/01/19 18:39 01/01/19 18:39 - Physical Exam General Appearance: Yes: Nourished, Appropriately Dressed. No: Apparent Distress HEENT: positive: Normal ENT Inspection Neck: positive: Supple Respiratory/Chest: negative: Respiratory Distress, Accessory Muscle Use Cardiovascular: positive: Regular Rhythm Musculoskeletal: positive: Normal Inspection Extremity: positive: Normal Inspection Neurologic: positive: Fully Oriented, Alert Moderate Sedation - Procedure Monitoring Vital Signs: Procedure Monitoring Vital Signs Temperature 98.3 F 01/01/19 18:39 Pulse Rate 91 H 01/01/19 18:39 Respiratory Rate 18 01/01/19 18:39 Blood Pressure 128/87 01/01/19 18:39 O2 Sat by Pulse Oximetry (%) 99 01/01/19 18:39 Medical Decision Making - Medical Decision Making 01/01/19 19:50 Patient with history of seizures and mental retardation brought in from group of for medication refill as patient ran out to seizure Vimpat medication.. Reported no symptoms or complaints.Patient with no symptoms. 3 day worth of medications sent to patient pharmacy and stop advised to contact patient PCP follow-up for medication refill . *DC/Admit/Observation/Transfer Diagnosis at time of Disposition: Medication refill, Seizure - Discharge Dispostion Disposition: HOME Condition at time of disposition: Stable Decision to Admit order: No - Prescriptions Prescriptions: Lacosamide [Vimpat -] 50 mg PO BID 3 Days #12 tab MDD 4 - Referrals Referrals: Rios Rendon MD [Primary Care Provider] - - Patient Instructions Additional Instructions: 3 Days worth of medication given . Follow-up with PCP for complete medication refill - Post Discharge Activity
== END 2019-01-01 19:52 | disposition home or self-care (01) ==
LOC: JER 18:34 → JERFT 18:34
DX: G40.909 Epilepsy, unspecified, not intractable, without status epilepticus (principal); I10 Essential (primary) hypertension; K21.9 Gastro-esophageal reflux disease without esophagitis; F32.9 Major depressive disorder, single episode, unspecified; F60.3 Borderline personality disorder
CPT/HCPCS: 99281-25

== ENCOUNTER 2019-04-06 09:13 | Emergency (ER) | payer OTHER ==
[2019-04-06 09:23] VITALS: BP 107/84; PULSE 89; TEMP 97.9; BMI 24.2
--- NOTE | 2019-04-06 09:40 | PDOC ---
History of Present Illness - General Chief Complaint: Constipation Stated Complaint: Constipation Time Seen by Provider: 04/06/19 09:26 History Source: Patient Exam Limitations: No Limitations - History of Present Illness Pain Radiation: reports: no radiation Activities at Onset: reports: none Aggravating Factors: improves with: None Alleviating Factors: improves with: None (48y/o M with no bowel movement X 5 days, denies pain) Past History - Travel Traveled outside of the country in the last 30 days: No Close contact w/someone who was outside of country & ill: No - Past Medical History Allergies/Adverse Reactions: Allergies Allergy/AdvReac Type Severity Reaction Status Date / Time chlorpromazine Allergy Intermediate Verified 01/01/19 18:39 [From Thorazine] Home Medications: Ambulatory Orders Calcium Carbonate/Vitamin D3 [Oystercal-D 500 mg-400 Unit Tb] 1 each PO DAILY Cholecalciferol (Vitamin D3) [Vitamin D3] 50,000 unit PO MONTHLY 04/06/19 Clozapine 300 mg PO HS 04/06/19 Desmopressin Acetate 0.4 mg PO HS 04/06/19 Docusate Sodium 100 mg PO TID 04/06/19 Levothyroxine Sodium 150 mcg PO ASDIR 04/06/19 Levothyroxine Sodium 175 mcg PO ASDIR 04/06/19 Multivitamin [Multiple Vitamins] 1 each PO DAILY 04/06/19 Polyethylene Glycol 3350 17 gm PO DAILY PRN 04/06/19 Sennosides [Senna] 2 tab PO DAILY 04/06/19 Tamsulosin HCl 0.4 mg PO HS 04/06/19 Anemia: No Asthma: No Cancer: No Cardiac Disorders: No CVA: No COPD: No CHF: No DVT: No Dementia: No Diabetes: No GI Disorders: Yes (GERD) Disorders: No HTN: Yes Hypercholesterolemia: No Liver Disease: No Psychiatric Problems: Yes (depression,explosive d/o) Seizures: Yes Thyroid Disease: Yes (HYPOTHYROID) Other medical history: Mentaly Retarded - Immunization History Immunization Up to Date: No - Suicide/Smoking/Psychosocial Hx Smoking History: Never smoked Have you smoked in the past 12 months: No Number of Cigarettes Smoked Daily: 0 Cigars Per Day: 0 Information on smoking cessation initiated: No Hx Alcohol Use: No Drug/Substance Use Hx: No Substance Use Type: None Hx Substance Use Treatment: No Abd/GI Specific PMHX - Complaint Specific PMHX Colitis: No Review of Systems - Review of Systems Able to Perform ROS?: No Is the patient limited Czech proficient: No Constitutional: No: Chills, Fever ABD/GI: Yes: Constipated. No: Abdominal Distended, Abd. Pain w/ defecation, Blood Streaked Bowels, Diarrhea, Difficulty Swallowing, Nausea, Poor Appetite, Poor Fluid Intake, Rectal Bleeding, Vomiting, Indigestion, Abdominal cramping, Tarry Stools Musculoskeletal: No: Back Pain *Physical Exam - Vital Signs Last Vital Signs Temp Pulse Resp BP Pulse Ox 97.9 F 89 18 107/84 100 04/06/19 09:17 04/06/19 09:17 04/06/19 09:17 04/06/19 09:04/06/19 09:17 - Physical Exam General Appearance: Yes: Nourished Respiratory/Chest: positive: Lungs Clear, Normal Breath Sounds Cardiovascular: positive: Regular Rhythm, Regular Rate, S1, S2 Gastrointestinal/Abdominal: positive: Normal Bowel Sounds, Soft Rectal Exam: positive: other (impacted) Musculoskeletal: positive: Normal Inspection Extremity: positive: Normal Capillary Refill, Normal Inspection Neurologic: positive: Fully Oriented, Alert ED Treatment Course - RADIOLOGY Radiology Studies Ordered: Category Date Time Status ABDOMEN [id number] [RAD] Stat Radiology 04/06/19 09:33 Ordered Medical Decision Making - Medical Decision Making 04/06/19 09:40 48y/o M with mild MR, depression, resident for [facility], accompanied by counselor (Mr. Arrington)c/o no BM X 5 days pt denies abd pain, fever, chill, n/v/d or abd surgeries. pt is already on colace, sennna, lactulose pt is well appearing, benign abd ++ impacted stool on rectal exam plain film with moderate constipation fleet enema now will reassess Pt has two successful BM after enema felt much better high fiber diet advised Pt to continue laxative meds that was already prescribed GI referral given as well *DC/Admit/Observation/Transfer Diagnosis at time of Disposition: Constipation Qualifiers: Constipation type: other constipation type Qualified Code(s): K59.09 - Other constipation - Discharge Dispostion Disposition: HOME Condition at time of disposition: Stable - Referrals Referrals: Rios Rendon MD [Primary Care Provider] - Trevon King MD [Staff Physician] - - Patient Instructions Printed Discharge Instructions: Constipation Additional Instructions: Your xray showed constipation please increase fruits, fibers in your diet avoid foods high in carbs Follow up with GI doctor Return to the Emergency Department If worsening symptoms occurs - Post Discharge Activity
[2019-04-06] MEDS ORDERED: SODIUM PHOSPHATE/NA BIPHOS 133 ML ENEMA PR ONE (09:51)
== END 2019-04-06 11:02 | disposition home or self-care (01) ==
LOC: JERFT 09:13
DX: K59.09 Other constipation (principal); F79 Unspecified intellectual disabilities; F32.9 Major depressive disorder, single episode, unspecified
CPT/HCPCS: 74019-TC-FY; 99282-25

== ENCOUNTER 2019-12-23 10:26 | Emergency (ER) | payer OTHER ==
[2019-12-23 10:46] VITALS: BMI 20.9
[2019-12-23] MEDS ORDERED: SODIUM CHLORIDE 1,000 ML IV STA (11:29)
[2019-12-23] MEDS ORDERED: ACETAMINOPHEN 325 MG TABLET (FP) PO ONE (11:29)
[2019-12-23] MEDS ORDERED: ACETAMINOPHEN 325 MG TABLET (FP) ONE (11:40)
[2019-12-23 12:16] LABS: BASO % 0.7 % (0-2.0); HEMATOCRIT 32.7 % (35.4-49); HEMOGLOBIN 11.1 GM/dL (11.7-16.9); LYMPH % 33.1 % (8-40); MCH 33.6 pg (25.7-33.7); MCHC 33.8 g/dl (32.0-35.9); MEAN CELL VOLUME 99.5 fl (80-96); MEAN PLT VOLUME 8.5 fl (7.5-11.1); MONO % 11.6 % (3.8-10.2); NEUT % 49.6 % (42.8-82.8); PLATELET COUNT 175 K/MM3 (134-434); RBC 3.29 M/mm3 (4.00-5.60); RDW 13.2 % (11.9-15.9); WHITE BLOOD COUNT 4.9 K/mm3 (4.0-10.0)
[2019-12-23 12:48] LABS: ALBUMIN 3.2 g/dl (3.4-5.0); BILIRUBIN,TOTAL 0.3 mg/dL (0.2-1); BLOOD UREA NITROGEN 11.4 mg/dL (7-18); CALCIUM 9.2 mg/dL (8.5-10.1); CREATININE 1.1 mg/dL (0.55-1.3); POTASSIUM 4.5 mmol/L (3.5-5.1); TOT PROT 6.8 g/dl (6.4-8.2)
--- NOTE | 2019-12-23 14:03 | PDOC ---
Documentation entered by Ayaka Davila SCRIBE, acting as scribe for Aishwarya Loza MD. Aishwarya Loza MD: This documentation has been prepared by the Lola schuster Nirvannie, SCRIBE, under my direction and personally reviewed by me in its entirety. I confirm that the documentation accurately reflects all work, treatment, procedures, and medical decision making performed by me. History of Present Illness - General Chief Complaint: Cold Symptoms Stated Complaint: BODY SHAKES Time Seen by Provider: 12/23/19 11:13 History Source: Patient, Care Provider Exam Limitations: No Limitations - History of Present Illness Initial Comments: 49 yo M [facility] for [facility], tremors to the hands B/L. As per staff from jail, they were concerned as he has had similar symptoms with pneumonia in the past. He c/o intermittent dry cough. Denies congestion, cp, abd pain, N/V/D. +Fever/chills. No known sick contacts, no recent flu outbreaks at the jail. No recent travel. Past History - Past Medical History Allergies/Adverse Reactions: Allergies Allergy/AdvReac Type Severity Reaction Status Date / Time chlorpromazine Allergy Intermediate Verified 12/23/19 10:53 [From Thorazine] Home Medications: Ambulatory Orders Calcium Carbonate/Vitamin D3 [Oystercal-D 500 mg-400 Unit Tb] 1 each PO DAILY 04/06/19 Cholecalciferol (Vitamin D3) [Vitamin D3] 50,000 unit PO MONTHLY 04/06/19 Clozapine 300 mg PO HS 04/06/19 Desmopressin Acetate 0.4 mg PO HS 04/06/19 Docusate Sodium 100 mg PO TID 04/06/19 Levothyroxine Sodium 150 mcg PO ASDIR 04/06/19 Levothyroxine Sodium 175 mcg PO ASDIR 04/06/19 Multivitamin [Multiple Vitamins] 1 each PO DAILY 04/06/19 Polyethylene Glycol 3350 17 gm PO DAILY PRN 04/06/19 Sennosides [Senna] 2 tab PO DAILY 04/06/19 Tamsulosin HCl 0.4 mg PO HS 04/06/19 Anemia: No Asthma: No Cancer: No Cardiac Disorders: No CVA: No COPD: No CHF: No DVT: No Dementia: No Diabetes: No GI Disorders: Yes (GERD) Disorders: No HTN: Yes Hypercholesterolemia: No Liver Disease: No Psychiatric Problems: Yes (depression,explosive d/o) Seizures: Yes Thyroid Disease: Yes (HYPOTHYROID) - Immunization History Immunization Up to Date: No - Psycho Social/Smoking Cessation Hx Smoking History: Never smoked Have you smoked in the past 12 months: No Number of Cigarettes Smoked Daily: 0 Cigars Per Day: 0 Information on smoking cessation initiated: No Hx Alcohol Use: No Drug/Substance Use Hx: No Substance Use Type: None Hx Substance Use Treatment: No Review of Systems - Review of Systems Able to Perform ROS?: Yes Comments:: GENERAL/CONSTITUTIONAL: +Fever/chills. No weakness. HEAD, EYES, EARS, NOSE AND THROAT: No change in vision. No ear pain or discharge. No sore throat. CARDIOVASCULAR: No chest pain or shortness of breath. RESPIRATORY: No cough, wheezing, or hemoptysis. GASTROINTESTINAL: No nausea, vomiting, diarrhea or constipation. GENITOURINARY: No dysuria, frequency, or change in urination. MUSCULOSKELETAL: No joint or muscle swelling or pain. No neck or back pain. SKIN: No rash. NEUROLOGIC: No headache, vertigo, loss of consciousness, or change in str ength/sensation. ENDOCRINE: No increased thirst. No abnormal weight change. HEMATOLOGIC/LYMPHATIC: No anemia, easy bleeding, or history of blood clots. ALLERGIC/IMMUNOLOGIC: No hives or skin allergy. *Physical Exam - Vital Signs Last Vital Signs Temp Pulse Resp BP Pulse Ox 100.6 F H 94 H 16 113/66 97 12/23/19 10:43 12/23/19 10:43 12/23/19 10:43 12/23/19 10:43 12/23/19 10:43 - Physical Exam GENERAL: Awake, alert, and fully oriented, in no acute distress. Appears pale, but nontoxic. HEAD: No signs of trauma EYES: PERRLA, EOMI, sclera anicteric, conjunctiva clear ENT: Auricles normal inspection, hearing grossly normal, nares patent, oropharynx clear without exudates. Dry mucosa NECK: Normal ROM, supple, no lymphadenopathy, JVD, or masses LUNGS: Breath sounds equal, clear to auscultation bilaterally. No wheezes, and no crackles HEART: Regular rate and rhythm, normal S1 and S2, no murmurs, rubs or gallops ABDOMEN: Soft, nontender, normoactive bowel sounds. No guarding, no rebound. No masses EXTREMITIES: Normal range of motion, no edema. No clubbing or cyanosis. No cords, erythema, or tenderness. Mild tremors to the hands B/L NEUROLOGICAL: Cranial nerves II through XII grossly intact. Normal speech, normal gait. Motor and sensation intact SKIN: Warm, dry, normal turgor, no rashes or lesions noted. ED Treatment Course - LABORATORY CBC & Chemistry Diagram: 12/23/19 11:40 12/23/19 11:40 Medical Decision Making - Medical Decision Making Flu/RSV negative, CXR negative, discussed with jail staff. He appears improved after IV fluids (no longer pale, now tolerating PO). Stable for DC. Discharge - Discharge Information Problems reviewed: Yes Clinical Impression/Diagnosis: Fever Qualifiers: Fever type: unspecified Qualified Code(s): R50.9 - Fever, unspecified URI (upper respiratory infection) Qualifiers: URI type: unspecified URI Qualified Code(s): J06.9 - Acute upper respiratory infection, unspecified Condition: Stable Disposition: HOME - Admission No - Follow up/Referral - Patient Discharge Instructions Patient Printed Discharge Instructions: DI for Fever (Symptom) -- Adult - Post Discharge Activity
[2019-12-23 14:26] VITALS: BP 127/67; PULSE 92; TEMP 98.1
== END 2019-12-23 14:20 | disposition home or self-care (01) ==
LOC: JER 10:26
PROC: 3E0337Z Introduction of Electrolytic and Water Balance Substance into Peripheral Vein, Percutaneous Approach (ICD-10-PCS; principal; 2019-12-23)
DX: J06.9 Acute upper respiratory infection, unspecified (principal); Z88.8 Allergy status to other drugs, medicaments and biological substances; E03.9 Hypothyroidism, unspecified; K21.9 Gastro-esophageal reflux disease without esophagitis; I10 Essential (primary) hypertension
CPT/HCPCS: 36415; 71045-TC-FY; 80053; 83605; 85025; 87040; 87804; 87807; 99284-25; J7030

== ENCOUNTER 2021-03-09 13:29 | Inpatient (IN) | payer OTHER ==
[2021-03-09] MEDS ORDERED: LACTATED RINGERS SOLUTION 1000 ML INFUS.BAG IV STA ×2 (14:02→15:16)
[2021-03-09 14:20] LABS: BASO % 0.1 % (0-2.0); EOS % 0.2 % (0-4.5); HEMATOCRIT 33.4 % (35.4-49); HEMOGLOBIN 11.5 GM/dL (11.7-16.9); LYMPH % 4.8 % (8-40); MCH 34.9 pg (25.7-33.7); MCHC 34.6 g/dl (32.0-35.9); MEAN PLT VOLUME 8.8 fl (7.5-11.1); MONO % 12.1 % (3.8-10.2); NEUT % 82.8 % (42.8-82.8); PLATELET COUNT 171 K/MM3 (134-434); RDW 13.3 % (11.9-15.9); WHITE BLOOD COUNT 10.4 K/mm3 (4.0-10.0)
[2021-03-09 14:27] LABS: INR 1.05 (0.83-1.09); PROTHROMBIN TIME (PATIENT) 12.9 SEC (9.7-13.0)
[2021-03-09 14:29] LABS: ACTIVATED PTT 31.7 SECONDS (25.2-36.5)
[2021-03-09 14:47] LABS: CALCIUM 9.9 mg/dL (8.5-10.1)
[2021-03-09 14:48] LABS: ALBUMIN 3.4 g/dl (3.4-5.0); BLOOD UREA NITROGEN 10.5 mg/dL (7-18)
[2021-03-09 14:51] LABS: CREATININE 1.2 mg/dL (0.55-1.3)
[2021-03-09 14:53] LABS: BILIRUBIN,TOTAL 0.4 mg/dL (0.2-1); TOT PROT 7.3 g/dl (6.4-8.2)
[2021-03-09] MEDS ORDERED: ONDANSETRON 4 MG/2 ML VIAL IVPUSH ONE (14:57)
[2021-03-09] MEDS ORDERED: ACETAMINOPHEN 1000 MG/100 ML VIAL (NON FORMULARY) IVPB ONE (15:10)
[2021-03-09] MEDS ORDERED: ACETAMINOPHEN INJECTION 100 ML IVPB ONE (15:27)
[2021-03-09] MEDS ORDERED: ONDANSETRON 4 MG/2 ML VIAL ONE (15:27)
[2021-03-09] MEDS ORDERED: VANCOMYCIN 1,000 MG in DEXTROSE 5%-WATER - 250 ML IVPB ONE (15:46)
[2021-03-09] MEDS ORDERED: PIPERACILLIN/TAZOB 3.375 GM 3.375 GM in DEXTROSE 5%-WATER - 50 ML IVPB ONE (15:47)
[2021-03-09] MEDS ORDERED: VANCOMYCIN 1 GRAM (PRE-DOCKED) 1,000 MG/250 ML BAG IVPB ONE (16:06)
[2021-03-09] MEDS ORDERED: PIPERACILLIN/TAZOB 3.375 GM 3.375 GM/50 ML BAG IVPB ONE (16:06)
[2021-03-09 16:44] LABS: EPI CELLS 9 /uL (0-25.1); HYALINE CASTS 10 /uL (0-3.1); PH,URINE 8.5 (5.0-8.0); URINE APPEARANCE TURBID; URINE BACTERIA 3050 /uL (0-1359); URINE BILIRUBIN NEGATIVE (NEGATIVE); URINE COLOR YELLOW; URINE GLUCOSE (UA) NEGATIVE (NEGATIVE); URINE KETONE NEGATIVE (NEGATIVE); URINE LEUK ESTERASE 3+ (NEGATIVE); URINE NITRITE NEGATIVE (NEGATIVE); URINE PROTEIN 1+ (NEGATIVE); URINE RBC 120 /uL (0-23.9); URINE UROBILINOGEN 0.2 mg/dL (0.2-1.0); URINE WBC 7898 /uL (0-25.8)
[2021-03-09] MEDS ORDERED: PATIENT'S OWN MEDICATION (NON-FORMULARY) (Levothyroxine Sodium [Levothyroxine Sodium] 175 PO SCH (20:00)
[2021-03-09 20:31] LABS: YEAST NEGATIVE (NEGATIVE)
[2021-03-09] MEDS ORDERED: cloZAPine 100 MG TABLET PO SCH (22:00)
[2021-03-09] MEDS: SODIUM CHLORIDE 1,000 ML IV SCH (23:55)
[2021-03-10] MEDS: DESMOPRESSIN ACETATE 0.2 MG TABLET PO SCH ×2 (00:06→21:28)
[2021-03-10] MEDS: DIVALPROEX NA *ER* EXTEND REL 500 MG TABLET.SA (FP) PO SCH ×4 (00:06→21:29)
[2021-03-10] MEDS: DOCUSATE SODIUM 100 MG CAPSULE (FP) PO SCH ×4 (00:06→21:29)
[2021-03-10] MEDS ORDERED: PIPERACILLIN/TAZOB 3.375 GM 3.375 GM in DEXTROSE 5%-WATER - 50 ML IVPB SCH (02:00)
[2021-03-10] MEDS ORDERED: DEXTROSE 5%-WATER - 50 ML IVPB ONE ×3 (03:47→17:29)
[2021-03-10] MEDS ORDERED: PIPERACILLIN/TAZOBACTAM 3.375 GM VIAL IVPB ONE ×3 (03:47→17:29)
[2021-03-10] MEDS: PIPERACILLIN/TAZOB 3.375 GM 3.375 GM in DEXTROSE 5%-WATER - 50 ML IVPB SCH ×3 (03:51→17:35)
[2021-03-10] MEDS ORDERED: LEVOTHYROXINE NA 150 MCG TABLET PO SCH (07:00)
[2021-03-10] MEDS: TAMSULOSIN HCL 0.4 MG CAP PO SCH (08:20)
[2021-03-10] MEDS: diazePAM 2 MG TABLET PO SCH (08:20)
[2021-03-10 08:27] VITALS: BMI 22.0
[2021-03-10] MEDS: ENOXAPARIN NA (PORCINE) 40 MG/0.4 ML DISP.SYRIN SQ SCH ×2 (09:23)
[2021-03-10] MEDS: FOLIC ACID 1 MG TABLET (FP) PO SCH (09:24)
[2021-03-10] MEDS: busPIRone HCL 5 MG TABLET PO SCH (09:24)
[2021-03-10] MEDS: PANTOPRAZOLE 20 MG TABLET PO SCH (09:24)
[2021-03-10] MEDS: LITHIUM CARBONATE 450 MG TABLET.ER PO SCH ×2 (09:24→21:29)
[2021-03-10] MEDS: metoPROLOL SUCCINATE 25 MG TAB.SR.24H (FP) PO SCH (09:24)
[2021-03-10] MEDS: SENNOSIDES 8.6MG TABLET (FP) PO SCH (09:24)
[2021-03-10] MEDS: LORATADINE 10 MG TABLET PO SCH (09:24)
[2021-03-10 09:49] LABS: HEMATOCRIT 31.2 % (35.4-49); HEMOGLOBIN 10.6 GM/dL (11.7-16.9); MCH 35.1 pg (25.7-33.7); MCHC 33.9 g/dl (32.0-35.9); MEAN CELL VOLUME 103.3 fl (80-96); MEAN PLT VOLUME 8.9 fl (7.5-11.1); PLATELET COUNT 152 K/MM3 (134-434); RBC 3.02 M/mm3 (4.00-5.60); RDW 13.9 % (11.9-15.9); WHITE BLOOD COUNT 9.9 K/mm3 (4.0-10.0)
[2021-03-10] MEDS ORDERED: diazePAM 2 MG TABLET PO SCH (10:00)
[2021-03-10] MEDS ORDERED: VANCOMYCIN 1 GM in D5W (PRE-DOCKED) 1,000 MG/250 ML IVPB SCH ×2 (10:00→16:00)
[2021-03-10] MEDS ORDERED: ENALAPRIL MALEATE 5 MG TABLET PO SCH (10:00)
[2021-03-10 10:10] LABS: CHLORIDE 109 mmol/L (98-107); SODIUM 141 mmol/L (136-145)
[2021-03-10 10:20] LABS: ANION GAP 5 MMOL/L (8-16); BLOOD UREA NITROGEN 12.1 mg/dL (7-18); CALCIUM 9.4 mg/dL (8.5-10.1); CO2 28 mmol/L (21-32); GLUCOSE,RANDOM 130 mg/dL (74-106); MAGNESIUM 2.2 mg/dL (1.8-2.4)
[2021-03-10 10:24] LABS: CREATININE 1.2 mg/dL (0.55-1.3)
[2021-03-10] MEDS ORDERED: ACETAMINOPHEN 325 MG TABLET (FP) PO PRN (14:36)
[2021-03-10] MEDS: SODIUM CHLORIDE 0.45% 1,000 ML IV SCH (17:17)
[2021-03-10] MEDS ORDERED: PT OWN MED DRAWER 7, Y5N ONE (20:49)
[2021-03-10] MEDS: cloZAPine 100 MG TABLET PO SCH ×2 (21:30→21:43)
[2021-03-10] MEDS: SODIUM CHLORIDE 1,000 ML IV SCH (21:31)
[2021-03-11] MEDS ORDERED: DEXTROSE 5%-WATER - 50 ML IVPB ONE ×3 (01:06→17:39)
[2021-03-11] MEDS ORDERED: PIPERACILLIN/TAZOBACTAM 3.375 GM VIAL IVPB ONE ×3 (01:06→17:39)
[2021-03-11] MEDS: PIPERACILLIN/TAZOB 3.375 GM 3.375 GM in DEXTROSE 5%-WATER - 50 ML IVPB SCH ×3 (02:17→17:56)
[2021-03-11] MEDS ORDERED: LEVOTHYROXINE NA 25 MCG TABLET (FP) ONE (06:03)
[2021-03-11] MEDS ORDERED: LEVOTHYROXINE NA 150 MCG TABLET ONE (06:03)
[2021-03-11] MEDS: DOCUSATE SODIUM 100 MG CAPSULE (FP) PO SCH ×3 (06:15→21:42)
[2021-03-11] MEDS: DIVALPROEX NA *ER* EXTEND REL 500 MG TABLET.SA (FP) PO SCH ×4 (06:16→22:56)
[2021-03-11] MEDS: LEVOTHYROXINE 25 MCG, LEVOTHYROXINE 150 MCG PO SCH (06:16)
[2021-03-11] MEDS: TAMSULOSIN HCL 0.4 MG CAP PO SCH (08:46)
[2021-03-11] MEDS: SODIUM CHLORIDE 0.45% 1,000 ML IV SCH ×2 (08:46→18:01)
[2021-03-11] MEDS: diazePAM 2 MG TABLET PO SCH (08:46)
[2021-03-11 09:50] LABS: BASO % 0.2 % (0-2.0); EOS % 2.8 % (0-4.5); HEMATOCRIT 26.4 % (35.4-49); HEMOGLOBIN 9.1 GM/dL (11.7-16.9); LYMPH % 12.3 % (8-40); MCH 35.2 pg (25.7-33.7); MCHC 34.5 g/dl (32.0-35.9); MEAN CELL VOLUME 101.9 fl (80-96); MEAN PLT VOLUME 8.7 fl (7.5-11.1); MONO % 10.8 % (3.8-10.2); NEUT % 73.9 % (42.8-82.8); PLATELET COUNT 157 K/MM3 (134-434); RBC 2.59 M/mm3 (4.00-5.60); RDW 13.4 % (11.9-15.9); WHITE BLOOD COUNT 7.7 K/mm3 (4.0-10.0)
[2021-03-11 10:09] LABS: CHLORIDE 109 mmol/L (98-107); SODIUM 142 mmol/L (136-145)
[2021-03-11 10:29] LABS: CALCIUM 8.4 mg/dL (8.5-10.1)
[2021-03-11 10:30] LABS: ANION GAP 5 MMOL/L (8-16); BLOOD UREA NITROGEN 9.5 mg/dL (7-18); CO2 28 mmol/L (21-32); GLUCOSE,RANDOM 96 mg/dL (74-106)
[2021-03-11 10:32] LABS: SGPT/ALT 41 U/L (13-61)
[2021-03-11 10:33] LABS: CREATININE 1.1 mg/dL (0.55-1.3); SGOT/AST 39 U/L (15-37)
[2021-03-11 10:34] LABS: BILIRUBIN,TOTAL 0.6 mg/dL (0.2-1); TOT PROT 5.8 g/dl (6.4-8.2)
[2021-03-11 10:36] LABS: ALK PHOS 51 U/L (45-117)
[2021-03-11] MEDS: LORATADINE 10 MG TABLET PO SCH (10:40)
[2021-03-11] MEDS: metoPROLOL SUCCINATE 25 MG TAB.SR.24H (FP) PO SCH (10:40)
[2021-03-11] MEDS: busPIRone HCL 5 MG TABLET PO SCH (10:40)
[2021-03-11] MEDS: SENNOSIDES 8.6MG TABLET (FP) PO SCH (10:40)
[2021-03-11] MEDS: ENOXAPARIN NA (PORCINE) 40 MG/0.4 ML DISP.SYRIN SQ SCH (10:42)
[2021-03-11] MEDS: FOLIC ACID 1 MG TABLET (FP) PO SCH (10:42)
[2021-03-11] MEDS: LITHIUM CARBONATE 450 MG TABLET.ER PO SCH ×2 (10:43→21:43)
[2021-03-11] MEDS: PANTOPRAZOLE 20 MG TABLET PO SCH (10:44)
[2021-03-11 10:48] LABS: ALBUMIN 2.3 g/dl (3.4-5.0)
[2021-03-11] MEDS ORDERED: PT OWN MED DRAWER 7, Y5N ONE (21:21)
[2021-03-11] MEDS: DESMOPRESSIN ACETATE 0.2 MG TABLET PO SCH (21:43)
[2021-03-11] MEDS: cloZAPine 100 MG TABLET PO SCH (21:43)
[2021-03-12] MEDS ORDERED: PIPERACILLIN/TAZOBACTAM 3.375 GM VIAL IVPB ONE ×2 (01:26→10:06)
[2021-03-12] MEDS ORDERED: DEXTROSE 5%-WATER - 50 ML IVPB ONE ×2 (01:27→10:06)
[2021-03-12] MEDS: PIPERACILLIN/TAZOB 3.375 GM 3.375 GM in DEXTROSE 5%-WATER - 50 ML IVPB SCH ×2 (01:35→10:10)
[2021-03-12] MEDS ORDERED: LEVOTHYROXINE NA 150 MCG TABLET ONE (06:09)
[2021-03-12] MEDS ORDERED: LEVOTHYROXINE NA 25 MCG TABLET (FP) ONE (06:09)
[2021-03-12] MEDS: DOCUSATE SODIUM 100 MG CAPSULE (FP) PO SCH ×3 (06:29→21:07)
[2021-03-12] MEDS: LEVOTHYROXINE 25 MCG, LEVOTHYROXINE 150 MCG PO SCH (06:30)
[2021-03-12] MEDS: SODIUM CHLORIDE 0.45% 1,000 ML IV SCH (06:31)
[2021-03-12] MEDS: diazePAM 2 MG TABLET PO SCH (08:22)
[2021-03-12] MEDS ORDERED: PT OWN MED DRAWER 7, Y5N ONE (10:06)
[2021-03-12] MEDS: metoPROLOL SUCCINATE 25 MG TAB.SR.24H (FP) PO SCH (10:10)
[2021-03-12] MEDS: ENOXAPARIN NA (PORCINE) 40 MG/0.4 ML DISP.SYRIN SQ SCH (10:10)
[2021-03-12] MEDS: PANTOPRAZOLE 20 MG TABLET PO SCH (10:10)
[2021-03-12] MEDS: DIVALPROEX NA *ER* EXTEND REL 500 MG TABLET.SA (FP) PO SCH ×2 (10:10→21:08)
[2021-03-12] MEDS: FOLIC ACID 1 MG TABLET (FP) PO SCH (10:10)
[2021-03-12] MEDS: SENNOSIDES 8.6MG TABLET (FP) PO SCH (10:10)
[2021-03-12] MEDS: LITHIUM CARBONATE 450 MG TABLET.ER PO SCH ×2 (10:10→21:11)
[2021-03-12] MEDS: LACOSAMIDE 50 MG TABLET PO SCH ×2 (10:17→21:07)
[2021-03-12] MEDS ORDERED: diazePAM 2 MG TABLET PO SCH (13:15)
[2021-03-12] MEDS: CEFUROXIME AXETIL 500 MG TABLET PO SCH (21:07)
[2021-03-12] MEDS: cloZAPine 100 MG TABLET PO SCH (21:08)
[2021-03-12] MEDS: DESMOPRESSIN ACETATE 0.2 MG TABLET PO SCH (21:09)
[2021-03-13] MEDS ORDERED: LEVOTHYROXINE NA 25 MCG TABLET (FP) ONE (05:47)
[2021-03-13] MEDS ORDERED: LEVOTHYROXINE NA 150 MCG TABLET ONE (05:48)
[2021-03-13] MEDS: LEVOTHYROXINE 25 MCG, LEVOTHYROXINE 150 MCG PO SCH (06:06)
[2021-03-13] MEDS: DOCUSATE SODIUM 100 MG CAPSULE (FP) PO SCH ×2 (06:06→14:31)
[2021-03-13] MEDS: ENOXAPARIN NA (PORCINE) 40 MG/0.4 ML DISP.SYRIN SQ SCH (09:59)
[2021-03-13] MEDS: LACOSAMIDE 50 MG TABLET PO SCH (09:59)
[2021-03-13] MEDS: CEFUROXIME AXETIL 500 MG TABLET PO SCH (10:00)
[2021-03-13] MEDS: metoPROLOL SUCCINATE 25 MG TAB.SR.24H (FP) PO SCH (10:00)
[2021-03-13] MEDS ORDERED: diazePAM 2 MG TABLET PO SCH (10:00)
[2021-03-13] MEDS: PANTOPRAZOLE 20 MG TABLET PO SCH (10:00)
[2021-03-13] MEDS: DIVALPROEX NA *ER* EXTEND REL 500 MG TABLET.SA (FP) PO SCH (10:00)
[2021-03-13] MEDS: FOLIC ACID 1 MG TABLET (FP) PO SCH (10:00)
[2021-03-13] MEDS: SENNOSIDES 8.6MG TABLET (FP) PO SCH (10:00)
[2021-03-13] MEDS: LITHIUM CARBONATE 450 MG TABLET.ER PO SCH (10:01)
[2021-03-13 14:33] VITALS: BP 125/66; PULSE 102; TEMP 98.3
== END 2021-03-13 18:53 | disposition home or self-care (01) | DRG 699 ==
LOC: JER 13:29 → JERBED 16:49 → J6S 23:17
PROVIDERS: ADMIT Internal Medicine; ATTEND Internal Medicine
DX: T83.592A Infection and inflammatory reaction due to indwelling ureteral stent, initial encounter (principal); N39.0 Urinary tract infection, site not specified; G93.49 Other encephalopathy; I10 Essential (primary) hypertension; E03.9 Hypothyroidism, unspecified; K21.9 Gastro-esophageal reflux disease without esophagitis; F32.9 Major depressive disorder, single episode, unspecified; F79 Unspecified intellectual disabilities; R56.9 Unspecified convulsions; R33.8 Other retention of urine; R09.02 Hypoxemia; Y84.6 Urinary catheterization as the cause of abnormal reaction of the patient, or of later complication, without mention of misadventure at the time of the procedure
CPT/HCPCS: 36415; 71045-TC-FY; 80048; 80053; 80164; 80178; 81003; 82550; 82553; 82607; 83605; 83735; 84439; 84443; 84484; 85025; 85027; 85610; 85730; 87040; 87086; 87186; 87804; 93005; 93010; 97116-GP; 97161-GP; 99285-25; C9803; J0131; U0003; U0005

== ENCOUNTER 2021-04-04 19:12 | Emergency (ER) | payer OTHER ==
[2021-04-04 19:35] VITALS: BP 131/83; PULSE 89; TEMP 99.1; BMI 18.8
[2021-04-04] MEDS ORDERED: DIPHTH,PERTUSS(ACELL),TET 0.5 ML DISP.SYRIN IM ONE ×2 (19:53→21:09)
[2021-04-04] MEDS ORDERED: ACETAMINOPHEN 500 MG TABLET (FP) PO ONE (20:03)
[2021-04-04 20:29] LABS: BASO % 0.3 % (0-2.0); EOS % 1.5 % (0-4.5); HEMATOCRIT 29.5 % (35.4-49); LYMPH % 13.1 % (8-40); MCH 34.3 pg (25.7-33.7); MEAN CELL VOLUME 100.9 fl (80-96); MEAN PLT VOLUME 8.6 fl (7.5-11.1); MONO % 8.3 % (3.8-10.2); NEUT % 76.8 % (42.8-82.8); PLATELET COUNT 192 10^3/uL (134-434); RBC 2.92 M/mm3 (4.00-5.60); RDW 13.4 % (11.9-15.9); WHITE BLOOD COUNT 9.5 K/mm3 (4.0-10.0)
[2021-04-04 20:36] LABS: INR 1.01 (0.83-1.09); PROTHROMBIN TIME (PATIENT) 12.4 SEC (9.7-13.0)
[2021-04-04 20:39] LABS: ACTIVATED PTT 31.8 SECONDS (25.2-36.5)
[2021-04-04 20:55] LABS: CALCIUM 9.1 mg/dL (8.5-10.1)
[2021-04-04 20:56] LABS: BLOOD UREA NITROGEN 18.9 mg/dL (7-18)
[2021-04-04 20:59] LABS: CREATININE 1.2 mg/dL (0.55-1.3)
[2021-04-04 21:00] LABS: BILIRUBIN,TOTAL 0.2 mg/dL (0.2-1); TOT PROT 6.8 g/dl (6.4-8.2)
[2021-04-04] MEDS ORDERED: ACETAMINOPHEN 325 MG TABLET (FP) ONE (21:09)
== END 2021-04-05 01:07 | disposition home or self-care (01) ==
LOC: JER 19:12
PROC: 0HQ0XZZ Repair Scalp Skin, External Approach (ICD-10-PCS; principal; 2021-04-04)
PROC: 3E0234Z Introduction of Serum, Toxoid and Vaccine into Muscle, Percutaneous Approach (ICD-10-PCS; 2021-04-04)
DX: S01.01XA Laceration without foreign body of scalp, initial encounter (principal)
CPT/HCPCS: 36415; 70450-TC; 71045-TC-FY; 72125-TC; 73030-TC-RT-FY; 80053; 84484; 85025; 85610; 85730; 86850; 86900; 86901; 90471; 90715; 93005; 93010; 99285-25

== ENCOUNTER 2021-04-14 09:59 | Emergency (ER) | payer OTHER ==
[2021-04-14 10:28] VITALS: BMI 18.8
[2021-04-14] MEDS ORDERED: LACTATED RINGERS SOLUTION 1000 ML INFUS.BAG IV ONE (10:42)
[2021-04-14 10:55] LABS: BASO % 0.5 % (0-2.0); EOS % 2.7 % (0-4.5); HEMATOCRIT 29.6 % (35.4-49); LYMPH % 11.4 % (8-40); MCHC 33.8 g/dl (32.0-35.9); MEAN CELL VOLUME 100.5 fl (80-96); MEAN PLT VOLUME 7.7 fl (7.5-11.1); MONO % 7.2 % (3.8-10.2); NEUT % 78.2 % (42.8-82.8); PLATELET COUNT 223 10^3/uL (134-434); RBC 2.94 M/mm3 (4.00-5.60); RDW 14.2 % (11.9-15.9); WHITE BLOOD COUNT 7.7 K/mm3 (4.0-10.0)
[2021-04-14 11:08] LABS: CALCIUM 8.8 mg/dL (8.5-10.1)
[2021-04-14 11:09] LABS: ALBUMIN 2.9 g/dl (3.4-5.0); BLOOD UREA NITROGEN 20.6 mg/dL (7-18)
[2021-04-14 11:12] LABS: CREATININE 1.4 mg/dL (0.55-1.3)
[2021-04-14 11:13] LABS: BILIRUBIN,TOTAL 0.2 mg/dL (0.2-1); TOT PROT 6.2 g/dl (6.4-8.2)
[2021-04-14 12:49] LABS: EPI CELLS 17 /uL (0-25.1); HYALINE CASTS 1 /uL (0-3.1); URINE APPEARANCE CLEAR; URINE BACTERIA 52 /uL (0-1359); URINE BILIRUBIN NEGATIVE (NEGATIVE); URINE COLOR YELLOW; URINE GLUCOSE (UA) NEGATIVE (NEGATIVE); URINE KETONE NEGATIVE (NEGATIVE); URINE LEUK ESTERASE 3+ (NEGATIVE); URINE NITRITE NEGATIVE (NEGATIVE); URINE PROTEIN TRACE (NEGATIVE); URINE RBC 8 /uL (0-23.9); URINE UROBILINOGEN 0.2 mg/dL (0.2-1.0); URINE WBC 477 /uL (0-25.8)
[2021-04-14] MEDS ORDERED: CEPHALEXIN MONOHYDRATE 500 MG CAPSULE (UD) PO ONE (12:57)
[2021-04-14] MEDS ORDERED: CEPHALEXIN MONOHYDRATE 500 MG CAPSULE (UD) ONE (13:01)
[2021-04-14 13:10] VITALS: BP 135/85; PULSE 72; TEMP 97.9
== END 2021-04-14 13:15 | disposition home or self-care (01) ==
LOC: JER 09:59
DX: I95.89 Other hypotension (principal); N39.0 Urinary tract infection, site not specified
CPT/HCPCS: 36415; 80053; 81003; 82962; 85025; 87086; 99283-25

== ENCOUNTER 2021-07-18 08:49 | Emergency (ER) | payer OTHER ==
[2021-07-18 08:58] VITALS: BP 165/85; PULSE 67; TEMP 97.7; BMI 22.8
== END 2021-07-18 11:47 | disposition home or self-care (01) ==
LOC: JERFT 08:49
DX: S00.81XA Abrasion of other part of head, initial encounter (principal); W01.0XXA Fall on same level from slipping, tripping and stumbling without subsequent striking against object, initial encounter
CPT/HCPCS: 70450-TC; 70486-TC; 99284-25

== ENCOUNTER 2022-05-16 07:58 | Inpatient (IN) | payer OTHER ==
[2022-05-16 09:16] LABS: BASO % 0.3 % (0-2.0); HEMATOCRIT 31.8 % (35.4-49); LYMPH % 9.2 % (8-40); MCH 35.2 pg (25.7-33.7); MCHC 34.7 g/dl (32.0-35.9); MEAN CELL VOLUME 101.6 fl (80-96); MEAN PLT VOLUME 8.2 fl (7.5-11.1); MONO % 12.7 % (3.8-10.2); NEUT % 75.8 % (42.8-82.8); PLATELET COUNT 253 10^3/uL (134-434); RBC 3.13 M/mm3 (4.00-5.60); RDW 12.3 % (11.9-15.9); WHITE BLOOD COUNT 10.1 K/mm3 (4.0-10.0)
[2022-05-16 09:41] LABS: EPI CELLS 3 /uL (0-25.1); HYALINE CASTS 0 /uL (0-3.1); PH,URINE 7.5 (5.0-8.0); URINE APPEARANCE CLEAR; URINE BACTERIA 2 /uL (0-1359); URINE BILIRUBIN NEGATIVE (NEGATIVE); URINE COLOR YELLOW; URINE GLUCOSE (UA) NEGATIVE (NEGATIVE); URINE KETONE NEGATIVE (NEGATIVE); URINE LEUK ESTERASE NEGATIVE (NEGATIVE); URINE NITRITE NEGATIVE (NEGATIVE); URINE PROTEIN NEGATIVE (NEGATIVE); URINE RBC 4 /uL (0-23.9); URINE WBC 2 /uL (0-25.8)
[2022-05-16 09:45] LABS: CALCIUM 9.8 mg/dL (8.5-10.1)
[2022-05-16 09:46] LABS: ALBUMIN 2.8 g/dl (3.4-5.0)
[2022-05-16 09:49] LABS: CREATININE 1.2 mg/dL (0.55-1.3)
[2022-05-16 09:50] LABS: BILIRUBIN,TOTAL 0.4 mg/dL (0.2-1); TOT PROT 6.8 g/dl (6.4-8.2)
[2022-05-16] MEDS ORDERED: ACETAMINOPHEN 1000 MG/100 ML BAG IVPB ONE (10:10)
[2022-05-16] MEDS ORDERED: CEFTRIAXONE 1 GM in DEXTROSE 5%-WATER - 100 ML IVPB ONE (10:10)
[2022-05-16] MEDS ORDERED: AZITHROMYCIN IVPB 500 MG in DEXTROSE 5%-WATER - 250 ML IVPB ONE (10:10)
[2022-05-16] MEDS ORDERED: ACETAMINOPHEN INJECTION 100 ML IVPB ONE (10:52)
[2022-05-16] MEDS ORDERED: CEFTRIAXONE 1 GM/50 ML BAG ONE (10:53)
[2022-05-16] MEDS ORDERED: AZITHROMYCIN IVPB 500 MG/250 ML BAG IVPB ONE (11:05)
[2022-05-16] MEDS ORDERED: ACETAMINOPHEN 325 MG TABLET (FP) PO PRN (11:54)
[2022-05-16 13:22] VITALS: BMI 20.4
[2022-05-16] MEDS ORDERED: clonazePAM 0.5 MG TABLET PO PRN (15:18)
[2022-05-16 15:50] VITALS: RESP 18
[2022-05-16] MEDS: VALPROATE SODIUM 250 MG/5 ML UNIT DOSE CUP PO SCH (21:20)
[2022-05-16] MEDS: METOPROLOL TARTRATE 25 MG TABLET (FP) PO SCH (21:21)
[2022-05-16] MEDS: LACOSAMIDE 50 MG TABLET PO SCH (21:21)
[2022-05-16] MEDS: busPIRone HCL 10 MG TABLET (FP) PO SCH (21:21)
[2022-05-16] MEDS: HEPARIN NA (PORCINE) 5,000 UNITS/ML 1ML VIAL SQ SCH (21:22)
[2022-05-16] MEDS: LITHIUM CARBONATE 300 MG, LITHIUM CARBONATE 150 MG PO SCH (21:22)
[2022-05-16] MEDS ORDERED: LITHIUM CARBONATE 450 MG TABLET.ER PO SCH (22:00)
[2022-05-17] MEDS: LEVOTHYROXINE NA 150 MCG TABLET PO SCH (06:14)
[2022-05-17] MEDS ORDERED: cefTRIAXone SODIUM 1 GM VIAL ONE (08:34)
[2022-05-17] MEDS ORDERED: DEXTROSE 5%-WATER - 50 ML IVPB ONE (08:34)
[2022-05-17 10:19] LABS: BASO % 0.5 % (0-2.0); EOS % 2.5 % (0-4.5); HEMATOCRIT 30.9 % (35.4-49); HEMOGLOBIN 10.6 GM/dL (11.7-16.9); LYMPH % 7.8 % (8-40); MCH 35.1 pg (25.7-33.7); MCHC 34.2 g/dl (32.0-35.9); MEAN CELL VOLUME 102.6 fl (80-96); MEAN PLT VOLUME 8.1 fl (7.5-11.1); MONO % 10.9 % (3.8-10.2); NEUT % 78.3 % (42.8-82.8); PLATELET COUNT 260 10^3/uL (134-434); RBC 3.01 M/mm3 (4.00-5.60); RDW 12.8 % (11.9-15.9); WHITE BLOOD COUNT 9.1 K/mm3 (4.0-10.0)
[2022-05-17] MEDS: CEFTRIAXONE 1 GM in DEXTROSE 5%-WATER - 50 ML IVPB SCH (10:23)
[2022-05-17] MEDS: busPIRone HCL 10 MG TABLET (FP) PO SCH ×2 (10:23→21:39)
[2022-05-17] MEDS: METOPROLOL TARTRATE 25 MG TABLET (FP) PO SCH ×2 (10:24→21:39)
[2022-05-17] MEDS: HEPARIN NA (PORCINE) 5,000 UNITS/ML 1ML VIAL SQ SCH ×2 (10:24→21:39)
[2022-05-17] MEDS: VALPROATE SODIUM 250 MG/5 ML UNIT DOSE CUP PO SCH ×2 (10:24→21:39)
[2022-05-17] MEDS: LACOSAMIDE 50 MG TABLET PO SCH ×2 (10:26→21:39)
[2022-05-17] MEDS: TAMSULOSIN HCL 0.4 MG CAP PO SCH (10:26)
[2022-05-17] MEDS: AZITHROMYCIN IVPB 500 MG/250 ML BAG IVPB SCH (10:28)
[2022-05-17] MEDS: LITHIUM CARBONATE 300 MG, LITHIUM CARBONATE 150 MG PO SCH ×3 (10:30→21:40)
[2022-05-17] MEDS: ENALAPRIL MALEATE 5 MG TABLET PO SCH (10:31)
[2022-05-17] MEDS: DESMOPRESSIN ACETATE 0.2 MG TABLET PO SCH (10:33)
[2022-05-17 11:04] LABS: CALCIUM 9.6 mg/dL (8.5-10.1)
[2022-05-17 11:05] LABS: ALBUMIN 2.7 g/dl (3.4-5.0); BLOOD UREA NITROGEN 16.2 mg/dL (7-18)
[2022-05-17 11:08] LABS: CREATININE 1.2 mg/dL (0.55-1.3)
[2022-05-17 11:09] LABS: BILIRUBIN,TOTAL 0.3 mg/dL (0.2-1)
[2022-05-17 11:10] LABS: TOT PROT 6.6 g/dl (6.4-8.2)
[2022-05-17] MEDS ORDERED: ALBUTEROL SO4 2.5/IPRATROPIUM 0.5 INH SOL 3 ML VIAL.NEB. NEB PRN (13:12)
[2022-05-18] MEDS: LEVOTHYROXINE NA 150 MCG TABLET PO SCH (06:11)
[2022-05-18] MEDS ORDERED: cefTRIAXone SODIUM 1 GM VIAL ONE (08:34)
[2022-05-18] MEDS ORDERED: DEXTROSE 5%-WATER - 50 ML IVPB ONE (08:34)
[2022-05-18] MEDS: CEFTRIAXONE 1 GM in DEXTROSE 5%-WATER - 50 ML IVPB SCH (09:42)
[2022-05-18] MEDS: VALPROATE SODIUM 250 MG/5 ML UNIT DOSE CUP PO SCH ×2 (09:42→21:01)
[2022-05-18] MEDS: busPIRone HCL 10 MG TABLET (FP) PO SCH ×2 (09:43→21:01)
[2022-05-18] MEDS: HEPARIN NA (PORCINE) 5,000 UNITS/ML 1ML VIAL SQ SCH ×2 (09:43→21:02)
[2022-05-18] MEDS: LACOSAMIDE 50 MG TABLET PO SCH ×2 (09:43→21:01)
[2022-05-18] MEDS: METOPROLOL TARTRATE 25 MG TABLET (FP) PO SCH ×2 (09:43→21:01)
[2022-05-18] MEDS: AZITHROMYCIN IVPB 500 MG/250 ML BAG IVPB SCH (09:43)
[2022-05-18] MEDS: TAMSULOSIN HCL 0.4 MG CAP PO SCH (09:43)
[2022-05-18] MEDS: LITHIUM CARBONATE 300 MG, LITHIUM CARBONATE 150 MG PO SCH ×2 (12:35→21:01)
[2022-05-18] MEDS: ENALAPRIL MALEATE 5 MG TABLET PO SCH (12:37)
[2022-05-18] MEDS: DESMOPRESSIN ACETATE 0.2 MG TABLET PO SCH (12:38)
[2022-05-19] MEDS: LEVOTHYROXINE NA 150 MCG TABLET PO SCH (07:15)
[2022-05-19] MEDS ORDERED: DEXTROSE 5%-WATER - 50 ML IVPB ONE (10:11)
[2022-05-19] MEDS ORDERED: cefTRIAXone SODIUM 1 GM VIAL ONE (10:11)
[2022-05-19] MEDS: VALPROATE SODIUM 250 MG/5 ML UNIT DOSE CUP PO SCH ×2 (10:42→21:19)
[2022-05-19] MEDS: HEPARIN NA (PORCINE) 5,000 UNITS/ML 1ML VIAL SQ SCH ×2 (10:42→21:18)
[2022-05-19] MEDS: TAMSULOSIN HCL 0.4 MG CAP PO SCH (10:42)
[2022-05-19] MEDS: METOPROLOL TARTRATE 25 MG TABLET (FP) PO SCH ×2 (10:42→21:18)
[2022-05-19] MEDS: busPIRone HCL 10 MG TABLET (FP) PO SCH ×2 (10:42→21:18)
[2022-05-19] MEDS: LACOSAMIDE 50 MG TABLET PO SCH ×2 (10:42→21:18)
[2022-05-19] MEDS: AZITHROMYCIN IVPB 500 MG/250 ML BAG IVPB SCH (10:43)
[2022-05-19] MEDS: CEFTRIAXONE 1 GM in DEXTROSE 5%-WATER - 50 ML IVPB SCH (10:43)
[2022-05-19] MEDS: LITHIUM CARBONATE 300 MG, LITHIUM CARBONATE 150 MG PO SCH ×2 (10:44→21:18)
[2022-05-19] MEDS: ENALAPRIL MALEATE 5 MG TABLET PO SCH (10:44)
[2022-05-19] MEDS: DESMOPRESSIN ACETATE 0.2 MG TABLET PO SCH (10:45)
[2022-05-19 17:07] LABS: IGA IMMUNOGLOBULIN 233 mg/dL (90-386); IGG QN IMMUNOGLOBULIN 1459 mg/dL (603-1613); IGM QN SERUM 85 mg/dL (20-172)
[2022-05-20] MEDS: LEVOTHYROXINE NA 150 MCG TABLET PO SCH (06:20)
[2022-05-20] MEDS ORDERED: DEXTROSE 5%-WATER - 50 ML IVPB ONE (09:49)
[2022-05-20] MEDS ORDERED: cefTRIAXone SODIUM 1 GM VIAL ONE (09:49)
[2022-05-20] MEDS: VALPROATE SODIUM 250 MG/5 ML UNIT DOSE CUP PO SCH ×2 (10:03→22:17)
[2022-05-20] MEDS: HEPARIN NA (PORCINE) 5,000 UNITS/ML 1ML VIAL SQ SCH ×2 (10:04→22:21)
[2022-05-20] MEDS: LACOSAMIDE 50 MG TABLET PO SCH ×2 (10:04→22:19)
[2022-05-20] MEDS: busPIRone HCL 10 MG TABLET (FP) PO SCH ×2 (10:04→22:19)
[2022-05-20] MEDS: TAMSULOSIN HCL 0.4 MG CAP PO SCH (10:04)
[2022-05-20] MEDS: AZITHROMYCIN IVPB 500 MG/250 ML BAG IVPB SCH (10:05)
[2022-05-20] MEDS: ENALAPRIL MALEATE 5 MG TABLET PO SCH (10:07)
[2022-05-20] MEDS: LITHIUM CARBONATE 300 MG, LITHIUM CARBONATE 150 MG PO SCH ×2 (10:07→22:18)
[2022-05-20] MEDS: DESMOPRESSIN ACETATE 0.2 MG TABLET PO SCH (10:08)
[2022-05-20] MEDS: METOPROLOL TARTRATE 25 MG TABLET (FP) PO SCH ×2 (10:09→22:19)
[2022-05-20] MEDS: CEFTRIAXONE 1 GM in DEXTROSE 5%-WATER - 50 ML IVPB SCH (11:47)
[2022-05-21] MEDS: LEVOTHYROXINE NA 150 MCG TABLET PO SCH (06:55)
[2022-05-21] MEDS: TAMSULOSIN HCL 0.4 MG CAP PO SCH (08:26)
[2022-05-21] MEDS: CEFTRIAXONE 1 GM in DEXTROSE 5%-WATER - 50 ML IVPB SCH (09:27)
[2022-05-21] MEDS: busPIRone HCL 10 MG TABLET (FP) PO SCH (09:28)
[2022-05-21] MEDS: METOPROLOL TARTRATE 25 MG TABLET (FP) PO SCH (09:29)
[2022-05-21] MEDS: HEPARIN NA (PORCINE) 5,000 UNITS/ML 1ML VIAL SQ SCH (09:29)
[2022-05-21] MEDS: LACOSAMIDE 50 MG TABLET PO SCH (09:29)
[2022-05-21] MEDS: VALPROATE SODIUM 250 MG/5 ML UNIT DOSE CUP PO SCH (09:36)
[2022-05-21] MEDS: LITHIUM CARBONATE 300 MG, LITHIUM CARBONATE 150 MG PO SCH (09:37)
[2022-05-21] MEDS: DESMOPRESSIN ACETATE 0.2 MG TABLET PO SCH (09:43)
[2022-05-21] MEDS: AZITHROMYCIN IVPB 500 MG/250 ML BAG IVPB SCH (09:47)
[2022-05-21] MEDS: ENALAPRIL MALEATE 5 MG TABLET PO SCH (09:47)
[2022-05-21 14:39] VITALS: BP 141/78; PULSE 71; TEMP 97.5
== END 2022-05-21 15:00 | disposition home or self-care (01) | DRG 194 ==
LOC: JER 07:58 → JERBED 10:11 → MERGE 10:11 → J5S 11:56
PROVIDERS: ADMIT Internal Medicine; ATTEND Internal Medicine
DX: J18.9 Pneumonia, unspecified organism (principal); J90 Pleural effusion, not elsewhere classified; G93.49 Other encephalopathy; I10 Essential (primary) hypertension; F32.A Depression, unspecified; E03.9 Hypothyroidism, unspecified; G40.909 Epilepsy, unspecified, not intractable, without status epilepticus; R62.50 Unspecified lack of expected normal physiological development in childhood; D64.9 Anemia, unspecified; F25.9 Schizoaffective disorder, unspecified
CPT/HCPCS: 0241U-QW; 36415; 71045-TC-FY; 71046-TC-FY; 71250-TC; 80053; 80164; 80178; 81003; 82784; 84443; 85025; 85651; 86738; 87086; 87899; 93005; 93010; 99285-25; C9803-CS; J1644; U0003; U0005

== ENCOUNTER 2022-05-21 23:56 | Inpatient (IN) | payer OTHER ==
[2022-05-22] MEDS ORDERED: NALOXONE HCL 0.4 MG/ML VIAL ONE (00:17)
[2022-05-22 01:04] LABS: HEMOGLOBIN 11.8 GM/dL (11.7-16.9); MCH 34.8 pg (25.7-33.7); MCHC 34.6 g/dl (32.0-35.9); MEAN CELL VOLUME 100.4 fl (80-96); MEAN PLT VOLUME 8.1 fl (7.5-11.1); PLATELET COUNT 312 10^3/uL (134-434); RBC 3.39 M/mm3 (4.00-5.60); RDW 12.5 % (11.9-15.9); WHITE BLOOD COUNT 7.8 K/mm3 (4.0-10.0)
[2022-05-22 01:12] VITALS: BMI 21.7
[2022-05-22 01:18] LABS: VENOUS BASE EXCESS -1.7 mmol/L (-2-2); VENOUS O2 SATURATION 37.1 % (70-80); VENOUS PCO2 48.6 mmHg (38-52); VENOUS PH 7.321 (7.310-7.410)
[2022-05-22 01:25] LABS: CALCIUM 10.6 mg/dL (8.5-10.1)
[2022-05-22 01:26] LABS: ALBUMIN 2.9 g/dl (3.4-5.0); BLOOD UREA NITROGEN 21.8 mg/dL (7-18)
[2022-05-22 01:28] LABS: CREATININE 1.3 mg/dL (0.55-1.3)
[2022-05-22 01:30] LABS: TOT PROT 7.6 g/dl (6.4-8.2)
[2022-05-22 02:20] LABS: BILIRUBIN,TOTAL 0.2 mg/dL (0.2-1)
[2022-05-22 03:25] LABS: ANISOCYTOSIS 1+; MACROCYTOSIS 1+
[2022-05-22] MEDS ORDERED: LEVOTHYROXINE NA 150 MCG TABLET PO SCH (07:00)
[2022-05-22] MEDS ORDERED: LEVOTHYROXINE 150 MCG, LEVOTHYROXINE 25 MCG PO SCH (07:00)
[2022-05-22] MEDS ORDERED: LEVOTHYROXINE NA 50 MCG TABLET (FP) ONE (07:38)
[2022-05-22] MEDS ORDERED: LEVOTHYROXINE NA 75 MCG TABLET (FP) ONE (07:38)
[2022-05-22] MEDS ORDERED: TAMSULOSIN HCL 0.4 MG CAP ONE (07:38)
[2022-05-22] MEDS: LEVOTHYROXINE 100 MCG, LEVOTHYROXINE 75 MCG PO SCH (08:01)
[2022-05-22] MEDS: TAMSULOSIN HCL 0.4 MG CAP PO SCH (08:01)
[2022-05-22] MEDS ORDERED: LACOSAMIDE 50 MG TABLET PO ONE ×2 (09:20→23:55)
[2022-05-22] MEDS ORDERED: metoPROLOL SUCCINATE 25 MG TAB.SR.24H (FP) PO ONE (09:20)
[2022-05-22] MEDS ORDERED: DIVALPROEX SODIUM 500 MG TABLET E.C. ONE (09:20)
[2022-05-22] MEDS ORDERED: DIVALPROEX SODIUM 500 MG TABLET E.C. PO SCH ×2 (10:00→21:26)
[2022-05-22] MEDS: LACOSAMIDE 50 MG TABLET PO SCH (10:51)
[2022-05-22] MEDS: metoPROLOL SUCCINATE 25 MG TAB.SR.24H (FP) PO SCH (10:51)
[2022-05-22] MEDS ORDERED: DEXTROSE 5%-0.45% SALINE 1,000 ML IV SCH (17:15)
[2022-05-22] MEDS ORDERED: clonazePAM 0.5 MG TABLET PO ONE (22:00)
[2022-05-22] MEDS ORDERED: clonazePAM 0.5 MG TABLET ONE (23:54)
[2022-05-23] MEDS ORDERED: busPIRone HCL 10 MG TABLET (FP) PO ONE (00:30)
[2022-05-23] MEDS: busPIRone HCL 5 MG TABLET PO ONE ×2 (03:41→03:45)
[2022-05-23] MEDS: DIVALPROEX 1,000 MG, DIVALPROEX 250 MG PO SCH ×3 (03:42→21:31)
[2022-05-23] MEDS ORDERED: TAMSULOSIN HCL 0.4 MG CAP ONE (07:07)
[2022-05-23] MEDS ORDERED: LEVOTHYROXINE NA 50 MCG TABLET (FP) ONE (07:07)
[2022-05-23] MEDS: TAMSULOSIN HCL 0.4 MG CAP PO SCH (07:38)
[2022-05-23] MEDS: LEVOTHYROXINE NA 150 MCG TABLET PO SCH (07:38)
[2022-05-23] MEDS ORDERED: LACOSAMIDE 50 MG TABLET PO ONE ×2 (09:58→20:33)
[2022-05-23] MEDS ORDERED: metoPROLOL SUCCINATE 25 MG TAB.SR.24H (FP) PO ONE (09:59)
[2022-05-23] MEDS: metoPROLOL SUCCINATE 25 MG TAB.SR.24H (FP) PO SCH (10:21)
[2022-05-23] MEDS: LACOSAMIDE 50 MG TABLET PO SCH ×3 (10:21→21:31)
[2022-05-24] MEDS: LEVOTHYROXINE NA 150 MCG TABLET PO SCH (06:00)
[2022-05-24] MEDS: DIVALPROEX 1,000 MG, DIVALPROEX 250 MG PO SCH ×2 (09:04→21:22)
[2022-05-24] MEDS: metoPROLOL SUCCINATE 25 MG TAB.SR.24H (FP) PO SCH (09:05)
[2022-05-24] MEDS: LACOSAMIDE 50 MG TABLET PO SCH ×2 (09:05→21:21)
[2022-05-24] MEDS: TAMSULOSIN HCL 0.4 MG CAP PO SCH (09:05)
[2022-05-25] MEDS: LEVOTHYROXINE NA 150 MCG TABLET PO SCH (07:00)
[2022-05-25] MEDS: DIVALPROEX 1,000 MG, DIVALPROEX 250 MG PO SCH ×2 (09:01→21:11)
[2022-05-25] MEDS: metoPROLOL SUCCINATE 25 MG TAB.SR.24H (FP) PO SCH (09:01)
[2022-05-25] MEDS: LACOSAMIDE 50 MG TABLET PO SCH ×2 (09:01→21:11)
[2022-05-25] MEDS: TAMSULOSIN HCL 0.4 MG CAP PO SCH (09:02)
[2022-05-25] MEDS ORDERED: POLYETHYLENE GLYCOL (HEALTHYLAX) 3350 17 GM PACKET PO SCH (10:00)
[2022-05-25] MEDS ORDERED: PATIENT'S OWN MEDICATION (NON-FORMULARY) (Lactulose [Lactulose] 10 GM/15 ML Solution) PO PRN (10:51)
[2022-05-25] MEDS ORDERED: LACTULOSE 20 GM/30 ML UDC (FOR ORAL USE ONLY) PO PRN (12:13)
[2022-05-25] MEDS: SENNOSIDES 8.6MG TABLET (FP) PO SCH ×2 (13:00→21:11)
[2022-05-25] MEDS ORDERED: CEFUROXIME AXETIL 500 MG TABLET PO ONE (17:41)
[2022-05-25] MEDS: AZITHROMYCIN 250 MG TABLET PO SCH (18:08)
[2022-05-25] MEDS: clonazePAM 0.5 MG TABLET PO SCH (20:41)
[2022-05-25] MEDS: CEFUROXIME AXETIL 500 MG TABLET PO SCH (21:11)
[2022-05-26] MEDS: LEVOTHYROXINE 100 MCG, LEVOTHYROXINE 75 MCG PO SCH (06:04)
[2022-05-26] MEDS: TAMSULOSIN HCL 0.4 MG CAP PO SCH (07:54)
[2022-05-26] MEDS: SENNOSIDES 8.6MG TABLET (FP) PO SCH ×2 (09:44→21:12)
[2022-05-26] MEDS: DIVALPROEX 1,000 MG, DIVALPROEX 250 MG PO SCH ×2 (09:44→21:12)
[2022-05-26] MEDS: CEFUROXIME AXETIL 500 MG TABLET PO SCH ×2 (09:45→21:13)
[2022-05-26] MEDS: clonazePAM 0.5 MG TABLET PO SCH ×3 (09:45→21:12)
[2022-05-26] MEDS: AZITHROMYCIN 250 MG TABLET PO SCH (09:45)
[2022-05-26] MEDS: LACOSAMIDE 50 MG TABLET PO SCH ×2 (09:45→21:12)
[2022-05-26] MEDS: metoPROLOL SUCCINATE 25 MG TAB.SR.24H (FP) PO SCH (09:45)
[2022-05-26] MEDS: DOCUSATE SODIUM 100 MG CAPSULE (FP) PO SCH ×2 (15:32→21:13)
[2022-05-26] MEDS: LITHIUM CARBONATE 450 MG TABLET.ER PO SCH ×2 (15:38→21:21)
[2022-05-26] MEDS ORDERED: DESMOPRESSIN ACETATE 0.2 MG TABLET PO SCH (22:00)
[2022-05-27] MEDS: DOCUSATE SODIUM 100 MG CAPSULE (FP) PO SCH ×2 (05:47→13:17)
[2022-05-27] MEDS: LEVOTHYROXINE 100 MCG, LEVOTHYROXINE 75 MCG PO SCH (06:08)
[2022-05-27] MEDS: TAMSULOSIN HCL 0.4 MG CAP PO SCH (09:00)
[2022-05-27] MEDS: LACOSAMIDE 50 MG TABLET PO SCH (09:00)
[2022-05-27] MEDS: metoPROLOL SUCCINATE 25 MG TAB.SR.24H (FP) PO SCH (09:00)
[2022-05-27] MEDS: DIVALPROEX 1,000 MG, DIVALPROEX 250 MG PO SCH (09:00)
[2022-05-27] MEDS: AZITHROMYCIN 250 MG TABLET PO SCH (09:01)
[2022-05-27] MEDS: clonazePAM 0.5 MG TABLET PO SCH ×2 (09:01→16:20)
[2022-05-27] MEDS: SENNOSIDES 8.6MG TABLET (FP) PO SCH (09:01)
[2022-05-27] MEDS: LITHIUM CARBONATE 450 MG TABLET.ER PO SCH (09:10)
[2022-05-27] MEDS: CEFUROXIME AXETIL 500 MG TABLET PO SCH (09:11)
[2022-05-27 14:52] VITALS: BP 134/78; PULSE 95; RESP 20; TEMP 98.4
== END 2022-05-27 18:39 | DRG 100 ==
LOC: JER 23:56 → JERBED 05-22 02:36 → J4S 05-23 22:27
PROVIDERS: ADMIT Internal Medicine; ATTEND Internal Medicine
DX: G40.909 Epilepsy, unspecified, not intractable, without status epilepticus (principal); G93.41 Metabolic encephalopathy; J18.9 Pneumonia, unspecified organism; F32.A Depression, unspecified; F20.9 Schizophrenia, unspecified; R00.0 Tachycardia, unspecified; R41.82 Altered mental status, unspecified; E03.9 Hypothyroidism, unspecified; F79 Unspecified intellectual disabilities; I10 Essential (primary) hypertension
CPT/HCPCS: 36415; 70450-TC; 71045-TC-FY; 80053; 80164; 80178; 80307; 82550; 82803; 82962; 83605; 83690; 84146; 84484; 85025; 93005; 93010; 97116-GP; 97161-GP; 99285-25; C9803-CS; U0003; U0005